=== PATIENT | female | born 1985 | race Caucasian/White ===

== ENCOUNTER 2017-12-30 10:45 | Outpatient (CLI) | payer MEDICARE, MEDICAID, SELFPAY ==
[2017-12-30 13:07] LABS: ALT 20 U/L (12-78); AST 15 U/L (15-37); Albumin 3.5 g/dL (3.4-5.0); Alkaline Phosphatase 35 U/L (46-116); Anion Gap 8.1 mmol/L (3-11); BUN 13 mg/dL (7-18); Bilirubin, Total 0.2 mg/dL (0.2-1.0); CO2 27.9 mmol/L (21.0-32.0); CREATININE 0.57 mg/dL (0.55-1.02); Calcium 8.8 mg/dL (8.5-10.1); Chloride 104 mmol/L (98-107); Cholesterol 192 mg/dL (50-200); Glucose 115 mg/dL (70-100); HDL Cholesterol 75 mg/dL (40-60); LDL CHOLESTEROL 107 mg/dL (<100); Potassium 4.3 mmol/L (3.5-5.1); Sodium 140 mmol/L (136-145); Total Protein 6.5 g/dL (6.4-8.2)
[2017-12-30 13:08] LABS: Triglyceride < 25 mg/dL (30-150)
== END 2017-12-30 11:05 ==
PROVIDERS: PCP Family Medicine; Visit Provider Family Medicine
DX: E11.9 Type 2 diabetes mellitus without complications (principal)
CPT/HCPCS: 36415; 80053; 80061; 83721; 83036

== ENCOUNTER 2018-02-02 02:11 | Outpatient (CLI) | payer MEDICARE, MEDICAID, SELFPAY ==
[2018-02-02 10:48] LABS: COMMENT (LAB VIEW ONLY) 88.66 mg/dL; Microalb ug/mg Crea 13.3 ug/mg Cr
== END 2018-02-02 02:31 ==
PROVIDERS: PCP Family Medicine; Visit Provider Family Medicine
DX: E11.9 Type 2 diabetes mellitus without complications (principal); Z79.4 Long term (current) use of insulin
CPT/HCPCS: 82043; 82570

== ENCOUNTER 2018-05-26 01:43 | Outpatient (CLI) | payer MEDICARE, MEDICAID, SELFPAY ==
[2018-05-26 09:41] LABS: Hemoglobin A1C 6.1 % (4.5-6.2)
[2018-05-26 10:09] LABS: Cholesterol 182 mg/dL (50-200); HDL Cholesterol 80 mg/dL (40-60); LDL CHOLESTEROL 93 mg/dL (<100)
[2018-05-26 10:29] LABS: Triglyceride < 25 mg/dL (30-150)
== END 2018-05-26 02:03 ==
PROVIDERS: PCP Family Medicine; Visit Provider Family Medicine
DX: E11.9 Type 2 diabetes mellitus without complications (principal); Z79.4 Long term (current) use of insulin
CPT/HCPCS: 36415; 80061; 83721; 83036

== ENCOUNTER 2018-09-07 01:44 | Outpatient (CLI) | payer MEDICARE, MEDICAID, SELFPAY ==
[2018-09-07 09:23] LABS: ALT 18 U/L (12-78); AST 12 U/L (15-37); Albumin 3.6 g/dL (3.4-5.0); Alkaline Phosphatase 44 U/L (46-116); Anion Gap 9.5 mmol/L (3-11); BUN 9 mg/dL (7-18); Bilirubin, Total 0.3 mg/dL (0.2-1.0); CO2 26.5 mmol/L (21.0-32.0); CREATININE 0.55 mg/dL (0.55-1.02); Calcium 8.5 mg/dL (8.5-10.1); Chloride 104 mmol/L (98-107); Glucose 130 mg/dL (70-100); Hemoglobin A1C 6.5 % (4.5-6.2); Sodium 140 mmol/L (136-145); Total Protein 6.7 g/dL (6.4-8.2)
== END 2018-09-07 02:04 ==
PROVIDERS: PCP Family Medicine; Visit Provider Family Medicine
DX: E11.9 Type 2 diabetes mellitus without complications (principal)
CPT/HCPCS: 36415; 80053; 83036

== ENCOUNTER 2018-10-20 15:00 | Emergency (ER) | payer MEDICARE, MEDICAID, SELFPAY ==
[2018-10-20 15:18] VITALS: BP 109/68; PULSE 97; RESP 16; TEMP 36.9; O2SAT 97
--- NOTE | 2018-10-20 15:31 | DI.CT_ITS ---
SYMPTOM/DIAGNOSIS: LEFT LOWER QUADRANT PAIN CT ABDOMEN AND PELVIS: There are no prior comparison exams. Images were performed from the lung bases through the ischial tuberosities after IV and without benefit of oral contrast. The bowel is not well evaluated without oral contrast especially due to the lack of intra-abdominal fat. There is food and fluid within the stomach which does not appear abnormally distended,. There is no bowel dilatation or wall thickening. The appendix appears normal. There is a small amount of fluid in the lower pelvis. There is a collapsing follicle of the left ovary. The right ovary is unremarkable. The urinary bladder is somewhat distended and there is a question of wall thickening. The uterus and right ovary are unremarkable. There is a tiny nonobstructing stone at the lower pole of the right kidney. The kidneys are otherwise normal in appearance. The lung bases are clear. The liver, spleen and adrenals are unremarkable. The gallbladder is contracted. The aorta is normal in diameter. IMPRESSION: Distended urinary bladder, question of wall thickening. Collapsing cysts or follicle of the left ovary with mild amount of pelvic fluid.
--- NOTE | 2018-10-20 15:32 | W.ED.GENAD ---
Discharge Plan Disposition Patient Disposition: HOME Condition: Stable Discharge Details Chief Complaint: Abd Prob Clinical Impression: Ovarian cyst, Abdominal pain Primary Care Provider: Evon Krause ED Provider: Yevgeniy Hernandez [place] Meds and New Rx's Prescriptions: Continued melatonin 3 MG tablet 3 mg PO HS RF: 0 ibuprofen 200 MG capsule 1 - 2 cap PO Q 8 HR PRN Qty: 100 RF: 4 MULTIVITAMIN GUMMY 1 tab PO DAILY RF: 0 ONETOUCH ULTRA TEST STRIPS 1 EACH strip 1 strip Miscellaneous BID Qty: 200 RF: 4 guanfacine 2 mg tablet 2 mg PO BID RF: 0 aripiprazole [Abilify] 15 mg tablet 15 mg PO HS Qty: 90 RF: 2 (DME) lancets 28 gauge misc 1 ea Miscellaneous BID Qty: 100 RF: 6 liraglutide 0.6 mg/0.1 mL (18 mg/3 mL) pen injector 1.2 mg SC DAILY Qty: 9 RF: 3 metformin 500 mg tablet 500 mg PO BID Qty: 180 RF: 3 (DME) pen needle, diabetic 31 gauge x 1/6 needle See Dose Instructions .ROUTE .MEDSUPPLY Qty: 100 RF: 4 pravastatin 40 mg tablet 40 mg PO DAILY Qty: 90 RF: 4 fluoxetine 10 mg capsule 10 mg PO DAILY Qty: 30 RF: 6 fluoxetine 20 mg capsule 20 mg PO DAILY Qty: 30 RF: 6 trazodone 100 MG tablet 100 mg PO HS RF: 0 vitamin B complex 1 EACH capsule 1 tab PO QAM RF: 0 ondansetron 4 MG tablet,disintegrating 4 mg PO Q6H PRN (Reason: Nausea) Qty: 12 RF: 0 Discharge Instructions Instructions: Ovarian Cyst (ED) Medical Decision Making 33 yo female with hx of obsessive compulsive, adhd, t2dm, who denies prior surgeries, comes in with llq pain since around 9 am. Denies pain yesterday and has no fevers, chills, sob, n/v or diarrhea. On exam has llq pain with palpation no other pain elsewhere. Suspect diverticulitis, will obtain lab work and imaging to further evaluate labs unremarkable and CT shows ovarian cyst. Her pain is significantly improved and has no tenderness now so doubt torsion. Will d/c home and advised f/u with pcp and return precautions given Differential Diagnosis diverticulitis, ovarian cyst, colitis Imaging Data Radiologic Study: Attestation: I personally reviewed and interpreted this imaging study as follows: Imaging: CT Scan Radiologist's impression: IMPRESSION: 1. Probable collapsing left ovarian cyst measuring 2 cm with a small amount of free fluid in left adnexa. Recommend correlation with clinical findings and followup pelvic ultrasound. 2. The gallbladder is contracted. Please correlate to patient's prandial state. Lab Data Lab results reviewed: Yes I reviewed the patient's lab results. HPI General Mode of arrival: ambulatory. Date/Time Provider Initiated Documentation: 10/20/18 15:25. Limitations to Documentation: no limitations. Information obtained by: patient. History of Present Illness 33 year old F presents to the emergency department with the chief complaint of abdominal pain, described as moderate, Quality is described as aching, and is localized to the abdomen. Patient reports no radiation. Patient started experiencing this hour(s) (6) and it has been constant. No relieving factors improve symptom(s), No exacerbating factors reported . Patient did receive the following treatments prior to arrival, none Related Data Home Medications Medication Instructions Recorded Confirmed melatonin 3 mg PO HS 06/21/14 10/20/18 trazodone 100 mg PO HS 09/30/14 10/20/18 vitamin B complex 1 tab PO QAM 09/30/14 10/20/18 ibuprofen 1 - 2 cap PO Q 8 HR PRN #100 02/26/15 10/20/18 tab-cap Multivitamin Gummy 1 tab PO DAILY 12/31/16 10/20/18 ondansetron 4 mg PO Q6H PRN #12 tabef 06/18/17 10/20/18 guanfacine 2 mg tablet 2 mg PO BID tab 08/02/18 10/20/18 aripiprazole 15 mg tablet 15 mg PO HS #90 tab 09/28/18 10/20/18 fluoxetine 10 mg capsule 10 mg PO DAILY #30 cap 09/28/18 10/20/18 fluoxetine 20 mg capsule 20 mg PO DAILY #30 cap 09/28/18 lancets 28 gauge #100 each 09/28/18 liraglutide 0.6 mg/0.1 mL (18 mg/3 1.2 mg SC DAILY #9 ml 09/28/18 10/20/18 mL) subcutaneous pen injector metformin 500 mg tablet 500 mg PO BID #180 tab-cap 09/28/18 10/20/18 pen needle, diabetic 31 gauge x #100 each 09/28/1802/27 pravastatin 40 mg tablet 40 mg PO DAILY #90 tab 09/28/18 10/20/18 Previous Rx's Medication Instructions Recorded ondansetron 4 mg PO Q6H PRN #12 tabef 06/18/17 aripiprazole 15 mg tablet 15 mg PO HS #90 tab 09/28/18 fluoxetine 10 mg capsule 10 mg PO DAILY #30 cap 09/28/18 fluoxetine 20 mg capsule 20 mg PO DAILY #30 cap 09/28/18 lancets 28 gauge #100 each 09/28/18 liraglutide 0.6 mg/0.1 mL (18 mg/3 1.2 mg SC DAILY #9 ml 09/28/18 mL) subcutaneous pen injector metformin 500 mg tablet 500 mg PO BID #180 tab-cap 09/28/18 pen needle, diabetic 31 gauge x #100 each 09/28/1802/27 pravastatin 40 mg tablet 40 mg PO DAILY #90 tab 09/28/18 Allergies Allergy/AdvReac Type Severity Reaction Status Date / Time sertraline AdvReac Intermediate agitation Verified 10/20/18 15:21 General Stated Complaint: Abd Prob VALDO: 3 Review of Systems Review of Systems All systems reviewed & are unremarkable except as noted in HPI and below Constitutional Denies chills, Denies fever(s) and Denies weakness ENT Denies change in voice Cardiovascular Denies chest pain and Denies dyspnea Respiratory Denies cough and Denies dyspnea Gastrointestinal Denies nausea and Denies vomiting Integumentary/Breasts Denies rash Neurologic Denies weakness Endocrine Denies cold intolerance and Denies heat intolerance [facility] Medical History (Updated 09/06/18 @ 08:46 by Evon Krause MD) Attention deficit hyperactivity disorder, combined type (Acute) Benign essential tremor (Acute 02/01/17) evaluated by Controlled type 2 diabetes mellitus without complication, with long-term current use of insulin (Acute 10/29/16) opthtalmo. negative neg.nephropathy alcohol syndrome (Acute 08/23/12) History of developmental delay (Acute 10/22/15) Obsessive-compulsive disorder (Acute) Surgical History (Updated 07/16/19 @ 08:44 by Evon Krause MD) Status post nail surgery (Inactive) Family History Mother No problems noted. Father Essential hypertension Sister No problems noted. Grandfather Stroke Grandfather No problems noted. Grandmother Heart disease Grandmother No problems noted. Social History Smoking/Tobacco Use Status: Never Alcohol Intake: never Drug use: Never Do you feel safe in your relationship?: Yes Exam Const General: no acute distress Orientation: alert HENMT Head: normal to inspection Ears: external ears normal General nose exam: external nose normal Mouth: moist mucous membranes Eyes General: appearance normal, both eyes and all related structures Neck Neck: normal visual inspection Resp Effort & Inspection: normal respiratory effort and able to speak in complete sentences Cardio Rate: regular rate GI Inspection: normal to inspection Palpation: soft Skin General skin exam: no rashes or lesions noted Neuro General: alert and oriented x3 Extrem General: normal to inspection Psych Mental Status: mental status grossly normal Course Vital Signs Temperature 36.9 C 10/20/18 15:18 Pulse 97 H 10/20/18 15:18 Respiratory Rate 16 10/20/18 15:18 Blood Pressure 109/68 10/20/18 15:18 Pulse Oximetry 97 10/20/18 15:18 Temperature 36.9 C 10/20/18 15:18 Temperature Source Skin 10/20/18 15:18 Pulse 97 H 10/20/18 15:18 Respiratory Rate 16 10/20/18 15:18 Respiratory Effort Non-Labored 10/20/18 15:18 Blood Pressure 109/68 10/20/18 15:18 Blood Pressure Position Sitting 10/20/18 15:18 Pulse Oximetry 97 10/20/18 15:18 Oxygen Delivery Method Room Air 10/20/18 15:18 Oxygen Flow Rate 0 10/20/18 15:18 Pain Level 10 10/20/18 15:18
[2018-10-20 15:46] LABS: Absolute Basophil Count 0.01 k/cumm (0.0-0.2); Absolute Eosinophil Count 0.06 k/cumm (0.0-0.7); Absolute Lymphocyte Count 1.25 k/cumm (1.2-3.4); Absolute Monocyte Count 0.53 k/cumm (0.11-0.7); Absolute Neutrophil Count 3.82 k/cumm (1.2-6.7); Basophils % 0.2; Eosinophils % 1.1; HCT 38.5 % (36.0-46.0); HGB 12.8 g/dL (12.0-15.5); Mean Corp. HGB Concentration 33.2 g/dL (32.0-36.0); Mean Corpuscular Hemoglobin 30.5 pg (27.0-33.0); Mean Corpuscular Volume 91.9 fL (80-95); Monocytes % 9.3; Neutrophils % 67.4; Platelet Count 229 x1000/uL (130-400); RBC 4.19 m/cumm (4.00-5.20); RBC Distribution Width 12.8 % (11.7-14.6); White Blood Cell Count 5.67 k/cumm (4.4-10.8)
[2018-10-20] MEDS: Ketorolac 15 MG/ML VIAL IVP (15:50)
[2018-10-20] MEDS: Normal Saline 1,000 ML 1000 ML IV (15:50)
[2018-10-20 15:51] LABS: Bilirubin Negative (Negative); Blood Negative (Negative); Clarity Clear (Clear); Glucose 100 mg/dL (Negative); Ketones Negative (Negative); Leukocyte Esterase Small (Negative); Nitrite Negative (Negative); Urobilinogen 0.2 EU/dL (Up TO 0.2); pH 5.5 (5-8)
[2018-10-20 15:59] LABS: ALT 19 U/L (14-59); AST 11 U/L (15-37); Albumin 3.5 g/dL (3.4-5.0); Alkaline Phosphatase 44 U/L (46-116); BUN 12 mg/dL (7-18); Bilirubin, Total 0.2 mg/dL (0.2-1.0); CREATININE 0.54 mg/dL (0.55-1.02); Calcium 8.8 mg/dL (8.5-10.1); Chloride 105 mmol/L (98-107); Glucose 170 mg/dL (70-100); Lipase 178 U/L (73-393); Potassium 3.6 mmol/L (3.5-5.1); Sodium 141 mmol/L (136-145); Total Protein 7.4 g/dL (6.4-8.2)
[2018-10-20 16:07] LABS: Bacteria Rare HPF (Negative); Epithelial Cells Many HPF (Negative); RBC Negative (0-2)
[2018-10-20 16:08] LABS: C & S Indicated? Yes; Casts Negative LPF (Negative); Crystals Negative HPF (Negative); Mucus Negative (Negative)
[2018-10-20] MEDS: Omnipaque 350 MG/ML 100 ML BTL IJ (16:57)
--- NOTE | 2018-10-20 17:20 | DI.VRAD_ITS ---
EXAM: CT Abdomen and Pelvis With Contrast EXAM DATE/TIME: 10/20/2018 3:32 PM CLINICAL HISTORY: 33 years old, female; Other: Lt lower quadrant pain TECHNIQUE: Imaging protocol: Computed tomography of the abdomen and pelvis with intravenous contrast. Radiation optimization: All CT scans at this facility use at least one of these dose optimization techniques: automated exposure control; mA and/or kV adjustment per patient size (includes targeted exams where dose is matched to clinical indication); or iterative reconstruction. COMPARISON: No relevant prior studies available. FINDINGS: Liver: The liver is unremarkable. Gallbladder and bile ducts: There is a contracted gallbladder. Pancreas: The pancreas is normal. Spleen: The spleen is normal. Adrenals: No adrenal mass is present. Kidneys and ureters: The kidneys excrete contrast normally without evidence of solid renal mass or hydronephrosis. Stomach and bowel: Normal. No obstruction. No mucosal thickening. Appendix: No current CT evidence of appendicitis. Intraperitoneal space: Normal. No free air. No significant fluid collection. Vasculature: Normal. No abdominal aortic aneurysm. Lymph nodes: Normal. No enlarged lymph nodes. Bladder: Unremarkable as visualized. Reproductive: There is a 2.0 cm cystic lesion in the left adnexa probably in the left ovary was slightly irregularly shaped wall with enhancement may resent a collapsing cyst with a small amount of fluid in the left adnexa. Bones/joints: No acute fracture. No dislocation. Soft tissues: Unremarkable. IMPRESSION: 1. Probable collapsing left ovarian cyst measuring 2 cm with a small amount of free fluid in left adnexa. Recommend correlation with clinical findings and followup pelvic ultrasound. 2. The gallbladder is contracted. Please correlate to patient's prandial state. Dictated and Authenticated by: Tai Martins MD. Ordering:LIVE Vuong MD
[2018-10-20 17:37] VITALS: BP 109/68; PULSE 97; RESP 16; TEMP 36.9; O2SAT 97
== END 2018-10-20 17:36 | disposition home or self-care (01) ==
PROVIDERS: Emergency Provider Emergency Medicine; PCP Family Medicine
DX: N83.202 Unspecified ovarian cyst, left side (principal); R10.32 Left lower quadrant pain; E11.9 Type 2 diabetes mellitus without complications; Z79.4 Long term (current) use of insulin
CPT/HCPCS: 36415; 80053; 81025; 83690; 96361; 96374; 99285; 74177; 81003; 81015; 85025; 87086; 99284; J1885; J3490

== ENCOUNTER 2018-12-12 02:09 | Outpatient (CLI) | payer MEDICARE, MEDICAID, SELFPAY ==
[2018-12-12 11:29] LABS: Hemoglobin A1C 6.6 % (4.5-6.2)
[2018-12-12 11:34] LABS: ALT 15 U/L (14-59); AST 12 U/L (15-37); Albumin 3.5 g/dL (3.4-5.0); Alkaline Phosphatase 44 U/L (46-116); Anion Gap 9.7 mmol/L (3-11); BUN 10 mg/dL (7-18); Bilirubin, Total 0.3 mg/dL (0.2-1.0); CO2 28.3 mmol/L (21.0-32.0); CREATININE 0.58 mg/dL (0.55-1.02); Calcium 8.9 mg/dL (8.5-10.1); Chloride 103 mmol/L (98-107); Glucose 164 mg/dL (70-100); Potassium 4.3 mmol/L (3.5-5.1); Sodium 141 mmol/L (136-145); TSH 1.28 uIU/mL (0.36-3.74); Total Protein 6.8 g/dL (6.4-8.2)
== END 2018-12-12 02:29 ==
PROVIDERS: PCP Family Medicine; Visit Provider Family Medicine
DX: E11.9 Type 2 diabetes mellitus without complications (principal); R53.83 Other fatigue
CPT/HCPCS: 36415; 80053; 83036; 84443

== ENCOUNTER 2019-08-27 15:06 | Emergency (ER) | payer MEDICARE, MEDICAID, SELFPAY ==
[2019-08-27 15:10] VITALS: BP 108/73; PULSE 80; TEMP 36.8; O2SAT 97
[2019-08-27 15:17] VITALS: RESP 17
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
[2019-08-27 15:50] LABS: Bilirubin Negative (Negative); Blood Negative (Negative); Clarity Clear (Clear); Glucose Negative (Negative); Ketones Negative (Negative); Leukocyte Esterase Negative (Negative); Nitrite Negative (Negative); Specific Gravity 1.025 (1.005-1.025); Urobilinogen 0.2 EU/dL (Up TO 0.2); pH 5.5 (5-8)
[2019-08-27 16:27] LABS: *AMPHETAMINES SCREEN URINE Negative (Negative); *BARBITURATES SCREEN URINE Negative (Negative); *BENZODIAZEPINES SCREEN URINE Negative (Negative); Cannabinoids THC Negative (Negative); Cocaine Screen,Urine Negative (Negative); METHADONE URINE SCREEN Negative (Negative); OPIATES URINE SCREEN Negative (Negative)
[2019-08-27 16:33] LABS: Tricyclic Antidepressants Negative (Negative)
--- NOTE | 2019-08-27 19:33 | NUR.NOTE ---
Nursing Note: Mental health contacted as pt requests to speak to rackman.
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
[2019-08-27 20:48] VITALS: BP 106/87; PULSE 99; RESP 16; TEMP 36.6; O2SAT 98
== END 2019-08-27 20:45 | disposition home or self-care (01) ==
PROVIDERS: Emergency Medicine; Emergency Provider Emergency Medicine; PCP Family Medicine
DX: T50.912A Poisoning by multiple unspecified drugs, medicaments and biological substances, intentional self-harm, initial encounter (principal); F42.9 Obsessive-compulsive disorder, unspecified; R45.4 Irritability and anger; F81.9 Developmental disorder of scholastic skills, unspecified; E11.9 Type 2 diabetes mellitus without complications; Z79.84 Long term (current) use of oral hypoglycemic drugs
CPT/HCPCS: 36416; 80307; 82962; 93005; 99283; 81003; 93010; 99284

== ENCOUNTER 2019-10-09 16:47 | Outpatient (REF) | payer MEDICARE, MEDICAID, SELFPAY ==
--- NOTE | 2019-10-09 14:30 | PAPFT_PTH ---
PATIENT: Lady Farr LOC: [facility] U#:[id number] AGE/SX: 34/F ROOM: RE10/09/[address]: Evon Krause MD : 1985 BED: DIS: 10/09/2019 SPEC #: [id number] RECD: 10/10/19 12:41 STATUS: JOAN REJenny #: [id number] SHERRY: 10/09/19 14:[address]: Evon Krause [facility]PT[facility] Cytology RECD BY: Elizabeth Berry Tissues: 1 - CX/ENDOCX FOR PAP SMEARS Procedures: PAP THIN PREP/UVM Screening HPV DNA PROBE Comments: [id number]
== END 2019-10-09 17:07 ==
LOC: LBN 16:47
PROVIDERS: PCP Family Medicine; Visit Provider Family Medicine
DX: Z11.51 Encounter for screening for human papillomavirus (HPV) (principal)
CPT/HCPCS: 88142; 87624

== ENCOUNTER 2020-03-29 01:12 | Outpatient (CLI) | payer MEDICARE, MEDICAID, SELFPAY ==
[2020-03-29 12:58] LABS: Hemoglobin A1C 6.2 % (<5.7)
[2020-03-29 14:02] LABS: ALT 18 U/L (14-59); AST 15 U/L (15-37); Albumin 4.1 g/dL (3.4-5.0); Alkaline Phosphatase 42 U/L (46-116); Anion Gap 9.2 mmol/L (3-11); BUN 12 mg/dL (7-18); Bilirubin, Total 0.3 mg/dL (0.2-1.0); CO2 28.8 mmol/L (21.0-32.0); CREATININE 0.6 mg/dL (0.55-1.02); Calcium 9.4 mg/dL (8.5-10.1); Calculated LDL 137 mg/dL (<100); Chloride 104 mmol/L (98-107); Cholesterol 234 mg/dL (<200); Glucose 111 mg/dL (74-106); HDL Cholesterol 92 mg/dL (40-60); Potassium 4.2 mmol/L (3.5-5.1); Sodium 142 mmol/L (136-145); Total Protein 7.3 g/dL (6.4-8.2); Triglyceride 25 mg/dL (<150)
== END 2020-03-29 01:13 | disposition home or self-care (01) ==
LOC: LOS 01:12
PROVIDERS: PCP Family Medicine; Visit Provider Family Medicine
DX: E11.9 Type 2 diabetes mellitus without complications (principal)
CPT/HCPCS: 36415; 80053; 80061; 83036

== ENCOUNTER 2020-05-09 11:47 | Inpatient (IN) | payer MEDICARE, MEDICAID, SELFPAY ==
[2020-05-09 12:06] VITALS: BP 121/74; PULSE 91; RESP 16; TEMP 36.7; O2SAT 99
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
[2020-05-09 13:14] LABS: Bilirubin Negative (Negative); Blood Negative (Negative); Clarity Clear (Clear); Glucose Negative (Negative); Ketones Negative (Negative); Leukocyte Esterase Negative (Negative); Nitrite Negative (Negative); Specific Gravity <= 1.005 (1.005-1.025); Urobilinogen 0.2 EU/dL (Up TO 0.2); pH 5.5 (5-8)
[2020-05-09 13:22] LABS: Abs Immature Grans 0.01 10^3/uL (0.0-0.06); Absolute Basophil Count 0.02 10^3/uL (0.0-0.2); Absolute Eosinophil Count 0.56 10^3/uL (0.0-0.7); Absolute Lymphocyte Count 1.36 10^3/uL (1.2-3.4); Absolute Monocyte Count 0.33 10^3/uL (0.1-0.8); Absolute Neutrophil Count 3.66 10^3/uL (1.2-6.7); Basophils % 0.3; Eosinophils % 9.4; HCT 42.9 % (36.0-46.0); HGB 14.3 g/dL (11.2-15.7); Immature Grans % 0.2; Lymphocytes % 22.9; MCH 31.2 pg (27.0-33.0); MCHC 33.3 % (32.0-36.0); MCV 93.5 fL (80-95); MPV 9.8 fL (8.0-11.0); Monocytes % 5.6; Neutrophils % 61.6; Nucleated RBC 0 %; Platelet Count 237 10^3/uL (130-400); RBC 4.59 10^6/uL (3.93-5.22); RDW 12.6 % (11.7-14.6); RDW-SD 43.3 fL; WBC 5.94 10^3/uL (4.4-10.8)
[2020-05-09 13:22] LABS: *AMPHETAMINES SCREEN URINE Negative (Negative); *BARBITURATES SCREEN URINE Negative (Negative); *BENZODIAZEPINES SCREEN URINE Negative (Negative); Cannabinoids THC Negative (Negative); Cocaine Screen,Urine Negative (Negative); METHADONE URINE SCREEN Negative (Negative); OPIATES URINE SCREEN Negative (Negative)
[2020-05-09 13:24] LABS: Tricyclic Antidepressants Negative (Negative)
[2020-05-09 13:35] LABS: ALT 18 U/L (14-59); AST 11 U/L (15-37); Albumin 4.1 g/dL (3.4-5.0); Alkaline Phosphatase 48 U/L (46-116); BUN 15 mg/dL (7-18); Bilirubin, Total 0.2 mg/dL (0.2-1.0); CREATININE 0.5 mg/dL (0.55-1.02); Chloride 103 mmol/L (98-107); Glucose 121 mg/dL (74-106); Potassium 3.6 mmol/L (3.5-5.1); Sodium 139 mmol/L (136-145); Total Protein 8.2 g/dL (6.4-8.2)
[2020-05-09 13:35] LABS: Source Nasal/Nares
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
[2020-05-09 14:13] LABS: Salicylate < 2.8 mg/dL (<2.8)
[2020-05-09 14:17] LABS: COVID-19 PCR Negative (Negative)
[2020-05-09 14:18] LABS: Acetaminophen < 2 ug/mL (10-30)
--- NOTE | 2020-05-09 14:33 | CMSP_ITS ---
- If Service Date Differs Date of service: 05/09/20 Time of Service: 14:33 Care Management Safety Plan Status: Voluntary Chief Complaint: Lady is a 34 year old female who comes to the ED due to increased agitation and dangerous behaviors. Lady, who receives services through the IDDS Program at [facility], has an extensive psychiatric history. She is impulsive and has the potential of becoming quite destructive and assaultive to staff. Lady is pleasant when meets with her, but she appears anxious and has difficulty sitting still. She asks repeatedly if she is going anywhere tonight. provides her with a Ismael deck of cards, as she reportedly enjoys the game and playing Ismael helps to keep her calm. also offers a coloring book and crayons, which Lady declines saying she does not like to color. Referrals were made to [facility], [facility], and [facility]. There are no available beds this evening but [facility] and [facility] are considering her for admission tomorrow. VOLUNTARY FOR INPATIENT PSYCHIATRIC STABILIZATION. Patient is appropriate in all interactions since arriving at [facility]; Pt has demonstrated appropriate coping and communication skills, has articulated his or her needs and concerns and is fully engaged during staff interactions. Safety plan has been established with patient, and care team, to adhere to patient goals, identify restrictions based on behavioral status, address nutrition, and determine allowed personal belongings, tools for hygiene and personal care. Determine level of activity including ambulation, level of supervision, visitors, and determine privileges based on behaviors and level of engagement by pt. SAFETY PLAN: 1. Will remain on suicide precautions. In Paper Clothes 2. Will remain in room under direct supervision of one-on-one staff at all times provided by CPSO, TELEVISION AGENT, NARCOTICS INVESTIGATOR walking dragline operator. 3. May have paper cups, plates, finger foods as well as a cardboard spoon with which to eat meals. 4. Follow [facility] Management of the Admitted Behavioral Health Patient policy. 5. Comfort bath system only while in the ED. If moved to Med/Surg, permitted to shower at RN discretion. 6. No personal belongings 7. Visitors: Limited to [facility] IDDS Program staff. 8. Activities: Television if available, cards, and other activities at nursing discretion. 9. Bathroom privileges: Must be accompanied by staff while in the ED. If moved to Med/Surg, may use bathroom in room without supervision. 10. Phone: Phone use at the discretion of nursing staff. 11. Due to VOLUNTARY status, if patient wishes to leave [facility], staff will contact [facility] Crisis Screener ([phone]) and On-Call Medical/Surgery Registered Nurse ([phone]) as soon as possible. In the event of elopement, notify [facility] Police ([phone]). Patient is currently voluntarily at [facility] and seeking inpatient admission when a bed becomes available. [facility] Frontline Therapist Asst will continue seeking placement. Please contact the Electrocardiograph Repairer Medical/Surgery Registered Nurse ([phone]) and [facility] Therapist Asst ([phone]) for any needed changes in the Safety Plan. Safety plan has been provided to interdepartmental care team.
--- NOTE | 2020-05-09 15:11 | PDOC.MHCN ---
Date of service: 05/09/20 Time of Service: 15:11 Mental Health Crisis Note Presenting Issue How did you arrive at the ED and why did you come: Pt came to the ER today at the request of this clinician due to increased dangerous behaviors that have not been able to be managed or redirected as her treatment team would usually do. Precipitating Factors Pt reported that she is suicidal and wants to stab herself in the arm with a fork. She denied HI however, endorses wanting ot hurt people when she gets in this state. Disposition BEHAVIOR: Pt is cooperative with the assessment other than being anxious about the outcome. EYE CONTACT: Pt makes good eye contact. MOOD: Pt reported she is depressed and misses her boyfriend and her father. AFFECT: Pt's affect is anxious and tearful. APPETITE: Pt's appetite is good. SLEEP(trouble falling/staying asleep: Pt reported she is unable to sleep. Plan Pt reported that she knows she is in crisis when she has an overwhelming feeling to hurt others, break things, spit at others, and threaten to hurt others. She currently will play games, eat, take deep breathes and eat to deal with crisis. She identified her grandmother, sister and sister's and daughter as her natural supports. She identified her professional supports are her employment case manager, psychiatrist, previous correctional casework specialist and Direct Support Professionals. When asked what is worth living for Pt stated I don't know. Pt agrees that she needs help now and possibly a medication adjustment. She is willing to go to [facility] to be medically cleared and is seeking a voluntary psychiatric admission. Although the behaviors witnessed over the last two weeks have not been abnormal for her to do with the exception of the defecating and urinating on the floor, it is not typical for those behaviors to be this intense or ongoing as long as they have been. Because of this the Pt's team believe that her current state is not typical nor for her to be this unmanageable for the extended amount of time where she is not able to be redirected. Referrals have been sent to [facility], [facility] and [facility] Signature Clinician's Name/Title: Shae Wright MS, [facility] Emergency Services Clinician, [facility]
[2020-05-09] MEDS: LORazepam 1 MG TAB 2 MG PO ×2 (15:45→19:08)
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
[2020-05-09] MEDS: Amoxicillin 875/Clav. 125 TAB PO (19:58)
[2020-05-09 20:06] LABS: *AMPHETAMINES SCREEN URINE Negative (Negative); *BARBITURATES SCREEN URINE Negative (Negative); *BENZODIAZEPINES SCREEN URINE Negative (Negative); Cannabinoids THC Negative (Negative); Cocaine Screen,Urine Negative (Negative); METHADONE URINE SCREEN Negative (Negative); OPIATES URINE SCREEN Negative (Negative)
[2020-05-09 20:13] LABS: Tricyclic Antidepressants Negative (Negative)
[2020-05-09 20:18] LABS: Bilirubin Negative (Negative); Blood Negative (Negative); Clarity Clear (Clear); Glucose Negative (Negative); Ketones Negative (Negative); Leukocyte Esterase Negative (Negative); Nitrite Negative (Negative); Specific Gravity 1.025 (1.005-1.025); Urobilinogen 0.2 EU/dL (Up TO 0.2)
[2020-05-09] MEDS: ARIPiprazole 15 MG TAB PO (21:36)
[2020-05-09] MEDS: traZODone 100 MG TAB PO (21:37)
[2020-05-09] MEDS: Pravastatin 40 MG TAB 80 MG PO (21:37)
[2020-05-09] MEDS: Melatonin 3 MG TAB PO (21:37)
[2020-05-09] MEDS: metFORMIN 500 MG TAB PO (21:37)
[2020-05-10] MEDS: Acetaminophen 325 MG TAB 650 MG PO ×2 (04:13→19:45)
[2020-05-10] MEDS: LORazepam 1 MG TAB PO (04:58)
--- NOTE | 2020-05-10 08:14 | NUR.NOTE ---
Nursing Note: Emmie Pinto, guardian, .
[2020-05-10] MEDS: guanFACINE 1 MG TAB 2 MG PO ×2 (08:21→21:32)
[2020-05-10] MEDS: FLUoxetine 10 MG TAB 30 MG PO (08:21)
[2020-05-10] MEDS: LORazepam 1 MG TAB 2 MG PO ×2 (08:22→15:14)
[2020-05-10] MEDS: Amoxicillin 875/Clav. 125 TAB PO ×2 (08:22→19:46)
[2020-05-10] MEDS: metFORMIN 500 MG TAB PO ×2 (08:22→18:45)
--- NOTE | 2020-05-10 08:53 | PDOC.CMSAFED ---
- If Service Date Differs Date of service: 05/10/20 Time of Service: 08:53 Care Management Safety Plan Status: Voluntary Chief Complaint: Lady is a 34 year old female who comes to the ED due to increased agitation and dangerous behaviors. Lady, who receives services through the IDDS Program at [facility], has an extensive psychiatric history. Per report, she has the potential to be impulsive, destructive and assaultive to staff. Lady has had periods of anxiety today, as noted by pacing, and crying per [facility]. SUKUMAR Fernandez reports JESSICA and showering support regulation per Mihir Arredondo [facility]-IDDS ([phone]). She also appears to do very well with her own product support engineer present from the IDDS program. Referrals were made to [facility], [facility], and [facility]. Edin [facility] at [facility] reports no bed availability at this time with placement options unlikely over the weekend. Huddle @1320 with Mendy; M/S Director, Shanelle MORALES, Rebecca PATINO, and Dilcia JONES. Consensus was for Lady to remain in the ED at this time for further observation prior to admitting to transition area. Rebecca reports benefits of admitting to transition area would be a larger, calmer and quieter space and television. VOLUNTARY FOR INPATIENT PSYCHIATRIC STABILIZATION. Patient is appropriate in all interactions since arriving at [facility]; Pt has demonstrated appropriate coping and communication skills, has articulated his or her needs and concerns and is fully engaged during staff interactions. Safety plan has been established with patient, and care team, to adhere to patient goals, identify restrictions based on behavioral status, address nutrition, and determine allowed personal belongings, tools for hygiene and personal care. Determine level of activity including ambulation, level of supervision, visitors, and determine privileges based on behaviors and level of engagement by pt. SAFETY PLAN: 1. Will remain on suicide precautions. In Paper Clothes 2. Will remain in room under direct supervision of one-on-one staff at all times provided by CPSO, CRACKING STILL OPERATOR, CIVIL DRAFTER overhead crane inspector. 3. May have paper cups, plates, finger foods as well as a cardboard spoon with which to eat meals. 4. Follow [facility] Management of the Admitted Behavioral Health Patient policy. 5. Comfort bath system only while in the ED. If moved to Med/Surg, permitted to shower at RN discretion. 6. No personal belongings 7. Visitors: Limited to [facility] IDDS Program staff. 8. Activities: Television if available, cards, and other activities at nursing discretion. 9. Bathroom privileges: Must be accompanied by staff while in the ED. If moved to Med/Surg, may use bathroom in room without supervision. 10. Phone: Phone use at the discretion of nursing staff. 11. Due to VOLUNTARY status, if patient wishes to leave [facility], staff will contact [facility] Crisis Screener ([phone]) and On-Call Adjunct Lecturer ([phone]) as soon as possible. In the event of elopement, notify [facility] Police ([phone]). Patient is currently voluntarily at [facility] and seeking inpatient admission when a bed becomes available. [facility] Frontline Channel Machine Operator will continue seeking placement. Please contact the Feed Mill Operator Adjunct Lecturer ([phone]) and [facility] Channel Machine Operator ([phone]) for any needed changes in the Safety Plan. Safety plan has been provided to interdepartmental care team.
--- NOTE | 2020-05-10 11:35 | NUR.NOTE ---
Nursing Note: Spoke with Emmie Pinto guardian of the patient and notified her that there were no beds available for the patient at this time. We would notifiy her of any changes. Tania Kiser
[2020-05-10 18:57] VITALS: BP 118/83; PULSE 109; RESP 18; TEMP 36.5; O2SAT 100
[2020-05-10 19:37] VITALS: BP 105/69; PULSE 92; RESP 17; TEMP 36.5; O2SAT 100
[2020-05-10 19:54] VITALS: BP 105/69; PULSE 92; RESP 17; TEMP 36.5; O2SAT 100
[2020-05-10] MEDS: traZODone 100 MG TAB PO (21:32)
[2020-05-10] MEDS: Melatonin 3 MG TAB PO (21:32)
[2020-05-10] MEDS: ARIPiprazole 15 MG TAB PO (21:33)
--- NOTE | 2020-05-11 | DI.RAD_ITS ---
EXAM: XR KNEE LT 3V AP,LAT,SHELLEY CLINICAL HISTORY: trauma. TECHNIQUE: 2D digital imaging was performed. COMPARISON: No exams were available for comparison FINDINGS: No evidence of fracture nor obvious joint effusion. No degenerative changes. Bone density normal. IMPRESSION: No fracture evident. DATA REPOSITORY: RADIATION DOSE DELIVERED:
[2020-05-11 03:00] VITALS: BP 104/66; PULSE 92; RESP 17; TEMP 36.5; O2SAT 97
[2020-05-11] MEDS: Lidocaine 5% Patch 1 PATCH TP (04:45)
[2020-05-11] MEDS: LORazepam 1 MG TAB PO ×3 (04:45→14:16)
[2020-05-11 07:24] VITALS: BP 99/66; PULSE 82; RESP 17; TEMP 36.1; O2SAT 99
[2020-05-11] MEDS: Acetaminophen 325 MG TAB 650 MG PO ×2 (09:26→15:41)
[2020-05-11] MEDS: metFORMIN 500 MG TAB PO ×2 (09:26→17:52)
[2020-05-11] MEDS: Amoxicillin 875/Clav. 125 TAB PO ×2 (09:27→19:41)
[2020-05-11] MEDS: FLUoxetine 10 MG TAB 30 MG PO (09:27)
[2020-05-11] MEDS: guanFACINE 1 MG TAB 2 MG PO ×2 (09:27→19:40)
--- NOTE | 2020-05-11 10:32 | CMSP_ITS ---
- If Service Date Differs Date of service: 05/11/20 Time of Service: 10:32 Care Management Safety Plan Status: Voluntary Huddle @1000 with: Leilani, Nursing pulp plant supervisor, NUVIA Snyder, Shanelle MOTA, Yvonne PATINO, Silvana Patrick, DRYWALL CONTRACTOR, and Kim, [facility] crisis screener . VOLUNTARY FOR INPATIENT PSYCHIATRIC STABILIZATION. Patient is appropriate in all interactions since arriving at [facility]; Pt has demonstrated appropriate coping and communication skills, has articulated his or her needs and concerns and is fully engaged during staff interactions. Safety plan has been established with patient, and care team, to adhere to patient goals, identify restrictions based on behavioral status, address nutrition, and determine allowed personal belongings, tools for hygiene and personal care. Determine level of activity including ambulation, level of supervision, visitors, and determine privileges based on behaviors and level of engagement by pt. SAFETY PLAN: 1. Will remain on suicide precautions. In Paper Clothes 2. Will remain in room under direct supervision of one-on-one staff at all times provided by CPSO, MEGAN, ZIPPER SETTER LOCKSTITCH lap winding machine operator. 3. May have paper cups, plates, finger foods as well as a cardboard spoon with which to eat meals. 4. Follow [facility] Management of the Admitted Behavioral Health Patient policy. 5. Shower permitted at RN discretion. 6. No personal belongings 7. Visitors: Limited to [facility] IDDS Program staff. 8. Activities: Television if available, cards, and other activities at nursing discretion. 9. Bathroom privileges: May use bathroom in room without supervision. 10. Phone: Hospital phone use at the discretion of nursing staff. 11. Due to VOLUNTARY status, if patient wishes to leave [facility], staff will contact [facility] Crisis Screener ([phone]) and On-Call Fish Rod Maker ([phone]) as soon as possible. In the event of elopement, notify [facility] Police ([phone]). Patient is currently voluntarily at [facility] and seeking inpatient admission when a bed becomes available. [facility] Frontline Scraper Hand will continue seeking placement. Please contact the Blood Tester Fowl Fish Rod Maker ([phone]) and [facility] Scraper Hand ([phone]) for any needed changes in the Safety Plan. Safety plan has been provided to interdepartmental care team. cc:
--- NOTE | 2020-05-11 10:32 | PDOC.CMSAFE ---
- If Service Date Differs Date of service: 05/11/20 Time of Service: 10:32 Care Management Safety Plan Status: Voluntary Huddle @1000 with: Leilani, Nursing car cleaning supervisor, NUVIA Snyder, Shanelle MOTA, Yvonne PATINO, Silvana Patrick, EXPLOSIVE ORDNANCE DISPOSAL MANAGER, and Kim, [facility] crisis screener . VOLUNTARY FOR INPATIENT PSYCHIATRIC STABILIZATION. Patient is appropriate in all interactions since arriving at [facility]; Pt has demonstrated appropriate coping and communication skills, has articulated his or her needs and concerns and is fully engaged during staff interactions. Safety plan has been established with patient, and care team, to adhere to patient goals, identify restrictions based on behavioral status, address nutrition, and determine allowed personal belongings, tools for hygiene and personal care. Determine level of activity including ambulation, level of supervision, visitors, and determine privileges based on behaviors and level of engagement by pt. SAFETY PLAN: 1. Will remain on suicide precautions. In Paper Clothes 2. Will remain in room under direct supervision of one-on-one staff at all times provided by CPSO, MEGAN, PRINT LINE OPERATOR peripheral edp equipment operator. 3. May have paper cups, plates, finger foods as well as a cardboard spoon with which to eat meals. 4. Follow [facility] Management of the Admitted Behavioral Health Patient policy. 5. Shower permitted at RN discretion. 6. No personal belongings 7. Visitors: Limited to [facility] IDDS Program staff. 8. Activities: Television if available, cards, and other activities at nursing discretion. 9. Bathroom privileges: May use bathroom in room without supervision. 10. Phone: Hospital phone use at the discretion of nursing staff. 11. Due to VOLUNTARY status, if patient wishes to leave [facility], staff will contact [facility] Crisis Screener ([phone]) and On-Call Big Data Hadoop Developer ([phone]) as soon as possible. In the event of elopement, notify [facility] Police ([phone]). Patient is currently voluntarily at [facility] and seeking inpatient admission when a bed becomes available. [facility] Frontline Apparel Merchandiser will continue seeking placement. Please contact the Search Lead Big Data Hadoop Developer ([phone]) and [facility] Apparel Merchandiser ([phone]) for any needed changes in the Safety Plan. Safety plan has been provided to interdepartmental care team. cc:
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
--- NOTE | 2020-05-11 11:42 | CMPROGNOTE_ITS ---
- If Service Date Differs Date of service: 05/11/20 Time of Service: 11:42 Care Management Progress Note S/O: A: Lady is a 34 year old woman admitted on 05/10/20 with SI Plan: Safety plan has been established with patient, and care team, to adhere to patient goals, identify restrictions based on behavioral status, address nutrition, and determine allowed personal belongings, tools for hygiene and personal care. Determine level of activity including ambulation, level of supervision, visitors, and determine privileges based on behaviors and level of engagement by pt. SAFETY PLAN: 1. Will remain on suicide precautions. In Paper Clothes 2. Will remain in room under direct supervision of one-on-one staff at all times provided by CPSO, SENIOR UI DESIGNER, INDUSTRIAL RADIOGRAPHER inspector final assembly mechanical. 3. May have paper cups, plates, finger foods as well as a cardboard spoon with which to eat meals. 4. Follow [facility] Management of the Admitted Behavioral Health Patient policy. 5. Shower permitted at RN discretion. 6. No personal belongings 7. Visitors: Limited to [facility] IDDS Program staff. 8. Activities: Television if available, cards, and other activities at nursing discretion. 9. Bathroom privileges: May use bathroom in room without supervision. 10. Phone: Hospital phone use at the discretion of nursing staff. 11. Due to VOLUNTARY status, if patient wishes to leave [facility], staff will contact [facility] Crisis Screener ([phone]) and On-Call Etcher Printed Circuit Boards ([phone]) as soon as possible. In the event of elopement, notify [facility] Police ([phone]). Patient is currently voluntarily at [facility] and seeking inpatient admission when a bed becomes available. [facility] Frontline Club Waiter/Waitress will continue seeking placement. Please contact the Diplomatic Officer Etcher Printed Circuit Boards ([phone]) and [facility] Club Waiter/Waitress ([phone]) for any needed changes in the Safety Plan. Safety plan has been provided to interdepartmental care team. cc:
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
[2020-05-11] MEDS: diphenhydrAMINE 25 MG CAP PO ×2 (12:54→19:41)
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
--- NOTE | 2020-05-11 14:55 | DI.VRAD_ITS ---
PROCEDURE INFORMATION: Exam: XR Left Knee Exam date and time: 05/11/2020 2:48 PM Age: 34 years old Clinical indication: Injury or trauma; Fall; Blunt trauma; Knee; Left TECHNIQUE: Imaging protocol: XR Left knee. Views: 3 views. COMPARISON: No relevant prior studies available. FINDINGS: Bones/joints: Normal. Soft tissues: Normal. IMPRESSION: No acute findings. Dictated and Authenticated by: Deborah Krueger MD. Ordering:JAMES Pina MD
[2020-05-11] MEDS: Diclofenac 1% Gel 100 GM TUBE TP ×2 (15:41→19:41)
[2020-05-11] MEDS: LORazepam 1 MG TAB 2 MG PO (17:52)
[2020-05-11] MEDS: Pravastatin 40 MG TAB 80 MG PO (19:41)
[2020-05-11 19:55] VITALS: BP 109/71; PULSE 89; RESP 17; TEMP 36.8; O2SAT 99
[2020-05-12] MEDS: ARIPiprazole 15 MG TAB PO ×2 (01:02→22:30)
[2020-05-12] MEDS: Acetaminophen 325 MG TAB 650 MG PO ×4 (01:02→22:31)
[2020-05-12] MEDS: traZODone 100 MG TAB PO ×2 (01:02→22:31)
[2020-05-12] MEDS: Melatonin 3 MG TAB PO ×2 (01:03→22:31)
[2020-05-12 05:45] VITALS: BP 103/68; PULSE 87; RESP 17; TEMP 36.4; O2SAT 97
[2020-05-12] MEDS: LORazepam 1 MG TAB 2 MG PO ×3 (06:26→22:31)
[2020-05-12 07:09] VITALS: BP 109/77; PULSE 95; RESP 17; TEMP 36.5; O2SAT 99
[2020-05-12] MEDS: Amoxicillin 875/Clav. 125 TAB PO ×2 (08:46→19:30)
[2020-05-12] MEDS: Diclofenac 1% Gel 100 GM TUBE TP ×4 (08:46→19:31)
[2020-05-12] MEDS: guanFACINE 1 MG TAB 2 MG PO ×2 (08:46→19:31)
[2020-05-12] MEDS: FLUoxetine 10 MG TAB PO (08:47)
[2020-05-12] MEDS: FLUoxetine 20 MG CAP PO (08:47)
[2020-05-12] MEDS: metFORMIN 500 MG TAB PO ×2 (08:47→17:58)
[2020-05-12] MEDS: diphenhydrAMINE 25 MG CAP PO ×2 (08:47→19:31)
[2020-05-12] MEDS: Water,Injection,Sterile 10 ML VIAL (11:10)
[2020-05-12] MEDS: OLANZapine 10 MG VIAL 7.5 MG IM ×2 (11:10→22:30)
--- NOTE | 2020-05-12 12:02 | CMSP_ITS ---
- If Service Date Differs Date of service: 05/12/20 Time of Service: 12:02 Care Management Safety Plan Status: Voluntary decentralized huddle @ 2:30 pm with: Nimisha, Nursing mail delivery supervisor; NUVAI Snyder; Shanelle MOTA; Kwadwo PATINO, VOLUNTARY FOR INPATIENT PSYCHIATRIC STABILIZATION. Patient is appropriate in all interactions since arriving at [facility]; Pt has demonstrated appropriate coping and communication skills, has articulated his or her needs and concerns and is fully engaged during staff interactions. Safety plan has been established with patient, and care team, to adhere to patient goals, identify restrictions based on behavioral status, address nutrition, and determine allowed personal belongings, tools for hygiene and personal care. Determine level of activity including ambulation, level of supervision, visitors, and determine privileges based on behaviors and level of engagement by pt. SAFETY PLAN: 1. Will remain on suicide precautions. In Paper Clothes 2. Will remain in room under direct supervision of one-on-one staff at all times provided by CPSO, HIGH DENSITY PRESS OPERATOR, ICE HOCKEY COACH visual merchandising coordinator. 3. May have paper cups, plates, finger foods as well as a cardboard spoon with which to eat meals. 4. Follow [facility] Management of the Admitted Behavioral Health Patient policy. 5. Shower permitted at RN discretion. 6. No personal belongings except itens provided by staff such as stuffed cat and coloring book and crayons, at nursing discretion 7. Visitors: Limited to [facility] IDDS Program staff. 8. Activities: Television if available, cards, and other activities at nursing discretion. 9. Bathroom privileges: May use bathroom in room without supervision. 10. Phone: Hospital phone use at the discretion of nursing staff. 11. Due to VOLUNTARY status, if patient wishes to leave [facility], staff will contact [facility] Crisis Screener ([phone]) and On-Call Scientific Diver ([phone]) as soon as possible. In the event of elopement, notify [place] [facility] Police ([phone]). Patient is currently voluntarily at [facility] and seeking inpatient admission when a bed becomes available. [facility] Frontline Apartment Leasing Consultant will continue seeking placement. Please contact the Cloth Desizing Range Operator Chief Scientific Diver ([phone]) and [facility] Apartment Leasing Consultant ([phone]) for any needed changes in the Safety Plan. Safety plan has been provided to interdepartmental care team.
--- NOTE | 2020-05-12 12:02 | PDOC.CMSAFE ---
- If Service Date Differs Date of service: 05/12/20 Time of Service: 12:02 Care Management Safety Plan Status: Voluntary decentralized huddle @ 2:30 pm with: Nimisha, Nursing electric motor repairing supervisor; NUVIA Snyder; Shanelle MOTA; Kwadwo PATINO, VOLUNTARY FOR INPATIENT PSYCHIATRIC STABILIZATION. Patient is appropriate in all interactions since arriving at [facility]; Pt has demonstrated appropriate coping and communication skills, has articulated his or her needs and concerns and is fully engaged during staff interactions. Safety plan has been established with patient, and care team, to adhere to patient goals, identify restrictions based on behavioral status, address nutrition, and determine allowed personal belongings, tools for hygiene and personal care. Determine level of activity including ambulation, level of supervision, visitors, and determine privileges based on behaviors and level of engagement by pt. SAFETY PLAN: 1. Will remain on suicide precautions. In Paper Clothes 2. Will remain in room under direct supervision of one-on-one staff at all times provided by CPSO, CHEESEMAKER, ROAD MIXER OPERATOR warehouse administrator. 3. May have paper cups, plates, finger foods as well as a cardboard spoon with which to eat meals. 4. Follow [facility] Management of the Admitted Behavioral Health Patient policy. 5. Shower permitted at RN discretion. 6. No personal belongings except itens provided by staff such as stuffed cat and coloring book and crayons, at nursing discretion 7. Visitors: Limited to [facility] IDDS Program staff. 8. Activities: Television if available, cards, and other activities at nursing discretion. 9. Bathroom privileges: May use bathroom in room without supervision. 10. Phone: Hospital phone use at the discretion of nursing staff. 11. Due to VOLUNTARY status, if patient wishes to leave [facility], staff will contact [facility] Crisis Screener ([phone]) and On-Call Foster Care Worker ([phone]) as soon as possible. In the event of elopement, notify [employer] Police ([phone]). Patient is currently voluntarily at [facility] and seeking inpatient admission when a bed becomes available. [facility] Frontline Pump Installation And Servicer will continue seeking placement. Please contact the Grounds Cleaner Foster Care Worker ([phone]) and [facility] Pump Installation And Servicer ([phone]) for any needed changes in the Safety Plan. Safety plan has been provided to interdepartmental care team.
--- NOTE | 2020-05-12 12:33 | PDOC.MHCN_ITS ---
Date of service: 05/12/20 Time of Service: 12:40 Mental Health Crisis Note Presenting Issue How did you arrive at the ED and why did you come: Client is seen today for a face to face check in assessment after arriving at [facility] ED on 05/09/2020 endorsing SI with a plan. Precipitating Factors Client states that she is currently having SI/HI with intent to harm herself and others. Since yesterday afternoon client has been biting her arm. punching the wall, and banging her head when she feels like hurting herself. She has not stated how she would harm other people just states that she wants to harm other people. Disposition BEHAVIOR: Client is laying down on the bed when this documentation writer arrives in person. She is visiting with another [facility] worker. She states that she is feeling bad this morning and that she did not sleep well due to her knee hurting her. She has a swollen knee, but had x-rays yesterday afternoon and they showed that her knee was bruised nothing was broken or sprained. She shows this documentation writer the bite vanessa that are on her hand that she had given herself yesterday afternoon and this morning. EYE CONTACT: Client makes minimal eye contact with this documentation writer, looking around the room, at the other [facility] worker and was worried about what her CPSO was doing in the hallway. MOOD: Client appears to be depressed and tearful, stating that she is sad and that she is scared of the unknown of not knowing where she is going and what to expect when she gets there. AFFECT: Client is showing flat affect. APPETITE: Client states that she has been eating good, sharing with this documentation writer what she ate for breakfast and what she was going to be eating for lunch. SLEEP(trouble falling/staying asleep: Client states that she slept ok, but did not sleep very well due to her knee bothering her. Plan This documentation writer called hospitals as referrals were sent to [place], [facility], and [facility]. No hospitals with bed availability today, although potential placement at [facility] for tomorrow. Safety plan in place with patient care technician. Will do check-in zoom with client later this afternoon. Signature Clinician's Name/Title: Kim Gifford [facility] Emergency Clinician
--- NOTE | 2020-05-12 13:55 | W.PM.PROGNOT ---
Date of Service Date of service: 05/12/20 Time of Service: 13:55 Assessment and Plan Assessment and plan (1) Psychosis: Start date: 05/12/20 Start time: 14:05 Status: Acute Assessment and plan: Behavioral today. Hitting head against the wall requiring dosing of zyprexa since then she has been cooperative and sleeping off and on (2) Aggressive behavior: Start date: 05/12/20 Start time: 14:09 Status: Acute Assessment and plan: No outbursts today, see above, continue to monitor with caution. (3) Diabetes mellitus type 2, controlled: Start date: 05/12/20 Start time: 14:11 Status: Acute Assessment and plan: continue metformin and diabetes controlled diet. (4) Knee pain: Start date: 05/12/20 Start time: 14:11 Status: Acute Assessment and plan: C/o knee pain unsure if trauma, will order xray, if so, until continue ibuprofen, add voltaren gel (5) Bite wound: Start date: 05/12/20 Start time: 14:29 Status: Acute Assessment and plan: superficial wound treated with augmentin for prevention dose /10 will add bacitracin to wound as well to right hand above discussed with Dr. Mccall who is in agreement. Subjective Subjective Patient reports: other Interval history since last seen: Behavioral issues this morning including hitting her head on the wall and biting her right wrist above the burn frankie no open bite vanessa, requiring a dose of IM zyprexa since then she has been cooperative and sleeping after lunch. Exam Narrative Exam Narrative: Const General: cooperative and no acute distress HENMT Mouth: moist mucous membranes Eyes Conjunctivae: normal conjunctivae Sclera: normal sclerae Neck Neck: supple Resp Auscultation: clear to auscultation bilaterally, no rales, no rhonchi and no wheezes Cardio Rate: regular rate and not tachycardic Rhythm: regular rhythm GI Palpation: soft, not firm, no guarding, no masses, not rigid and nontender Skin Trauma: other (Superficial bite frankie right hand healing with no erythema or induration ) Neuro General: patient alert, patient awake, patient oriented x3 and tone normal Extrem General: no edema Psych Appearance: grossly normal Mood: anxious mood Affect: animated Other: Patient notes she does not feel safe Objective Last Vital Signs Temp 36.5 C 05/12/20 07:09 Pulse 95 H 05/12/20 07:09 Resp 17 05/12/20 07:09 BP 109/77 05/12/20 07:09 Pulse Ox 99 05/12/20 07:09
[2020-05-12] MEDS: Bacitracin 1 PACKET TP ×2 (15:00→19:30)
[2020-05-12 15:14] VITALS: BP 98/71; PULSE 93; RESP 16; TEMP 36.1; O2SAT 99
[2020-05-12] MEDS: Pravastatin 40 MG TAB 80 MG PO (19:31)
[2020-05-12 22:43] VITALS: BP 106/70; PULSE 68; RESP 18; TEMP 36.4; O2SAT 98
[2020-05-13] MEDS: diphenhydrAMINE 25 MG CAP PO ×3 (03:10→17:48)
[2020-05-13] MEDS: LORazepam 1 MG TAB 2 MG PO ×4 (03:10→19:31)
[2020-05-13] MEDS: guanFACINE 1 MG TAB 2 MG PO ×2 (07:25→21:21)
[2020-05-13] MEDS: Bacitracin 1 PACKET TP ×3 (07:25→21:21)
[2020-05-13] MEDS: metFORMIN 500 MG TAB PO (07:25)
[2020-05-13] MEDS: FLUoxetine 10 MG TAB PO (07:25)
[2020-05-13] MEDS: Amoxicillin 875/Clav. 125 TAB PO ×2 (07:25→21:20)
[2020-05-13] MEDS: Acetaminophen 325 MG TAB 650 MG PO ×3 (07:25→19:31)
[2020-05-13] MEDS: FLUoxetine 20 MG CAP PO (07:25)
[2020-05-13 07:36] VITALS: BP 114/72; PULSE 94; RESP 19; TEMP 35.9; O2SAT 100
[2020-05-13] MEDS: OLANZapine 10 MG VIAL 7.5 MG IM (07:45)
[2020-05-13] MEDS: Diclofenac 1% Gel 100 GM TUBE TP ×3 (07:50→21:21)
[2020-05-13] MEDS: Water,Injection,Sterile 10 ML VIAL (07:51)
--- NOTE | 2020-05-13 08:49 | CMSP_ITS ---
- If Service Date Differs Date of service: 05/13/20 Time of Service: 14:33 Care Management Safety Plan Status: Voluntary VOLUNTARY FOR INPATIENT PSYCHIATRIC STABILIZATION. Lady is a 34 year old female who presented to the ED due to increased agitation and dangerous behaviors. Lady, who receives services through the IDDS Program at [facility], has an extensive psychiatric history. Per report, she has the potential to be impulsive, destructive and assaultive to staff. However, she has been at [facility] for four days and has been managing better than expected. She continues to bite herself and has begun punching the morgan, and banging her head against the wall. Per [facility] screenings, she continues to express SI and HI. ED RN Rebecca reports JESSICA and showering support regulation per Mihir Arredondo [facility]-IDDS ([phone]). She also appears to do very well with her own administrative support assoc present from the IDDS program. Referrals were made to [facility], [facility], and [facility]. [place], [facility], and [facility] Potential placement at [facility] noted by screener. Safety plan has been established with patient, and care team, to adhere to patient goals, identify restrictions based on behavioral status, address nu trition, and determine allowed personal belongings, tools for hygiene and personal care. Determine level of activity including ambulation, level of supervision, visitors, and determine privileges based on behaviors and level of engagement by pt. SAFETY PLAN: 1. Will remain on suicide precautions. In Paper Clothes 2. Will remain in room under direct supervision of one-on-one staff at all times provided by CPSO, CHAIRLIFT OPERATOR, COCONUT JELLY ROLLER secured entrance monitor. 3. May have paper cups, plates, finger foods as well as a metal spoon with which to eat meals. 4. Follow [facility] Management of the Admitted Behavioral Health Patient policy. 5. Shower permitted at RN discretion. 6. No personal belongings except items provided by staff such as stuffed cat at nursing discretion. 7. Visitors: Limited to [facility] IDDS Program staff. 8. Activities: Television and remote permitted, cards, coloring book, crayons, fan and other activities at nursing discretion. 9. Bathroom privileges: May use bathroom in room without supervision. 10. Phone: Hospital phone use at the discretion of nursing staff. 11. Due to VOLUNTARY status, if patient wishes to leave [facility], staff will contact [facility] Crisis Screener ([phone]) and On-Call Public Policy Manager ([phone]) as soon as possible. In the event of elopement, notify [facility] Police ([phone]). Patient is currently voluntarily at [facility] and seeking inpatient admission when a bed becomes available. [facility] Frontline Credit Collection Associate will continue seeking placement. Please contact the Broadcast Maintenance Technician Public Policy Manager ([phone]) and [facility] Credit Collection Associate ([phone]) for any needed changes in the Safety Plan. Safety plan has been provided to interdepartmental care team.
--- NOTE | 2020-05-13 08:49 | PDOC.CMSAFE ---
- If Service Date Differs Date of service: 05/13/20 Time of Service: 14:33 Care Management Safety Plan Status: Voluntary VOLUNTARY FOR INPATIENT PSYCHIATRIC STABILIZATION. Lady is a 34 year old female who presented to the ED due to increased agitation and dangerous behaviors. Lady, who receives services through the IDDS Program at [facility], has an extensive psychiatric history. Per report, she has the potential to be impulsive, destructive and assaultive to staff. However, she has been at [facility] days and has been managing better than expected. She continues to bite herself and has begun punching the morgan, and banging her head against the wall. Per [facility] screenings, she continues to express SI and HI. ED RN Rebecca reports JESSICA and showering support regulation per Mihir Arredondo [facility]-IDDS ([phone]). She also appears to do very well with her own product support representative present from the IDDS program. Referrals were made to [facility], [facility], and [facility]. [place], [facility], and [facility] Potential placement at [facility] noted by screener. Safety plan has been established with patient, and care team, to adhere to patient goals, identify restrictions based on behavioral status, address nutrition, and determine allowed personal belongings, tools for hygiene and personal care. Determine level of activity including ambulation, level of supervision, visitors, and determine privileges based on behaviors and level of engagement by pt. SAFETY PLAN: 1. Will remain on suicide precautions. In Paper Clothes 2. Will remain in room under direct supervision of one-on-one staff at all times provided by CPSO, SOFT TILE SETTER, POCKET AND PULLEY MACHINE OPERATOR legislative correspondent. 3. May have paper cups, plates, finger foods as well as a metal spoon with which to eat meals. 4. Follow [facility] Management of the Admitted Behavioral Health Patient policy. 5. Shower permitted at RN discretion. 6. No personal belongings except items provided by staff such as stuffed cat at nursing discretion. 7. Visitors: Limited to [facility] IDDS Program staff. 8. Activities: Television and remote permitted, cards, coloring book, crayons, fan and other activities at nursing discretion. 9. Bathroom privileges: May use bathroom in room without supervision. 10. Phone: Hospital phone use at the discretion of nursing staff. 11. Due to VOLUNTARY status, if patient wishes to leave [facility], staff will contact [facility] Crisis Screener ([phone]) and On-Call Pie Chef ([phone]) as soon as possible. In the event of elopement, notify [facility] Police ([phone]). Patient is currently voluntarily at [facility] and seeking inpatient admission when a bed becomes available. [facility] Frontline Visitor Services Specialist will continue seeking placement. Please contact the Microbiology Director Pie Chef ([phone]) and [facility] Visitor Services Specialist ([phone]) for any needed changes in the Safety Plan. Safety plan has been provided to interdepartmental care team.
[2020-05-13 10:29] LABS: Source Nasal/Nares
--- NOTE | 2020-05-13 10:32 | MHPN_ITS ---
Date of service: 05/10/20 Time of Service: 10:32 Mental Health Crisis Note Presenting Issue How did you arrive at the ED and why did you come: Pt arrived on 05.08.2020 after being evaluated by this clinician and her reporting she needs help. Pt has had difficulties with remaining safe over the past two weeks and her treatment team believed this was more around her MH needs and not her IDD needs. Precipitating Factors Pt is still endorsing suicidal thoughts. She denied HI and is not showing symptoms of delusions. Disposition BEHAVIOR: Pt is cooperative and engaged in treatment discussions. She reports she is struggling and her treatment team is tryingot get her moved upstairs where she can move around which will be helpful. EYE CONTACT: Pt struggles to make eye contact today. MOOD: Pt endorsed feeling depressed and suicidal. AFFECT: Pt's affect is flat and withdrawn. APPETITE: Pt enjoys eating and will eat as much as allowed. SLEEP(trouble falling/staying asleep: Pt reported that she is not sleeping well. Plan Pt is clearly still in distress and mentally unwell. She is still seeking a voluntary placement at this time and would like to be moved upstairs. There are no psychiatric beds available today. This clinician did speak with the floor care technician about Pt's needs and if possible and SARAH would like to see her moved upstairs where there is less stimuli for her to relax. This clinician updated her telephonic case manager and did a warm hand off with the oncoming ESC for the weekend so that the Pt is not confused about who will be seeing her this weekend. There was a huddle that happened without consult with her [facility] team and [facility] stated that unless she had the same people who were with her today that she could not have any supports over the weekend and would not be allowed upstairs. This clinician called another huddle once there to discuss this further. This clinician pointed out that this is a Pt who never sits still and keeping her isolated in a 6 by 6 room would not be in her best interest as at leas on the observation unit she would be able to appropriately pace. In addition this clinician also pointed out with the ER nurse that the people coming to see her are her supports not visitors in the traditional sense and assist her in using her coping skills and not acting out and she is initialed to them due to her disability. Signature Clinician's Name/Title: Shea Wright MS, [facility] Emergency Services Clinician, [facility]
--- NOTE | 2020-05-13 12:14 | MHPN_ITS ---
Date of service: 05/13/20 Time of Service: 12:15 Mental Health Crisis Note Presenting Issue How did you arrive at the ED and why did you come: Pt arrived on 05.08.2020 after being evaluated by this clinician and her reporting she needs help. Pt has had difficulties with remaining safe over the past two weeks and her treatment team believed this was more around her MH needs and not her IDD needs. Precipitating Factors Pt reported that she still wants to kill herself. She is not showing signs of delusions. Disposition BEHAVIOR: Pt appeared tired and unable to walk when she asked to go to the bathroom. This clinician observed her sliding off the bed and when she began to walk she stumbled back and forth banging into the wall and this clinician believes she would have fallen or hit her head had this clinician not grabbed for her arm. CPSO came in and assisted and reported that the Pt had had an injection earlier per the Pt's request as she was getting angry. This was not relayed to this clinician upon entering the room. Pt was assisted to the bathroom and then back ot her bed. Assessment in the afternoon showed Lady to be more alert and she reported not remembering this clinician being there this am. Pt was eating her dinner and it was learned that she had not been getting her at home meds by her nurse and he r eported that because her blood sugar levels were in the 200's she was restarted on those meds this morning. EYE CONTACT: Eye contact is poor as her eyes looked glossy. MOOD: Pt reported she is still having thoughts of wanting to kill herself. AFFECT: Affect is flat and glazed. APPETITE: Pt enjoys eating and will eat as much as she can. She was in less control of her food making it to her mouth this morning than typical for her and she forgot which half of the banana she had eaten already grabbing for the one she had just set down that was finished before grabbing the other half. In addition, she struggled to get the plastic wrap of the plate where her sandwich was requiring assistance. SLEEP(trouble falling/staying asleep: Pt reported that she did not sleep last night. Plan [facility] well as [facility]. None had availability today. Maureen did inquire about updated clinical so these were faxed. Pt still meets criteria for an inpatient treatment facility rather than a CARE Bed based on her increased behaviors even though some may have been brought on by her high glucose levels. Communication was had with Pt's treatment team members, NIKKY and Lauren Mendoza of [facility] for assistance in finding placement for Pt. Signature Clinician's Name/Title: Shae Wright MS, [facility] Emergency Services Clinician, [facility]
[2020-05-13 12:35] LABS: COVID-19 PCR Negative (Negative)
--- NOTE | 2020-05-13 13:44 | W.NUTRFU ---
Date of service: 05/13/20 Time of Service: 13:44 Nutritional Follow up NOTE: 34 year old female admitted with aggressive behavior. PMH: Developmental delay, DM. Home meds include metformin 500 mg BID. Following diabetic diet with adequate intake. Blood sugars well controlled. Not at nutritional risk. Time Spent in Nutritional Counseling and Treatment: 0
[2020-05-13 14:28] LABS: Abs Immature Grans 0.02 10^3/uL (0.0-0.06); Absolute Basophil Count 0.02 10^3/uL (0.0-0.2); Absolute Eosinophil Count 0.54 10^3/uL (0.0-0.7); Absolute Lymphocyte Count 1.69 10^3/uL (1.2-3.4); Absolute Monocyte Count 0.43 10^3/uL (0.1-0.8); Basophils % 0.3; Eosinophils % 9.3; HCT 41.2 % (36.0-46.0); HGB 13.6 g/dL (11.2-15.7); Immature Grans % 0.3; Lymphocytes % 29.1; MCH 30.9 pg (27.0-33.0); MCV 93.6 fL (80-95); MPV 9.8 fL (8.0-11.0); Monocytes % 7.4; Neutrophils % 53.6; Nucleated RBC 0 %; Platelet Count 248 10^3/uL (130-400); RDW 12.6 % (11.7-14.6); RDW-SD 43.8 fL
--- NOTE | 2020-05-13 15:35 | PDOC.CMPRO ---
Care Management Progress Note IDDS Staff Support SCHEDULE Wednesday05/13/20 Jeovany Mendoza 12:30-4:30 Rahul Rosenthal 4:30-9pm Nicolas Waggoner 9p-8:30am Wednesday05/14/20 Angela Sy 8:30-1 Tania Aguilera 1-4:30 Rahul Rosenthal 4:30-9pm Ed Quiñonez 9p-8:30a Wednesday05/15/20 Rudy Jackson 8:30-12:00 Gladys Tijerina 12:30-4:30 Deepak XXXXX ? 4:30-9P Ed Hydercia 9p-8:30a 05/16/20 Sanjanaankit Pro ? 8-12:30 Tania Aguilera 12:30-4:30 Deepak XXXXX ? 4:30-9P Ed Quiñonez 9p-8:30a Wednesday05/17/20 Rahul Rosenthal 4:30-9pm
--- NOTE | 2020-05-13 16:01 | W.PM.PROGNOT ---
Date of Service Date of service: 05/13/20 Time of Service: 16:02 Assessment and Plan Assessment and plan (1) Psychosis: Start date: 05/13/20 Start time: 16:07 Status: Acute Assessment and plan: Behavioral today. Hitting head against the wall requiring dosing of zyprexa IM and then started on PO daily, bit hand leaving open vanessa, cbc done, wbc normal. will monitor. Socks placed on hands to prevent further open vanessa. (2) Aggressive behavior: Start date: 05/13/20 Start time: 16:08 Status: Acute Assessment and plan: No outbursts today, see above, continue to monitor with caution. (3) Diabetes mellitus type 2, controlled: Start date: 05/13/20 Start time: 16:08 Status: Acute Assessment and plan: continue metformin and diabetes controlled diet. Increasing glucose level will restart victoza (4) Knee pain: Start date: 05/13/20 Start time: 16:09 Status: Acute Assessment and plan: Xray unremarkable. continue compression, ice as needed and voltaren gel (5) Bite wound: Start date: 05/13/20 Start time: 16:09 Status: Acute Assessment and plan: superficial wound treated with augmentin for prevention dose 5/10 will add bacitracin to wound as well to right hand as above above discussed with Dr. Mccall who is in agreement. Subjective Subjective Patient reports: other Interval history since last seen: Continues to have aggressive behavior. Bit herself this am leaving open areas to left hand, CBC done. no leukocytosis. Continue augmenting and monitor wounds. She was banging head against wall this am requiring an IM dose of zyprexa then complaining of dizziness. Requesting IV and CT scan. I explained she could likely have a concussion and having a concussion does not warrant an CT scan she could also be dizzy from zyprexa that she needed to rest. Will start po zyprexa. She wanted IM. I said no as she could not continue IM at psych facility. Also recommend socks be placed on her hands to prevent her from further biting herself and breaking her skin. She does have a 1:1 and guardian in her room however this is not helping aggressive behavior. Potential be at [facility]. Exam Narrative Exam Narrative: Const General: cooperative and no acute distress HENMT Mouth: moist mucous membranes Eyes Conjunctivae: normal conjunctivae Sclera: normal sclerae Neck Neck: supple Resp Auscultation: clear to auscultation bilaterally, no rales, no rhonchi and no wheezes Cardio Rate: regular rate and not tachycardic Rhythm: regular rhythm GI Palpation: soft, not firm, no guarding, no masses, not rigid and nontender Skin Trauma: burn frankie healing to right hand, with open fresh appearing bite vanessa to left hand Neuro General: patient alert, patient awake, patient oriented x3 and tone normal Extrem General: no edema Psych Appearance: grossly normal Mood: anxious mood Affect: animated Other: Patient notes she does not feel safe Objective Last Vital Signs Temp 35.9 C L 05/13/20 07:36 Pulse 94 H 05/13/20 07:36 Resp 19 05/13/20 07:36 BP 114/72 05/13/20 07:36 Pulse Ox 100 05/13/20 07:36 Laboratory Results - last 24 hr 05/13/20 05/13/20 10:04 14:15 WBC 5.80 RBC 4.40 Hgb 13.6 Hct 41.2 MCV 93.6 MCH 30.9 MCHC 33.0 RDW 12.6 Plt Count 248 MPV 9.8 Immature Gran % 0.3 Neutrophils % 53.6 Lymphocytes % 29.1 Monocytes % 7.4 Eosinophils % 9.3 Basophils % 0.3 Nucleated RBC % 0 Absolute Neutrophils 3.10 Absolute Lymphocytes 1.69 Absolute Monocytes 0.43 Absolute Eosinophils 0.54 Absolute Basophils 0.02 COVID-19 Source Nasal/nares SARS-CoV-2 (PCR) Negative
[2020-05-13 16:32] VITALS: BP 109/63; PULSE 75; TEMP 36.3; O2SAT 99
--- NOTE | 2020-05-13 17:03 | NUR.NOTE ---
william from [facility] told elly she needed to have one hot chocolate at breakfast one diet caffein soda and plenty of water and selser water once we get it from kitchen. thats for the day. Nursing Note: new rule she needs to stay behind black line on threshold between her room and hallway explained its a saftey factor as of today [facility] is staffing inside with patient in room
[2020-05-13] MEDS: metFORMIN 500 MG TAB 1000 MG PO (17:48)
--- NOTE | 2020-05-13 17:56 | NUR.NOTE ---
Nursing Note: i forgot to document patient is the one who put rails up on bed herself none of [facility] staff did it
[2020-05-13] MEDS: Pravastatin 40 MG TAB 80 MG PO (21:19)
[2020-05-13] MEDS: Melatonin 3 MG TAB PO (21:19)
[2020-05-13] MEDS: traZODone 100 MG TAB PO (21:19)
[2020-05-13] MEDS: ARIPiprazole 15 MG TAB PO (21:20)
--- NOTE | 2020-05-13 21:50 | NUR.NOTE ---
patient was informed she wouldnt get another fan after she purposly shot the one in there at floor and smashed itNursing Note:
[2020-05-14 00:30] VITALS: BP 107/71; PULSE 91; RESP 16; TEMP 36.1; O2SAT 97
[2020-05-14] MEDS: Acetaminophen 325 MG TAB 650 MG PO ×4 (00:33→20:36)
[2020-05-14] MEDS: diphenhydrAMINE 25 MG CAP PO ×4 (01:04→20:35)
[2020-05-14] MEDS: LORazepam 1 MG TAB 2 MG PO ×3 (04:47→20:35)
[2020-05-14 07:53] VITALS: BP 102/67; PULSE 96; RESP 17; TEMP 36.6; O2SAT 99
[2020-05-14] MEDS: guanFACINE 1 MG TAB 2 MG PO ×2 (08:04→20:34)
[2020-05-14] MEDS: FLUoxetine 20 MG CAP PO (08:04)
[2020-05-14] MEDS: metFORMIN 500 MG TAB 1000 MG PO ×2 (08:04→16:52)
[2020-05-14] MEDS: Amoxicillin 875/Clav. 125 TAB PO (08:04)
[2020-05-14] MEDS: FLUoxetine 10 MG TAB PO (08:05)
[2020-05-14] MEDS: Bacitracin 1 PACKET TP ×2 (08:05→20:36)
[2020-05-14] MEDS: Diclofenac 1% Gel 100 GM TUBE TP ×4 (08:05→20:36)
--- NOTE | 2020-05-14 10:22 | CMSP_ITS ---
- If Service Date Differs Date of service: 05/14/20 Time of Service: 10:23 Care Management Safety Plan Status: Voluntary VOLUNTARY FOR INPATIENT PSYCHIATRIC STABILIZATION. Lady is a 34 year old female who presented to the ED due to increased agitation and dangerous behaviors. Lady, who receives services through the IDDS Program at [facility], has an extensive psychiatric history. Per [facility] screenings, she continues to express SI and HI. ED RN Rebecca reports JESSICA and showering support regulation per Mihir Arredondo [facility]ID[facility] ([phone]). She also appears to do very well with her own administrative support specialist present from the IDDS program. Referrals were made to [facility], [facility], and [facility]. [facility] continues to coordinate placement; [place] and [facility] continue to follow; awaiting bed availability. Safety plan has been established with patient, and care team, to adhere to patient goals, identify restrictions based on behavioral status, address nutrition, and determine allowed personal belongings, tools for hygiene and personal care. Determine level of activity including ambulation, level of supervision, visitors, and determine privileges based on behaviors and level of engagement by pt. SAFETY PLAN: 1. Will remain on suicide precautions. In Paper Clothes 2. Will remain in room under direct supervision of one-on-one staff at all times provided by CPSO, BOX TOE STITCHER, JOB SUPERINTENDENT trucking contractor. 3. May have paper cups, plates, finger foods as well as a metal spoon with which to eat meals. 4. Follow [facility] Management of the Admitted Behavioral Health Patient policy. 5. Shower permitted at RN discretion. 6. No personal belongings except items provided by staff such as stuffed cat at nursing discretion. 7. Visitors: Limited to [facility] IDDS Program staff. Reclining chair permitted in r oom for IDDS staff. 8. Activities: Television and remote permitted, cards, coloring book, crayons, fan and other activities at nursing discretion. 9. Bathroom privileges: May use bathroom in room without supervision. 10. Phone: Hospital phone use at the discretion of nursing staff. 11. Due to VOLUNTARY status, if patient wishes to leave [facility], staff will contact [facility] Crisis Screener ([phone]) and On-Call Printing Shop Supervisor ([phone]) as soon as possible. In the event of elopement, notify [facility] Police ([phone]). Patient is currently voluntarily at [facility] and seeking inpatient admission when a bed becomes available. [facility] Frontline Gr[employer]ru 6 Visiting Teacher will continue seeking placement. Please contact the Freelance Writer Printing Shop Supervisor ([phone]) and [facility] [employer] Visiting Teacher ([phone]) for any needed changes in the Safety Plan. Safety plan has been provided to interdepartmental care team.
--- NOTE | 2020-05-14 10:22 | PDOC.CMSAFE ---
- If Service Date Differs Date of service: 05/14/20 Time of Service: 10:23 Care Management Safety Plan Status: Voluntary VOLUNTARY FOR INPATIENT PSYCHIATRIC STABILIZATION. Lady is a 34 year old female who presented to the ED due to increased agitation and dangerous behaviors. Lady, who receives services through the IDDS Program at [facility], has an extensive psychiatric history. Per [facility] screenings, she continues to express SI and HI. ED RN Rebecca reports JESSICA and showering support regulation per Mihir Arredondo [facility] ([phone]). She also appears to do very well with her own is support analyst present from the IDDS program. Referrals were made to [facility], [facility], and [facility]. [facility] continues to coordinate placement; [place] and [facility] continue to follow; awaiting bed availability. Safety plan has been established with patient, and care team, to adhere to patient goals, identify restrictions based on behavioral status, address nutrition, and determine allowed personal belongings, tools for hygiene and personal care. Determine level of activity including ambulation, level of supervision, visitors, and determine privileges based on behaviors and level of engagement by pt. SAFETY PLAN: 1. Will remain on suicide precautions. In Paper Clothes 2. Will remain in room under direct supervision of one-on-one staff at all times provided by CPSO, STAFF MINE WARFARE OFFICER, WET FINISHER WOOL mold making supervisor. 3. May have paper cups, plates, finger foods as well as a metal spoon with which to eat meals. 4. Follow [facility] Management of the Admitted Behavioral Health Patient policy. 5. Shower permitted at RN discretion. 6. No personal belongings except items provided by staff such as stuffed cat at nursing discretion. 7. Visitors: Limited to [facility] IDDS Program staff. Reclining chair permitted in room for IDDS staff. 8. Activities: Television and remote permitted, cards, coloring book, crayons, fan and other activities at nursing discretion. 9. Bathroom privileges: May use bathroom in room without supervision. 10. Phone: Hospital phone use at the discretion of nursing staff. 11. Due to VOLUNTARY status, if patient wishes to leave [facility], staff will contact [facility] Crisis Screener ([phone]) and On-Call Egg Candler ([phone]) as soon as possible. In the event of elopement, notify [facility] Police ([phone]). Patient is currently voluntarily at [facility] and seeking inpatient admission when a bed becomes available. [facility] Frontline Vending Machine Repairer will continue seeking placement. Please contact the [employer] Radio Operator Egg Candler ([phone]) and [facility] Vending Machine Repairer ([phone]) for any needed changes in the Safety Plan. Safety plan has been provided to interdepartmental care team.
--- NOTE | 2020-05-14 11:32 | TELEFU_ITS ---
Date of service: 05/14/20 Time of Service: 11:32 Nutritional Follow up NOTE: Loan Operations Manager spoke with Shae Wright, who has worked with Lady for many years. Shae reports that Lady gets upset stomach and/or diarrhea from excessive intakes of diet beverages, carrots and corn. Dietary informed. Will provide regular meal plan with up to 2 diet beverages daily. Lady appears to have a food sensitivity to corn and carrots- will omit from meal plan. Will continue to follow. Time Spent in Nutritional Counseling and Treatment: 10
--- NOTE | 2020-05-14 15:45 | W.PM.PROGNOT ---
Date of Service Date of service: 05/14/20 Time of Service: 15:45 Assessment and Plan Assessment and plan (1) Psychosis: Status: Acute Assessment and plan: Seems to be doing better since initiation of zyprexa. Await voluntary placement in a psychiatric facility. (2) Aggressive behavior: Status: Acute Assessment and plan: No outbursts today. Continue xyprexa. (3) Diabetes mellitus type 2, controlled: Status: Acute Assessment and plan: Continue metformin, victoza. (4) Knee pain: Status: Acute Assessment and plan: Likely contusion. Continue compression, ice, topical voltaren (5) Bite wound: Status: Acute Assessment and plan: Patient has been biting her hands. Encouraging to wear gloves/socks on hands to prevent this. Continue augmentin. Subjective Subjective Interval history since last seen: Patient is napping. I elected not to wake her up. Per my conversation with her CPSO, she did not have as many angry outbursts today. She took one nap prior to this, but has been easily arousable, ate all her meals, took a shower and has not been oversedated. Exam Narrative Exam Narrative: General: Sleeping female HEENT:eyes closed, face partially covered with blankets Heart: not auscultated Lungs: nonlabored breathing Abdomen: covered with blankets Extremities: covered with blankets Objective Last Vital Signs Temp 36.6 C 05/14/20 07:53 Pulse 96 H 05/14/20 07:53 Resp 17 05/14/20 07:53 BP 102/67 05/14/20 07:53 Pulse Ox 99 05/14/20 07:53
[2020-05-14 16:23] VITALS: BP 111/77; PULSE 74; RESP 18; TEMP 35.8; O2SAT 100
--- NOTE | 2020-05-14 17:17 | NUR.NOTE ---
Nursing Note: Shae from mental health would like pt to sleep without tv on to see if that helps her sleep better at night
--- NOTE | 2020-05-14 19:22 | NUR.NOTE ---
Pt got extremely agitated after phone call with her sister, she stated that she is angry because I couldn't facetime with my sister Pt started biting herself, throwing things and swearing. CPSO has shut the tv off until pt has calmed back down and is cooperative with staff.Nursing Note:
[2020-05-14] MEDS: Melatonin 3 MG TAB PO (20:34)
[2020-05-14] MEDS: traZODone 100 MG TAB PO (20:35)
[2020-05-14] MEDS: Pravastatin 40 MG TAB 80 MG PO (20:35)
[2020-05-14] MEDS: ARIPiprazole 15 MG TAB PO (20:35)
--- NOTE | 2020-05-14 21:02 | NUR.NOTE ---
Nursing Note: Pt gets very agitated and starts acting out, swearing, bitting self, throwing things on the floor whenever there is a shift change. Pt has called this cpso a bitch for not getting the sand operator when asked. Pt has also stated that she wants to kill herself.
[2020-05-14 21:54] VITALS: BP 105/73; PULSE 87; RESP 18; TEMP 36.5; O2SAT 100
[2020-05-15] MEDS: Acetaminophen 325 MG TAB 650 MG PO ×3 (03:13→15:19)
[2020-05-15 07:09] VITALS: BP 101/68; PULSE 112; RESP 19; TEMP 36.6; O2SAT 99
[2020-05-15] MEDS: Diclofenac 1% Gel 100 GM TUBE TP ×3 (08:32→20:20)
[2020-05-15] MEDS: FLUoxetine 10 MG TAB PO (08:33)
[2020-05-15] MEDS: Bacitracin 1 PACKET TP ×2 (08:33→20:21)
[2020-05-15] MEDS: guanFACINE 1 MG TAB 2 MG PO ×2 (08:33→20:21)
[2020-05-15] MEDS: FLUoxetine 20 MG CAP PO (08:34)
[2020-05-15] MEDS: metFORMIN 500 MG TAB 1000 MG PO ×2 (08:34→17:18)
--- NOTE | 2020-05-15 09:18 | NUR.NOTE ---
IDDS biomedical equipment support specialist worker encouraged patient to throw items on the floor to relieve anger. Nursing Note:
[2020-05-15] MEDS: LORazepam 1 MG TAB 2 MG PO ×2 (09:45→13:43)
[2020-05-15] MEDS: diphenhydrAMINE 25 MG CAP PO (10:41)
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
[2020-05-15] MEDS: Lidocaine 5% Patch 1 PATCH TP (15:18)
--- NOTE | 2020-05-15 15:37 | PHA.REVIEW ---
Pharmacy Admission Review - Admission Clinical Review (Last Reviewed 05/11/20 @ 10:58 by Silvana Patrick NP) Knee pain (Acute) Bite wound (Acute) Aggressive behavior (Acute) Diabetes mellitus type 2, controlled (Acute) Psychosis (Acute 10/04/14) sertraline Adverse Reaction (Intermediate, Verified 04/24/20 11:07) agitation Height 5 ft 4 in Weight 64.4 kg Aggressive behavior - Comments Comments/Follow Ups: Patient exhibiting some self harm, Hx of alcohol syndrome, psychosis. Seeks voluntary placement. Lidocaine patch and Diclofenac gel for L knee pain. Be sure to return Patient's own Victoza home with patient. Patient completed 5 day course of Augmentin for bites on hand. - Renal Dosing Renal Dosing: BUN 15 mg/dL (7-18) 05/09/20 13:15 Creatinine 0.5 mg/dL (0.55-1.02) L 05/09/20 13:15 Medications needing adjustments: Reviewed (CrCl~85ml/min) - Anticoagulation Anticoagulation: Hgb 13.6 g/dL (11.2-15.7) 05/13/20 14:15 Hct 41.2 % (36.0-46.0) 05/13/20 14:15 Plt Count 248 10^3/uL (130-400) 05/13/20 14:15 Creatinine 0.5 mg/dL (0.55-1.02) L 05/09/20 13:15 DVT Prohphylaxis: N/A - Relevant Labs Sodium 139 mmol/L (136-145) 05/09/20 13:15 Potassium 3.6 mmol/L (3.5-5.1) 05/09/20 13:15 Chloride 103 mmol/L (98-107) 05/09/20 13:15 Electrolytes, C-Reactive P, ESR: Reviewed (Toxicology screen negative) - DM Control DM Control: Glucose 121 mg/dL (74-106) H 05/09/20 13:15 Finger Stick Blood Glucose 173 Finger Stick Blood Glucose 173 Finger Stick Blood Glucose 173 Finger Stick Blood Glucose 218 Finger Stick Blood Glucose 218 Finger Stick Blood Glucose 218 Finger Stick Blood Glucose 218 Insulin Dosing: Reviewed (Metformin 1000mg po BID) - BP Control BP Control: Blood Pressure 101/68 If elevated: N/A - Home Meds Home Med List reviewed: Reviewed (Patient's own Liraglutide Sub-Q injection (Victoza)) Relevent Home Meds Not ordered & why?: Ibuprofen, Vit B complex
[2020-05-15 16:00] VITALS: BP 102/72; PULSE 101; RESP 18; TEMP 36.6; O2SAT 100
--- NOTE | 2020-05-15 17:01 | CMSP_ITS ---
- If Service Date Differs Date of service: 05/15/20 Time of Service: 17:09 Care Management Safety Plan Status: Voluntary VOLUNTARY FOR INPATIENT PSYCHIATRIC STABILIZATION. Lady is a 34 year old female who presented to the ED due to increased agitation and dangerous behaviors. Lady, who receives services through the IDDS Program at [facility], has an extensive psychiatric history. Per [facility] screenings, she continues to express SI and HI. JESSICA and showering support regulation per Mihir Arredondo [facility]-IDDS ([phone]). She also appears to do very well with her own production support engineer present from the IDDS program. Referrals were made to [facility], [facility], and [facility]. [facility] continues to coordinate placement; [place] and [facility] continue to follow; awaiting bed availability. Huddle with Lauren Thomas and Stefania Dubois RN, Shae [facility] and this marketing underwriter. Shae recommends not providing time limit expectations and utilizing hospital instead of more definitive disposition such as [place]. Christina reports patient tends to perseverate on expectations; Shae recommends broad statements be utilized. Lady appears to be motivated to go to psychiatric stabilization; Shae reports a bed is available but admission is currently being delayed due to Lady's presentation and current milieu at the facility. She recommends that when Lady begins to manipulate or self-harm that positive statements such as we want you to be able to go to the next hospital be utilized to motivate better behavior. Safety plan has been established with patient, and care team, to adhere to patient goals, identify restrictions based on behavioral status, address nutrition, and determine allowed personal belongings, tools for hygiene and personal care. Determine level of activity including ambulation, level of supervision, visitors, and determine privileges based on behaviors and level of engagement by pt. SAFETY PLAN: 1. Will remain on suicide precautions. In Paper Clothes. 2. Will remain in room under direct supervision of one-on-one staff at all times provided by CPSO, RECORD KEEPER, ELECTRICAL ASSEMBLER area forester. 3. May have paper cups, plates, finger foods as well as a metal spoon with which to eat meals. 4. Follow [facility] Management of the Admitted Behavioral Health Patient policy. 5. Shower permitted at RN discretion. 6. No personal belongings except items provided by staff such as stuffed cat at nursing discretion. 7. Visitors: Limited to [facility] IDDS Program staff. Reclining chair permitted in room for IDDS staff. 8. Activities: Television and remote permitted, cards, coloring book, crayons, fan and other activities at nursing discretion. Music tablet permitted for use of calming music when television is shut off at night; to promote better sleep- also at RN discretion. 9. Bathroom privileges: May use bathroom in room without supervision. 10. Phone: Hospital phone use at the discretion of nursing staff. 11. Due to VOLUNTARY status, if patient wishes to leave [facility], staff will contact [facility] Crisis Screener ([phone]) and On-Call Lens Maker ([phone]) as soon as possible. In the event of elopement, notify [facility] Police ). Patient is currently voluntarily at [facility] and seeking inpatient admission when a bed becomes available. [facility] Frontline Emerging Technologies Director will continue seeking placement. Please contact the Consumer Safety Officer Lens Maker ([phone]) and [facility] Emerging Technologies Director ([phone]) for any needed changes in the Safety Plan. Safety plan has been provided to interdepartmental care team.
--- NOTE | 2020-05-15 17:01 | PDOC.CMSAFE ---
- If Service Date Differs Date of service: 05/15/20 Time of Service: 17:09 Care Management Safety Plan Status: Voluntary VOLUNTARY FOR INPATIENT PSYCHIATRIC STABILIZATION. Lady is a 34 year old female who presented to the ED due to increased agitation and dangerous behaviors. Lady, who receives services through the IDDS Program at [facility], has an extensive psychiatric history. Per [facility] screenings, she continues to express SI and HI. JESSICA and showering support regulation per Mihir Arredondo [facility]-IDDS ([phone]). She also appears to do very well with her own applications support engineer present from the IDDS program. Referrals were made to [facility], [facility], and [facility]. [facility] continues to coordinate placement; [place] and [facility] continue to follow; awaiting bed availability. Huddle with Lauren Thomas and Stefania Dubois RN, Shae [facility] and this short story writer. Shae recommends not providing time limit expectations and utilizing hospital instead of more definitive disposition such as [place]. Christina reports patient tends to perseverate on expectations; Shae recommends broad statements be utilized. Lady appears to be motivated to go to psychiatric stabilization; Shae reports a bed is available but admission is currently being delayed due to Lady's presentation and current milieu at the facility. She recommends that when Lady begins to manipulate or self-harm that positive statements such as we want you to be able to go to the next hospital be utilized to motivate better behavior. Safety plan has been established with patient, and care team, to adhere to patient goals, identify restrictions based on behavioral status, address nutrition, and determine allowed personal belongings, tools for hygiene and personal care. Determine level of activity including ambulation, level of supervision, visitors, and determine privileges based on behaviors and level of engagement by pt. SAFETY PLAN: 1. Will remain on suicide precautions. In Paper Clothes. 2. Will remain in room under direct supervision of one-on-one staff at all times provided by CPSO, SYNTHETIC RESIN OPERATOR, CUE WORKER cut off saw operator metal. 3. May have paper cups, plates, finger foods as well as a metal spoon with which to eat meals. 4. Follow [facility] Management of the Admitted Behavioral Health Patient policy. 5. Shower permitted at RN discretion. 6. No personal belongings except items provided by staff such as stuffed cat at nursing discretion. 7. Visitors: Limited to [facility] IDDS Program staff. Reclining chair permitted in room for IDDS staff. 8. Activities: Television and remote permitted, cards, coloring book, crayons, fan and other activities at nursing discretion. Music tablet permitted for use of calming music when television is shut off at night; to promote better sleep-also at RN discretion. 9. Bathroom privileges: May use bathroom in room without supervision. 10. Phone: Hospital phone use at the discretion of nursing staff. 11. Due to VOLUNTARY status, if patient wishes to leave [facility], staff will contact [facility] Crisis Screener ([phone]) and On-Call Baby Stroller Rental Clerk ([phone]) as soon as possible. In the event of elopement, notify [facility] Police ([phone]). Patient is currently voluntarily at [facility] and seeking inpatient admission when a bed becomes available. [facility] Frontline Medical Referral Coordinator will continue seeking placement. Please contact the Reproduction Technician Baby Stroller Rental Clerk ([phone]) and [facility] Medical Referral Coordinator ([phone]) for any needed changes in the Safety Plan. Safety plan has been provided to interdepartmental care team.
[2020-05-15] MEDS: Melatonin 3 MG TAB PO (20:21)
[2020-05-15] MEDS: ARIPiprazole 15 MG TAB PO (20:21)
[2020-05-15] MEDS: traZODone 100 MG TAB PO (20:21)
[2020-05-15] MEDS: Pravastatin 40 MG TAB 80 MG PO (20:22)
[2020-05-16 07:24] VITALS: BP 108/77; PULSE 78; RESP 17; TEMP 36.3; O2SAT 98
[2020-05-16] MEDS: metFORMIN 500 MG TAB 1000 MG PO ×2 (08:03→16:55)
[2020-05-16] MEDS: Lidocaine 5% Patch 1 PATCH TP (08:03)
[2020-05-16] MEDS: FLUoxetine 10 MG TAB PO (08:03)
[2020-05-16] MEDS: FLUoxetine 20 MG CAP PO (08:03)
[2020-05-16] MEDS: LORazepam 1 MG TAB 2 MG PO ×3 (08:03→18:13)
[2020-05-16] MEDS: guanFACINE 1 MG TAB 2 MG PO ×2 (08:04→22:17)
[2020-05-16] MEDS: Bacitracin 1 PACKET TP ×3 (08:04→22:16)
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
[2020-05-16] MEDS: Acetaminophen 325 MG TAB 650 MG PO ×2 (11:08→18:13)
[2020-05-16] MEDS: diphenhydrAMINE 25 MG CAP PO (14:42)
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
--- NOTE | 2020-05-16 16:30 | CMSP_ITS ---
- If Service Date Differs Date of service: 05/16/20 Time of Service: 16:37 Care Management Safety Plan Status: Voluntary VOLUNTARY FOR INPATIENT PSYCHIATRIC STABILIZATION. Lady is a 34 year old female who presented to the ED due to increased agitation and dangerous behaviors. Lady, who receives services through the IDDS Program at [facility], has an extensive psychiatric history. Per [facility] screenings, she continues to express SI and HI. JESSICA and showering support regulation per Mihir Arredondo [facility]-IDDS ([phone]). She also appears to do very well with her own business support professional present from the IDDS program. Referrals were made to [facility], [facility], and [facility]. [facility] continues to coordinate placement; [facility] and [facility] continue to follow; awaiting bed availability. Huddle with Shae Limon [facility] QMHP. Shae reported increases in behavior noted this morning which resulted in losing the option of discharge to [facility] crisis bed. Mihir reported to this telegraphic typewriter mechanic that [facility] crisis bed coordination is taking place through the State; Shae reports she will attempt to coordinate AM huddle with Mihir present to discuss current limitations re: disposition and treatment planning. CM raised concerns re: statements that IDDS staff that know Lady best anticipate increases in behavioral presentation the longer she remains at [facility]; therefore it is logical that after eight days that her behavior is increasing yet it is being noted to be a barrier to securing a bed. Maureen reports the milieu can not currently support Lady's needs. CM to request [facility] or [facility] psych consult to review medication regime with possible recommendations and determine appropriate level of care. Safety plan has been established with patient, and care team, to adhere to patient goals, identify restrictions based on behavioral status, address nutrition, and determine allowed personal belongings, tools for hygiene and personal care. Determine level of activity including ambulation, level of supervision, visitors, and determine privileges based on behaviors and level of engagement by pt. SAFETY PLAN: 1. Will remain on suicide precautions. In Paper Clothes. 2. Will remain in room under direct supervision of one-on-one staff at all times provided by CPSO, SHIPPING WEIGHER, COMPONENT ASSEMBLER paraeducator. 3. May have paper cups, plates, finger foods as well as a metal spoon with which to eat meals. 4. Follow [facility] Management of the Admitted Behavioral Health Patient policy. 5. Shower permitted at RN discretion. 6. No personal belongings except items provided by staff such as stuffed cat at nursing discretion. 7. Visitors: Limited to [facility] IDDS Program staff. Reclining chair permitted in room for IDDS staff. 8. Activities: Television and remote permitted, cards, coloring book, crayons, fan and other activities at nursing discretion. Music tablet permitted for use of calming music when television is shut off at night; to promote better sleep- also at RN discretion. 9. Bathroom privileges: May use bathroom in room without supervision. 10. Phone: Hospital phone use at the discretion of nursing staff. 11. Due to VOLUNTARY status, if patient wishes to leave [facility], staff will contact [facility] Crisis Screener ([phone]) and On-Call Care Attendant ([phone]) as soon as possible. In the event of elopement, notify [facility] Police ([phone]). Patient is currently voluntarily at [facility] and seeking inpatient admission when a bed becomes available. [facility] Frontline Men'S Custom Hair Piece Consultant will continue seeking placement. Please contact the Fish Butcher Care Attendant ([phone]) and [facility] Men'S Custom Hair Piece Consultant ([phone]) for any needed changes in the Safety Plan. Safety plan has been provided to interdepartmental care team.
--- NOTE | 2020-05-16 16:30 | PDOC.CMSAFE ---
- If Service Date Differs Date of service: 05/16/20 Time of Service: 16:37 Care Management Safety Plan Status: Voluntary VOLUNTARY FOR INPATIENT PSYCHIATRIC STABILIZATION. Lady is a 34 year old female who presented to the ED due to increased agitation and dangerous behaviors. Lady, who receives services through the IDDS Program at [facility], has an extensive psychiatric history. Per [facility] screenings, she continues to express SI and HI. JESSICA and showering support regulation per Mihir Arredondo [facility]-IDDS ([phone]). She also appears to do very well with her own director decision support present from the IDDS program. Referrals were made to [facility], [facility], and [facility]. [facility] continues to coordinate placement; [facility] continue to follow; awaiting bed availability. Huddle with Shae Limon [facility] QMHP. Shae reported increases in behavior noted this morning which resulted in losing the option of discharge to [facility] crisis bed. Mihir reported to this automobile service writer that [facility] crisis bed coordination is taking place through the State; Shae reports she will attempt to coordinate AM huddle with Mihir present to discuss current limitations re: disposition and treatment planning. CM raised concerns re: statements that IDDS staff that know Lady best anticipate increases in behavioral presentation the longer she remains at [facility]; therefore it is logical that after eight days that her behavior is increasing yet it is being noted to be a barrier to securing a bed. Maureen reports the milieu can not currently support Lady's needs. CM to request [facility] or [facility] psych consult to review medication regime with possible recommendations and determine appropriate level of care. Safety plan has been established with patient, and care team, to adhere to patient goals, identify restrictions based on behavioral status, address nutrition, and determine allowed personal belongings, tools for hygiene and personal care. Determine level of activity including ambulation, level of supervision, visitors, and determine privileges based on behaviors and level of engagement by pt. SAFETY PLAN: 1. Will remain on suicide precautions. In Paper Clothes. 2. Will remain in room under direct supervision of one-on-one staff at all times provided by CPSO, RACING BOARD MARKER, TOBACCO FARMWORKER car shakeout operator. 3. May have paper cups, plates, finger foods as well as a metal spoon with which to eat meals. 4. Follow [facility] Management of the Admitted Behavioral Health Patient policy. 5. Shower permitted at RN discretion. 6. No personal belongings except items provided by staff such as stuffed cat at nursing discretion. 7. Visitors: Limited to [facility] IDDS Program staff. Reclining chair permitted in room for IDDS staff. 8. Activities: Television and remote permitted, cards, coloring book, crayons, fan and other activities at nursing discretion. Music tablet permitted for use of calming music when television is shut off at night; to promote better sleep-also at RN discretion. 9. Bathroom privileges: May use bathroom in room without supervision. 10. Phone: Hospital phone use at the discretion of nursing staff. 11. Due to VOLUNTARY status, if patient wishes to leave [facility], staff will contact [facility] Crisis Screener ([phone]) and On-Call Receiving Associate ([phone]) as soon as possible. In the event of elopement, notify [facility] Police ([phone]). Patient is currently voluntarily at [facility] and seeking inpatient admission when a bed becomes available. [facility] Frontline Gluing Machine Operator Automatic will continue seeking placement. Please contact the Rotary Drier Operator Receiving Associate ([phone]) and [facility] Gluing Machine Operator Automatic ([phone]) for any needed changes in the Safety Plan. Safety plan has been provided to interdepartmental care team.
[2020-05-16] MEDS: Diclofenac 1% Gel 100 GM TUBE TP ×2 (16:55→22:17)
[2020-05-16] MEDS: ARIPiprazole 15 MG TAB PO (22:16)
[2020-05-16] MEDS: traZODone 100 MG TAB PO (22:16)
[2020-05-16] MEDS: Melatonin 3 MG TAB PO (22:16)
[2020-05-16] MEDS: Pravastatin 40 MG TAB 80 MG PO (22:16)
[2020-05-16 22:33] VITALS: BP 102/70; PULSE 89; RESP 18; TEMP 36.5; O2SAT 98
[2020-05-17 06:09] VITALS: BP 90/56; PULSE 92; RESP 18; TEMP 36; O2SAT 100
[2020-05-17] MEDS: Acetaminophen 325 MG TAB 650 MG PO ×2 (06:16→12:36)
[2020-05-17 08:00] VITALS: BP 101/68; PULSE 74; RESP 17; TEMP 36.1; O2SAT 100
[2020-05-17] MEDS: Lidocaine 5% Patch 1 PATCH TP (08:54)
[2020-05-17] MEDS: Diclofenac 1% Gel 100 GM TUBE TP ×3 (08:54→15:23)
[2020-05-17] MEDS: guanFACINE 1 MG TAB 2 MG PO (08:55)
[2020-05-17] MEDS: FLUoxetine 10 MG TAB PO (08:56)
[2020-05-17] MEDS: FLUoxetine 20 MG CAP PO (08:56)
[2020-05-17] MEDS: metFORMIN 500 MG TAB 1000 MG PO ×2 (08:56→16:59)
[2020-05-17] MEDS: Bacitracin 1 PACKET TP ×2 (08:56→14:12)
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
--- NOTE | 2020-05-17 13:32 | MHPN_ITS ---
Date of service: 05/17/20 Time of Service: 13:32 Mental Health Crisis Note Presenting Issue How did you arrive at the ED and why did you come: Pt arrived on 05.08.2020 after an evaluation by this clinician and agreement to a voluntary admission in a psychiatric facility. Precipitating Factors Pt denied SI and HI today. She is not showing signs of delusions. Disposition BEHAVIOR: Pt has had no behaviors since yesterday afternoon. She has been appropriate enough to earn her TV privileges back. THis afternoon Pt refused voluntary admission. EYE CONTACT: Good eye contact MOOD: Happier more stable mood. AFFECT: Affect is normal APPETITE: Pt loves to eat and is eating well. SLEEP(trouble falling/staying asleep: Pt reported she had slept through the night. Plan This clinician and Mihir Arredondo Medical Supply Technician for Pt through [facility] had a huddle with [facility] staff this am at 10am. We were to continue 1 on 1 supports from [facility] as well as a CPSO through weekend and then look to just having CPSO. This clinician was asked to look for placement out of state due to not being able to find placement in state. This had to be cleared through Pt's guardian. Guardian had thought that she could not sign for voluntary placement however, Pt was discharged before guardian learned that she could actually do this. phlebotomy program coordinator pick client up and will find placement for Pt until other arrangements can be made. Signature Clinician's Name/Title: Shae Wright MS, [facility] Emergency Services Clinician, [facility]
[2020-05-17] MEDS: LORazepam 1 MG TAB 2 MG PO (15:22)
[2020-05-17] MEDS: diphenhydrAMINE 25 MG CAP PO (15:22)
--- NOTE | 2020-05-17 15:39 | PDOC.CMDIS ---
LACE Index Scoring Tool - Questions: Length of Stay (in days): 7 - 13 Acuity (Admit via E.D.?): Yes Comorbidities: Diabetes w/o Complication E.D. Visits: 2 - Answers: Total Score: 11 Risk of Readmission: High Risk Care Management Discharge Reason for Hospitalization: Aggressive Behavior Discharge Plan: Lady will be discharged back to the care of her [facility] team. Per Shae; [facility], Lady's guardian Emmie reports inability to admit Lady to psychiatric bed without her consent. Shae reports Lady does not currently meet involuntary status. She has been at [facility] for eight days, and no facilities have been willing to accept her for treatment. [facility] is working on [facility] crisis bed placement, though Lady is not aggreeable. Shae reports [facility] will no longer be seeking hospitalization; therefore Lady will be discharged back to the care of her IDDS team and resume prior supports. - MH Services (Omit if N/A) Current MH Services: Internal [facility] ([facility])
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
[2020-05-17] MEDS: diazePAM 5 MG TAB PO (16:59)
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
[2020-05-19 06:43] LABS: Abs Immature Grans 0.01 10^3/uL (0.0-0.06); Absolute Basophil Count 0.03 10^3/uL (0.0-0.2); Absolute Eosinophil Count 0.55 10^3/uL (0.0-0.7); Absolute Lymphocyte Count 1.24 10^3/uL (1.2-3.4); Absolute Monocyte Count 0.25 10^3/uL (0.1-0.8); Absolute Neutrophil Count 1.81 10^3/uL (1.2-6.7); Basophils % 0.8; Eosinophils % 14.1; HCT 37.4 % (36.0-46.0); HGB 11.9 g/dL (11.2-15.7); Immature Grans % 0.3; Lymphocytes % 31.9; MCH 30.9 pg (27.0-33.0); MCHC 31.8 % (32.0-36.0); MPV 9.5 fL (8.0-11.0); Monocytes % 6.4; Neutrophils % 46.5; Nucleated RBC 0 %; Platelet Count 217 10^3/uL (130-400); RBC 3.85 10^6/uL (3.93-5.22); RDW 12.4 % (11.7-14.6); RDW-SD 44.1 fL; WBC 3.89 10^3/uL (4.4-10.8)
[2020-05-19 06:45] LABS: MCV 97.1 fL (80-95)
[2020-05-19 06:58] LABS: ALT 14 U/L (14-59); AST 11 U/L (15-37); Albumin 2.9 g/dL (3.4-5.0); Alkaline Phosphatase 46 U/L (46-116); Anion Gap 6.5 mmol/L (3-11); BUN 11 mg/dL (7-18); Bilirubin, Total 0.2 mg/dL (0.2-1.0); CO2 25.5 mmol/L (21.0-32.0); CREATININE 0.5 mg/dL (0.55-1.02); Calcium 7.9 mg/dL (8.5-10.1); Chloride 110 mmol/L (98-107); Glucose 171 mg/dL (74-106); Potassium 4.1 mmol/L (3.5-5.1); Sodium 142 mmol/L (136-145); Total Protein 5.9 g/dL (6.4-8.2)
--- NOTE | 2020-05-29 15:04 | PDOC.MHCN ---
Date of service: 05/09/20 Time of Service: 15:04 Mental Health Crisis Note Presenting Issue How did you arrive at the ED and why did you come: PT arrived to the ER today following an assessment by this clinician. She is having SI thoughts and aggressive behaviors. Precipitating Factors Pt reported she is having Suicidal thoughts. Disposition BEHAVIOR: Pt is cooperative with this clinician in answering questions. She endorses feeling depressed and is not making safe choices. She can and has been impulsive to her supports, self and property. EYE CONTACT: Eye contact is good MOOD: Depressed AFFECT: tearful APPETITE: Good appettie SLEEP(trouble falling/staying asleep: Poor Plan Pt agrees that she needs help now and possibly a medication adjustment. She is willing to go to [facility] to be medically cleared and is seeking a voluntary psychiatric admission. Although the behaviors witnessed over the last two weeks have not been abnormal for her to do with the exception of the defecating and urinating on the floor, it is not typical for those behaviors to be this intense or ongoing as long as they have been. Because of this the Pt's team believe that her current state is not typical nor for her to be this unmanageable for the extended amount of time where she is not able to be redirected. Referrals have been sent to [facility], [facility] and [facility]. Spoke with care management this evening and requested some cards and if possible a shower as the Pt utilizes these things to feel better. circuit manager will get some cards and advocate for a shower. Call backs to the potential hospitals found none tonight but a possibility for tomorrow. Signature Clinician's Name/Title: Shae Wright MS, [facility] Emergency Services Clinician, [facility]
--- NOTE | 2020-05-29 16:14 | W.INMHPGNOTE ---
Date of service: 05/10/20 Time of Service: 16:14 Mental Health Crisis Note Presenting Issue How did you arrive at the ED and why did you come: PT arrived to the ER 3 following an assessment by this clinician. She is having SI thoughts and aggressive behaviors. Precipitating Factors Pt is having current SI and No HI. She is having thoughts to harm others on her team and her niece. Disposition BEHAVIOR: Pt presents as hyper today seeking the end result before the assessment can be completed. She is remorseful for her actions that brought her to the hospital. EYE CONTACT: Good MOOD: depressed and anxious AFFECT: flat and tearful APPETITE: Good SLEEP(trouble falling/staying asleep: Poor not able to sleep. Plan Pt agrees that she needs help now and possibly a medication adjustment. She is willing to go to [facility] to be medically cleared and is seeking a voluntary psychiatric admission. Although the behaviors witnessed over the last two weeks have not been abnormal for her to do with the exception of the defecating and urinating on the floor, it is not typical for those behaviors to be this intense or ongoing as long as they have been. Because of this the Pt's team believe that her current state is not typical nor for her to be this unmanageable for the extended amount of time where she is not able to be redirected. Referrals have been sent to [facility], [facility] and [facility]. Spoke with care management this evening and requested some cards and if possible a shower as the Pt utilizes these things to feel better. it disaster recovery manager will get some cards and advocate for a shower. Call backs to the potential hospitals found none tonight but a possibility for tomorrow. Signature Clinician's Name/Title: Shae Wright MS, [facility] ESC, [facility]
--- NOTE | 2020-06-03 14:04 | PDOC.MHCN ---
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 She is voluntary and seeking admission. Precipitating Factors Pt is having current SI and No HI. She is having thoughts to harm others on her team and her niece. Disposition BEHAVIOR: Pt presents as calmer today and could be because she got to take a shower which is a good coping tool for her. This morning she was unable ot sit still and was pacing and sitting, then standing then sitting again repeatitively. EYE CONTACT: good MOOD: Depressed AFFECT: tearful APPETITE: good SLEEP(trouble falling/staying asleep: poor Plan Pt is clearly still in distress and mentally unwell. She is still seeking a voluntary placement at this time and would like to be moved upstairs. There are no psychiatric beds available today. This clinician did speak with the customer care manager about Pt's needs and if possible and SARAH would like to see her moved upstairs where there is less stimuli for her to relax. This clinician updated her family independence case manager and did a warm hand off with the oncoming ESC for the weekend so that the Pt is not confused about who will be seeing her this weekend. Pt has a known history and even more recent of aggressive behaviors yet has been able to manage those well while in the hospital. It is however, this clinician's professional opinion that Pt's needs would be better served in a hospital setting vs a lesser restricted setting because of her history to not manage well when she is in immediate crisis and can act impulsively. Signature Clinician's Name/Title: Shae Wright MS, [facility] Emergency Services Clinician
--- NOTE | 2020-06-03 14:11 | PDOC.MHCN ---
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 She is voluntary and seeking admission. Precipitating Factors Pt is having current SI and No HI. Disposition BEHAVIOR: Pt was highly sedated when this clinician arrived this am. She was observed not acting herself and initially it was thought that it could be because she had just woken up however, when she said she had to go to the bathroom she was observed staggering and bumped into the wall. This clinician had to grab her by the arm to steady her and walk her to the bathroom. It was this time that the CPSO informed this clinician she had gotten medications (zyprexa, Benadryl and ativan) because she stated she was getting agitated. Later it was learned that she had gotten an oral Zyprexa as well as an IM. Later in the afternoon it was learned that PT's at home medications were just restarted today because her sugar was well over 200's. This clinician observed Pt eating and Pt's reports of eating carbs during most meals and her not getting her insulin was a concern that was brought to the treatment team's attention at [facility] as the Pt's sugars also affect her moods. EYE CONTACT: poor MOOD: Sleepy and unable to engage. AFFECT: sleepy APPETITE: eating SLEEP(trouble falling/staying asleep: unknown Plan This clinician called [facility] and [facility] as well as [facility]. None had availability today. Maureen did inquire about updated clinical so these were faxed. Pt still meets criteria for an inpatient treatment facility rather than a CARE Bed based on her increased behaviors even though some may have been brought on by her high glucose levels. Communication was had with Pt's treatment team members, [facility] and Lauren Mendoza of [facility] for assistance in finding placement for Pt. Signature Clinician's Name/Title: Shae Wright, MS, [facility] Emergency Services Clinician, [facility]
--- NOTE | 2020-06-03 14:25 | MHPN_ITS ---
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 She is voluntary and seeking admission. Precipitating Factors Pt reported she is still having SI she denied HI. Disposition BEHAVIOR: Pt reported a rough night calling her nurse bad names and almost hit her CPSO. But no behaviors outside of one incident of biting earlier. Improved day. EYE CONTACT: good MOOD: improved happier. AFFECT: normal APPETITE: Pt loves to eat. SLEEP(trouble falling/staying asleep: poor sleep. Plan Pt is doing much better today and if she continues to do better we may be able to look at a potential crises bed referral as well as hospital placement. This clinician would like to see her be able to be stable on her at home medications and see improved behaviors (i.e. violently hitting her head on the wall, punching the wall, biting herself so hard she breaks the skin) as a result. Pt will remain at [facility] until such time as we see improved symptoms. She will continue to have 24/7support staff provided by [facility] at [facility]'s request as well as a CPSO provided by [facility]. Signature Clinician's Name/Title: Shae Wright MS, [facility] Emergency Services Clinician, [facility]
--- NOTE | 2020-06-03 14:35 | MHPN_ITS ---
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 She is voluntary and seeking admission. Precipitating Factors Pt reported she is still having SI she denied HI. Disposition BEHAVIOR: Pt is focusing a lot on her knee that she injured slipping on the ice. She is redirected as she will perseverance on any medical devices she can get. Described ot have escalated behaviours when she knows there is going to be a shift change. EYE CONTACT: Good MOOD: depressed AFFECT: angry when talking about a lesser restrictive means to treatment. APPETITE: good SLEEP(trouble falling/staying asleep: Reported she woke from a bad dream last night. Plan Pt still meet the need for an intensive treatment to be reevaluated and have her medications reviewed and changed if appropriate. Pt will remain at [facility] pending admission. In the meantime [facility] will assess her twice daily by ES and she will continue with 14/09 [facility] supports as well as CPSO provided by [facility]. All hospitals were called today and no beds were available. This clinician will attempt to approach a crisis bed referral again tomorrow. This clinician would like for the CARE Bed clinical team lead to meet with the Pt to discuss what it looks like to have an admission there vs an IDDS one. This clinician communicated and strategized other potential plans with the residential case manager, Mihir Arredondo. Signature Clinician's Name/Title: Shae Wright MS, [facility] Emergency Services Clinician, [facility]
--- NOTE | 2020-06-03 14:42 | W.INMHPGNOTE ---
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 She is voluntary and seeking admission. Precipitating Factors Pt currently denying SI and HI. She did report she had some earlier this am but not anymore. Disposition BEHAVIOR: No behaviours noted this am and then it was reported that she was tearing off her clothes. Pt was displaying behaviors as intensly as sh has in the past but they are still present. EYE CONTACT: good MOOD: happy AFFECT: smiling APPETITE: Loves to eat SLEEP(trouble falling/staying asleep: slept well Plan It is this clinician?s professional opinion, despite effort put forth by her team at [facility] and [facility], that this Pt is not in a place where she is making safe and rational choices. Therefore, this clinician believes that this Pt would not benefit from a CARE Bed referral. Her watch case polisher for [facility] has stated that there may be a bed available at [facility] and is looking at that as an option. By the afternoon when we learned of continued biting, ripping clothes and verbal aggression the CARE Bed no longer was an option therefore only hospital placements will be sought. Staff and CPSO to be more direct and rigged with expectations and privileges will be removed if Pt cannot control her behaviors. [facility] will continue to seek placement. Signature Clinician's Name/Title: Shae Wright MS, [facility] Emergency Services Clinician, [facility]
--- NOTE | 2020-06-03 14:55 | MHPN_ITS ---
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 She is voluntary and seeking admission. Precipitating Factors Pt denied current ideation Disposition BEHAVIOR: Pt had a better day over all. She is still wanting placement but that changed late afternoon as there was some confusion around what the guardian could do or not do. EYE CONTACT: good MOOD: happier AFFECT: normal APPETITE: Pt loves sto eat. SLEEP(trouble falling/staying asleep: Better sleep last night. Plan Pt was not wanting to stay at [facility] therefore left with her workforce services representative to return to the crisis bed. Pt's team were informed that because the Pt's most recent behaviors have not been imminent enough this clinician could not write an Emergency Exam and her behaviors from a week and a half ago are too far past to write one. Explained that if she does not agree to go back to the ER for assessment she will need to go to the crisis bed and if she becomes unsafe again we will emergency services will re-evaluate her and look for placement. [facility] to put two on one staff for Pt through weekend and try to manage safety. [facility] will continue to seek placement at [facility] in 10 days. Signature Clinician's Name/Title: Shae Wright MS, [facility] Emergency Services Clinician, [facility]
--- NOTE | 2020-06-03 15:04 | MHPN_ITS ---
Date of service: 05/20/20 Time of Service: 15:04 Mental Health Crisis Note Presenting Issue How did you arrive at the ED and why did you come: Pt is being seen today for a follow up assessment as she waits for a psychiatric hospital placement. Pt has been at [facility] since 05.18.2020. Disposition BEHAVIOR: Reporting she had a good day. She is engaged and interacting in the assessment. She is angry with herself for the decision she made to get her back to [facility]. EYE CONTACT: good MOOD: Reported she is anxious AFFECT: tearful APPETITE: good SLEEP(trouble falling/staying asleep: reported she slept okay. Plan Pt is still needing a higher level of care in a more secured environment. She is voluntarily willing to accept treatment. Pt will be supported by her [facility] and [facility] supports and will be reminded to use her coping skills of breathing and using my voice when she is feeling overwhelmed by her thoughts or emotions to appropriately and safely work through them. [facility] will continue to assess daily until placement is found. No psychiatric beds available this am at [facility], [facility], [facility] or [facility]. New Referrals were sent to [facility]. This clinician started a plan of warning signs, coping skills and things to avoid with Pt while she is at [facility] to try to keep negative responses minimalized. Signature Clinician's Name/Title: Shae Wright MS, [facility] Emergency Services Clinician, [facility]
--- NOTE | 2020-06-03 15:08 | W.INMHPGNOTE ---
Date of service: 05/21/20 Time of Service: 15:08 Mental Health Crisis Note Presenting Issue How did you arrive at the ED and why did you come: Pt is being seen today for a follow up assessment as she waits for a psychiatric hospital placement. Pt has been at [facility] since 05.18.2020. Precipitating Factors Pt endorsed SI today and denied she denied HI. Disposition BEHAVIOR: Cooperative and engaged in assessment. Pt is using her coping skills today to get through what she is experiencing. She is using the face scale for pain on the wall to help identify where she is at emotionally. EYE CONTACT: good MOOD: reported she is feeling anxious. AFFECT: Normal APPETITE: good SLEEP(trouble falling/staying asleep: Not assessed Plan Based Pt's history and her self-reported current ideation and plan this clinician's professional opinion is that she still meets criteria for an inpatient stay to assess her medications and behaviors relating to her current disposition. Pt's inbound customer service representative will arrange for Pt's zoom visit with Dr. Merchant tomorrow at 11am. He will send this invite to Lillian Sheppard when ready. Pt will not have a [facility] support tonight as she is not comfortable with the C Pap machine. If all goes well we will continue with this treatment and if not [facility] staff will be put back in place for over nights. Signature Clinician's Name/Title: Shae Wright MS, [facility] Emergency Services Clinician, [facility]
--- NOTE | 2020-06-03 15:13 | MHPN_ITS ---
Date of service: 05/22/20 Time of Service: 15:13 Mental Health Crisis Note Presenting Issue How did you arrive at the ED and why did you come: Pt is being seen today for a follow up assessment as she waits for a psychiatric hospital placement. Pt has been at [facility] since 05.18.2020. Precipitating Factors Pt endorsed SI today I don't want to be here anymore. Disposition BEHAVIOR: Pt admits to some behaviours this morning when her CPSO went to get breakfast. During the afternoon huddle it was reported that she had ongoing struggles through the day of banging her hand, and forehead. She hit her hand so hard that she required an x-ray. Pt not awake during the afternoon huddle due to medications she got to chemically sedate her from continuing to harm herself. It was reported that Dr. Mueller requested that she be started back on her home medications today and that the hospital d/c the valium. EYE CONTACT: good MOOD: anxious. AFFECT: tearful APPETITE: Pt loves to eat SLEEP(trouble falling/staying asleep: Good. Plan This clinician will research and print of the faces and bring tomorrow just in case they still are not there. Pt's director of medical staff services was updated of the information and all hospitals called had no beds available. It is this clinician?s professional opinion that the only safe place for Pt at this time is in a secure environment where she can get a new comprehensive evaluation and her medications can be looked at and adjusted accordingly. Signature Clinician's Name/Title: Shae Wright MS, [facility] Emergency Services Clinician, [facility]
--- NOTE | 2020-06-03 15:20 | W.INMHPGNOTE ---
Date of service: 05/23/20 Time of Service: 15:21 Mental Health Crisis Note Presenting Issue How did you arrive at the ED and why did you come: Pt is being seen today for a follow up assessment as she waits for a psychiatric hospital placement. Pt has been at [facility] since 05.18.2020. Precipitating Factors Pt endorses SI today no HI. Disposition BEHAVIOR: Pt presents to be having possible hallucinations of dots on the wall and she worries that her aunt is going to come through to hurt hre again. She is non stop pacing. She throws a karine ball at the wall in an attempt to work out some of her anger as well. EYE CONTACT: Poor she is looking at the ceiling which is a sign she is having some psychosis. MOOD: Anxious and angry AFFECT: worried APPETITE: Pt enjoys eating SLEEP(trouble falling/staying asleep: good Plan Pt's director of food and beverage services was updated of the information and all hospitals called had no beds available. It is this clinician?s professional opinion that the only safe place for Pt at this time is in a secure environment where she can get a new comprehensive evaluation and her medications can be looked at and adjusted accordingly. This clinician was unable to assess for lesser restrictive alternatives because she presents as being in a psychotic state today and is very impulsive and physically aggressive to herself when she is being asked to consider other options. The hospital attire requirements were reviewed with the client. She was given a cloth one which will make it more difficult for her to rip off. Signature Clinician's Name/Title: Shae Wright MS, [facility] Emergency Services Clinician, [facility]
--- NOTE | 2020-06-03 15:29 | W.INMHPGNOTE ---
Date of service: 05/24/20 Time of Service: 15:29 Mental Health Crisis Note Presenting Issue How did you arrive at the ED and why did you come: Pt is being seen today for a follow up assessment as she waits for a psychiatric hospital placement. Pt has been at [facility] since 05.18.2020. Precipitating Factors Pt endorses SI no HI Disposition BEHAVIOR: In a good space today and willing to accept crisis bed referrals. Pt is using her coping skills and practicing them with this clinician. EYE CONTACT: good MOOD: happy AFFECT: normal APPETITE: eating well SLEEP(trouble falling/staying asleep: slept well. Plan Pt will remain at [facility] and although she is willing to engage in possible referrals for crisis beds this clinician would like to see more of a consistent ability to remain safe and use healthier coping skills before making referrals to crisis beds. This clinician and Chemical Project Engineer participated in a huddle at [facility] where it was discussed that her showers should not be used as rewards or consequences that she uses showers as a coping skill and does not take long ones any way. This is something that she has used for as long as [facility] has worked with her. Pt being able to wear safe street clothes was also discussed and approved for comfort. This clinician will pickling grader clothes at her previous CRYPTOLOGIC TECHNICIAN OPERATOR/ANALYST's home and bring in the am. Pt Signature Clinician's Name/Title: Shae Wright MS, [facility] Emergency Services Clinician, [facility]
== END 2020-05-17 18:40 | disposition other institution (70) | DRG 885 ==
LOC: ER 05-10 15:01 → MS 05-10 18:52
PROVIDERS: Internal Medicine; Nurse Practitioner Family; Student in an Organized Health Care Education/Training Program; Admitting Provider Family Medicine; Emergency Provider Physician Assistant; PCP Family Medicine; Visit Provider Family Medicine
DX: F29 Unspecified psychosis not due to a substance or known physiological condition (principal); F91.3 Oppositional defiant disorder; E11.9 Type 2 diabetes mellitus without complications; R41.89 Other symptoms and signs involving cognitive functions and awareness; F90.2 Attention-deficit hyperactivity disorder, combined type; G25.0 Essential tremor; Q86.0 Fetal alcohol syndrome (dysmorphic); F42.9 Obsessive-compulsive disorder, unspecified; M25.562 Pain in left knee; S60.871A Other superficial bite of right wrist, initial encounter; X83.8XXA Intentional self-harm by other specified means, initial encounter
CPT/HCPCS: 36415; 36416; 73562; 80053; 80307; 81025; 82962; 87635; 97110; 97162; 99220; 99226; 99231; 99232; 99233; 99239; 99285; 80329; 81003; 85025; 99284; G0378; J3490

== ENCOUNTER 2020-05-18 14:05 | Inpatient (IN) | payer MEDICARE, MEDICAID, SELFPAY ==
[2020-05-18] VITALS (41 sets, daily range): BP systolic 82–116; BP diastolic 49–89; PULSE 69–105; RESP 10–22; TEMP 35.4–36.7; O2SAT 97–100
--- NOTE | 2020-05-18 14:00 | RT.EKG_ITS ---
APPROVED REPORT Exam: Resting ECG Patient Location: E HR:86 bpm ECG Measurements Heart Rate 86 AXIS OH 153 P 64 QRSd 93 QRS 66 QT 437 T 44 QTc 522 Conclusion Sinus rhythm...normal P axis, V-rate 60- 99 Prolonged QT interval...QTc >495mS I have reviewed and interpreted ECG and agree with software generated interpretation.
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
[2020-05-18 14:52] LABS: Abs Immature Grans 0.01 10^3/uL (0.0-0.06); Absolute Basophil Count 0.01 10^3/uL (0.0-0.2); Absolute Eosinophil Count 0.45 10^3/uL (0.0-0.7); Absolute Lymphocyte Count 1.14 10^3/uL (1.2-3.4); Absolute Monocyte Count 0.34 10^3/uL (0.1-0.8); Absolute Neutrophil Count 2.83 10^3/uL (1.2-6.7); Basophils % 0.2; Eosinophils % 9.4; HCT 41.6 % (36.0-46.0); HGB 13.6 g/dL (11.2-15.7); Immature Grans % 0.2; Lymphocytes % 23.8; MCH 30.7 pg (27.0-33.0); MCHC 32.7 % (32.0-36.0); MCV 93.9 fL (80-95); MPV 9.7 fL (8.0-11.0); Monocytes % 7.1; Neutrophils % 59.3; Nucleated RBC 0 %; Platelet Count 262 10^3/uL (130-400); RBC 4.43 10^6/uL (3.93-5.22); RDW 12.1 % (11.7-14.6); RDW-SD 42.3 fL; WBC 4.78 10^3/uL (4.4-10.8)
[2020-05-18] MEDS: MAGNESIUM SULFATE 2 GM/50 ML BAG IVPB (15:06)
[2020-05-18 15:09] LABS: ALT 19 U/L (14-59); AST 15 U/L (15-37); Albumin 3.8 g/dL (3.4-5.0); Alkaline Phosphatase 53 U/L (46-116); BUN 20 mg/dL (7-18); Bilirubin, Total 0.2 mg/dL (0.2-1.0); CREATININE 0.8 mg/dL (0.55-1.02); Calcium 9.4 mg/dL (8.5-10.1); Chloride 101 mmol/L (98-107); Glucose 203 mg/dL (74-106); Potassium 3.5 mmol/L (3.5-5.1); Sodium 140 mmol/L (136-145); Total Protein 7.5 g/dL (6.4-8.2)
[2020-05-18] MEDS: Normal Saline 1,000 ML 125 ML IV (15:09)
[2020-05-18] MEDS: Normal Saline Flush 10 ML SYR IVP ×2 (15:09→19:56)
[2020-05-18 15:12] LABS: Troponin I < 0.05 ng/mL (<0.06)
[2020-05-18 15:26] LABS: ETHANOL BLOOD < 3.0 mg/dL (<3)
[2020-05-18 15:29] LABS: Salicylate < 2.8 mg/dL (<2.8)
[2020-05-18 15:35] LABS: Acetaminophen < 2 ug/mL (10-30)
[2020-05-18 16:15] LABS: Source Nasal/Nares
--- NOTE | 2020-05-18 16:47 | CMSP_ITS ---
- If Service Date Differs Date of service: 05/18/20 Time of Service: 16:47 Care Management Safety Plan Status: Voluntary Chief Complaint: Lady was discharged from [facility] into the care of her 14/09 IDDS staff last evening. While in the care of [facility] staff, Lady became violent and unmanageable, and was able to find her medications, which were not in a locked box, and swallow a weeks worth of pills, per report. CM was present when Perez, [facility] ES, contacted the staff via [employer], and interacted with the patient. Lady stated that she wanted to come back to the ED. When asked why, she responded that she just swallowed all of her pills. She did not appear to be in distress at that time. Lady was brought to the ED and was evaluated for medical clearance. She was found to have some changes in her EKG. The provider called poison control, who advised that she be monitored for 16 hours, at which point she will be medically cleared if she is not experiencing any symptoms. Lady will be screened by [facility] once medically cleared. If she meets criteria for inpatient psychiatric placement, she will be held at [facility] until placement is secured. If she does not meet criteria, she will return to her 14/09 support in the community. CM will respond to ED to assess patient after patient has been medically cleared and assessed by screener. If screener deems patient meets criteria for psychiatric stabilization CM will facilitate interdepartmental huddle with [facility] screener for safety planning considerations and meet with patient to review [facility] policy and safety plan, establish individual wishes for treatment and maintain patient rights. In the interim; please note safety plan below to guide patient care while awaiting further assessment in the ED. SAFETY PLAN: 1. Will remain on suicide precautions and in paper clothes. 2. Will remain in room under direct supervision of one-on-one staff at all times provided by [employer] document advisor. 3. May have paper cups, plates, finger foods as well as a cardboard spoon with which to eat meals. 4. Follow [facility] Management of the Admitted Behavioral Health Patient policy. 5. Comfort bath system only. 6. No personal belongings 7. No visitors, with the exception of staff. 8. Phone contact limited to [facility] supports. 9. Due to VOLUNTARY status, if patient wishes to leave [facility], staff will contact [facility] Crisis Screener ([phone]) and On-Call Loft Worker ([phone]) as soon as possible. In the event of elopement, notify [facility] Police ([phone]). If deemed appropriate for inpatient psychiatric care, safety plan will be established with patient, and care team, to adhere to patient goals, identify restrictions based on behavioral status, address nutrition, and determine allowed personal belongings, tools for hygiene and personal care. As well plan will determine level of activity including ambulation, level of supervision, visitors, and determine privileges based on level of acuity, behaviors and level of engagement by patient.
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
[2020-05-18 18:01] LABS: Bilirubin Negative (Negative); Blood Negative (Negative); Clarity Clear (Clear); Glucose Negative (Negative); Ketones Negative (Negative); Leukocyte Esterase Negative (Negative); Nitrite Negative (Negative); Specific Gravity 1.025 (1.005-1.025); Urobilinogen 0.2 EU/dL (Up TO 0.2)
[2020-05-18 18:12] LABS: *AMPHETAMINES SCREEN URINE Negative (Negative); *BARBITURATES SCREEN URINE Negative (Negative); *BENZODIAZEPINES SCREEN URINE Negative (Negative); Cannabinoids THC Negative (Negative); Cocaine Screen,Urine Negative (Negative); METHADONE URINE SCREEN Negative (Negative); OPIATES URINE SCREEN Negative (Negative)
[2020-05-18 18:17] LABS: Tricyclic Antidepressants Negative (Negative)
[2020-05-18 18:31] LABS: Anion Gap 9.8 mmol/L (3-11); BUN 19 mg/dL (7-18); CO2 26.2 mmol/L (21.0-32.0); CREATININE 0.7 mg/dL (0.55-1.02); Calcium 8.6 mg/dL (8.5-10.1); Chloride 104 mmol/L (98-107); Glucose 193 mg/dL (74-106); Lactate 3.4 mmol/L (0.6-1.4); Sodium 140 mmol/L (136-145)
[2020-05-18 18:45] LABS: Acetaminophen < 2 ug/mL (10-30)
[2020-05-18] MEDS: diazePAM 10 MG/2 ML SYR IVP ×2 (19:57→23:35)
[2020-05-18] MEDS: Normal Saline 1,000 ML 1000 ML IV ×2 (20:01→22:30)
[2020-05-18 22:32] LABS: BUN 15 mg/dL (7-18); CREATININE 0.5 mg/dL (0.55-1.02); Calcium 7.9 mg/dL (8.5-10.1); Chloride 109 mmol/L (98-107); Glucose 150 mg/dL (74-106); Magnesium 1.9 mg/dL (1.8-2.4); Potassium 4.3 mmol/L (3.5-5.1); Sodium 142 mmol/L (136-145)
[2020-05-18 22:35] LABS: Creatine Kinase 67 U/L (26-192)
[2020-05-19] VITALS (48 sets, daily range): BP systolic 83–121; BP diastolic 49–93; PULSE 69–107; RESP 9–19; TEMP 36.2–36.6; O2SAT 93–100
[2020-05-19] MEDS: Normal Saline 1,000 ML 125 ML IV (00:17)
[2020-05-19 06:41] LABS: Lactate 1.1 mmol/L (0.6-1.4)
[2020-05-19 06:53] LABS: Magnesium 1.7 mg/dL (1.8-2.4)
[2020-05-19] MEDS: diazePAM 10 MG/2 ML SYR IVP (08:13)
[2020-05-19] MEDS: Insulin Aspart 300 UNITS/3 ML PEN SC ×3 (08:39→21:34)
[2020-05-19] MEDS: Magnesium Oxide 400 MG TAB PO ×2 (08:46→21:32)
[2020-05-19] MEDS: MAGNESIUM SULFATE 2 GM/50 ML BAG IVPB (08:47)
--- NOTE | 2020-05-19 10:15 | RT.EKG_ITS ---
APPROVED REPORT Exam: Resting ECG Patient Location: I HR:80 bpm ECG Measurements Heart Rate 80 AXIS CA 158 P 48 QRSd 90 QRS 52 QT 425 T 43 QTc 490 Conclusion Sinus rhythm...normal P axis, V-rate 60- 99
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
[2020-05-19 10:27] LABS: COVID-19 PCR Negative (Negative)
[2020-05-19] MEDS: diazePAM 2 MG TAB PO ×2 (12:06→14:58)
[2020-05-19] MEDS: Diclofenac 1% Gel 100 GM TUBE TP ×3 (12:24→21:32)
--- NOTE | 2020-05-19 12:59 | PHA.REVIEW ---
Pharmacy Admission Review - Admission Clinical Review (Last Reviewed 05/18/20 @ 17:55 by Chace Lo) Left knee pain (Acute) Intentional drug overdose (Acute) Drug overdose, multiple drugs (Acute) Prolonged QT interval (Acute) Suicidal ideation (Acute) sertraline Adverse Reaction (Intermediate, Verified 05/18/20 14:16) agitation Height 4 ft 11 in Weight 66.4 kg - Renal Dosing Renal Dosing: BUN 15 mg/dL (7-18) 05/18/20 22:00 Creatinine 0.5 mg/dL (0.55-1.02) L 05/18/20 22:00 Medications needing adjustments: Reviewed (crcl ~71ml/min) - Anticoagulation Anticoagulation: Hgb 13.6 g/dL (11.2-15.7) 05/18/20 14:45 Hct 41.6 % (36.0-46.0) 05/18/20 14:45 Plt Count 262 10^3/uL (130-400) 05/18/20 14:45 Creatinine 0.5 mg/dL (0.55-1.02) L 05/18/20 22:00 DVT Prohphylaxis: N/A Therapeutic Anticoagulation: N/A - Relevant Labs Sodium 142 mmol/L (136-145) 05/18/20 22:00 Potassium 4.3 mmol/L (3.5-5.1) 05/18/20 22:00 Chloride 109 mmol/L (98-107) H 05/18/20 22:00 Magnesium 1.7 mg/dL (1.8-2.4) L 05/19/20 06:30 Electrolytes, C-Reactive P, ESR: Reviewed - DM Control DM Control: Glucose 150 mg/dL (74-106) H 05/18/20 22:00 Finger Stick Blood Glucose 143 Finger Stick Blood Glucose 143 Finger Stick Blood Glucose 143 Finger Stick Blood Glucose 150 Finger Stick Blood Glucose 150 Finger Stick Blood Glucose 178 Finger Stick Blood Glucose 178 Insulin Dosing: Reviewed (insulin aspart SS) - Heart Failure/SD Heart Failure/SD: Troponin I < 0.05 ng/mL (<0.06) 05/18/20 14:45 - BP Control BP Control: Blood Pressure 95/63 Blood Pressure 107/67 Blood Pressure 108/65 Blood Pressure 101/72 Blood Pressure 96/66 Blood Pressure 96/66 Blood Pressure 106/93 Blood Pressure 86/51 Blood Pressure 87/55 Blood Pressure 89/54 Blood Pressure 88/60 Blood Pressure 90/53 Blood Pressure 86/55 Blood Pressure 87/57 Blood Pressure 88/55 If elevated: N/A - Qtc Review If Elevated: Reviewed (522 on admission) - Comments Comments/Follow Ups: it is reported that pt took 6 days of all her meds
--- NOTE | 2020-05-19 15:07 | CMPROGNOTE_ITS ---
- If Service Date Differs Date of service: 05/19/20 Time of Service: 15:07 Care Management Progress Note S/O: Lady presented to the ED yesterday after taking an intentional overdose on medication. She was in the care of [facility] staff in a home provided by [facility] when she became out of control, and was able to locate her medication and take, per report, a week's worth of pills at once. Staff was on facetime with ELISE Todd when this happened, as her behaviors had elevated to a point that the caregiver requested an emergency screening. She was brought to the ED via ambulance. NUVIA contacted ELISE VELASQUEZ, this morning to coordinate a mental health screen, as Lady was medically cleared at that point. ELISE Corrales, discussed the plan with NUVIA, and asked her team if a [facility] should become involved in the event that Lady will be held involuntarily. Savanna arrived to screen Lady at 1pm. NUVIA was present for the conversation. There were two [facility] staff members in the room, as well as a conference call with ELISE Rendon, and Emmie, Office of Public Guardian. Lady was visibly uncomfortable, as she was fidgeting and flicking her fingers. She reported that she was feeling suicidal yesterday, and that she did want to kill herself when she took the overdose of pills. She reported wanted to go be with h er father, who is . She stated that she does not want to return to the crisis bed, where she was yesterday. She stated that she feels safe at [facility] and would like to remain in this hospital. When asked about going to an inpatient psychiatric hospital, she stated that she was agreeable to go at this time. Her caregiver who was present for the conversation reported that Lady flicking her fingers is a warning sign, and it is often the first step to a violent outburst. NUVIA coordinated a huddle with ELISE Corrales; Dilcia, RN Poison Information Specialist; Pamella, primary RN. Lady will be held voluntarily at this time, as she is not stable for discharge. Appropriate changes will be made to the safety plan in order to keep Lady and her team safe. NUVIA and ELISE Corrales, called and spoke to Justice, updating him on the plan. NUVIA reported that a referral will be sent to [facility], but that if they are not willing to consider her, and all other inpatient hospitals have been exhausted, she will either be walked off, or will need to be considered involuntary, and a referral at that point will be sent to [facility]. Dr. Mueller, [facility], will be contacted by IDDS staff tomorrow, and will call the provider to discuss mediation management. If she becomes stable, Lady will need to return to the community with her 14/09 supports. A: Lady is a 34 year old female admitted to [facility] on 05/18/20 with polypharmacy o/d, SI, Depression. P: Anticipate Lady will either go to an inpatient psychiatric facility vs return to the community with her 14/09 staff. Staff of [facility] will remain at [facility] to assist with redirection and managing behaviors. Once ready for transport, she will go via Furniture Repair Technician vs staff, depending on disposition. She will follow up with her psychiatrist, and her discharge plan of care. CM will continue to follow.
--- NOTE | 2020-05-19 16:39 | PDOC.MHCN_ITS ---
Date of service: 05/19/20 Time of Service: 13:02 Mental Health Crisis Note Presenting Issue How did you arrive at the ED and why did you come: Patient was michel to Ed last night 05/18 by ambulance . She had taken an overdose of her pills in attempt to kill herself. She has been medically cleared today is being seeng by [facility] emergency clinician for assessment. Precipitating Factors Patient is currently resting in her bed with two caretakers from [facility] available and and [facility] church supervisor, Justice ASTUDILLO and the patients guardian Emmie virgen on the phone. Client is assess for SI by being given he PHQ-9 and the [place] Suicide Severity Rating Scale. Client presents at a high risk of harm to herself and based on her behaviors prior to admission is a threat to the safety of others. She had run into the home and grabbed her medications and the aide was unable to keep her safe. She is presently admitting she will kill herself if she has to go back to the home. She is willing to seek treatment at a [facility] facility for help with these beaviors. Disposition BEHAVIOR: She is calm at interals and needs assistance by caregives to maintain calm. She answers quetions responsibly and is cooperative. EYE CONTACT: she occasionally looks at this clincian and is looking at her caregiver. AFFECT: She has a full range of affect due to anxiety and fear APPETITE: states she has no problem with appetitie, guardian states she overeats at times SLEEP(trouble falling/staying asleep: She reports inablity to sleep Plan A huddle with child daycare worker Haley and two ICU nurses, Dilcia and Pamella the determination is agreed [facility] . LAWRENCE [place] church supervisor was notified of this plan and apprised of the situation that she will be able to stay in [facility] while placement is sought. Justice Astudillo will also notify Dr. Vuong for consultation and contact the hospital so there can be a discussion about possible medication changes. [facility] clincians will continue to assess patient daily as long as she remains in the hospital.
--- NOTE | 2020-05-19 18:00 | CMSP_ITS ---
- If Service Date Differs Date of service: 05/19/20 Time of Service: 18:00 Care Management Safety Plan Status: Voluntary VOLUNTARY FOR INPATIENT PSYCHIATRIC STABILIZATION. Lady is a 34 year old female who receives services through the IDDS program at [facility]. She was brought to the ED after taking an intentional overdose of her own medications. Lady has a long psychiatric history. CM was present for the mental health evaluation today with Savanna [facility], who feels that she meets criteria for inpatient psychiatric stabilization. A referral was sent to [facility] for consideration. [facility] to coordinate placement, with support of CM. Justice TEJAS IDDS stated that there is bed availability at [facility] on 06/03/20. CM expressed concern regarding the expectation for Lady to remain at [facility] for this extended period of time. If Lady is stable, she will be returned to the care of her 14/09 staff, coordinated by IDDS/[facility]. Per report, [facility] staff feel that Lady's behaviors will increase the longer that she remains at [facility]. Staff expressed concern over Lady flicking her fingers, which is a warning sign for escalation in behavior. Lady will be accompanied by [facility] staff, one on one, for the duration of this hospital stay. [facility] staff is instructed by their track inspecting supervisor that they can sleep when Lady is sleeping, in the room with her. Lady has required redirection from the [facility] staff, who are mostly known to her. Safety plan has been established with patient, and care team, to adhere to patient goals, identify restrictions based on behavioral status, address nutrition, and determine allowed personal belongings, tools for hygiene and personal care. Determine level of activity including ambulation, level of supervision, visitors, and determine privileges based on behaviors and level of engagement by pt. SAFETY PLAN: 1. Will remain on suicide precautions. In Paper Clothes. Permitted to have own sports bra and underwear. 2. Will remain in room under direct supervision of one-on-one staff at all times provided by [employer]; MEGAN, SOFTWARE TECHNICIAN stenotype machine operator. 3. May have paper cups, plates, finger foods as well as a metal spoon with which to eat meals. 4. Follow [facility] Management of the Admitted Behavioral Health Patient policy. 5. Comfort bath system only at this time. 6. No personal belongings except items provided by staff such as stuffed cat at RN discretion. 7. Visitors: Limited to [facility] IDDS Program staff. Reclining chair permitted in room for IDDS staff. 8. Activities: Television and remote permitted, cards, coloring books, crayons, fan, and other activities at nursing discretion. Music tablet permitted for use of calming music when television is turned off at night, to promote better sleep- also at nursing discretion. 9. Bathroom privileges: may use bathroom in room without supervision. 10. Phone: Hospital phone use at discretion of nursing staff. 11. Due to VOLUNTARY status, if patient wishes to leave [facility], staff will contact [facility] Crisis Screener ([phone]) and On-Call Surface Miner ([phone]) as soon as possible. In the event of elopement, notify [facility] Police ([phone]). Patient is currently voluntarily at [facility] and seeking inpatient admission when a bed becomes available. [facility] Frontline Rubber Mixer will continue seeking placement. Please contact the Jig Worker Surface Miner ([phone]) and [facility] Rubber Mixer ([phone]) for any needed changes in the Safety Plan. Safety plan has been provided to interdepartmental care team.
--- NOTE | 2020-05-19 18:00 | PDOC.CMSAFE ---
- If Service Date Differs Date of service: 05/19/20 Time of Service: 18:00 Care Management Safety Plan Status: Voluntary VOLUNTARY FOR INPATIENT PSYCHIATRIC STABILIZATION. Lady is a 34 year old female who receives services through the IDDS program at [facility]. She was brought to the ED after taking an intentional overdose of her own medications. Lady has a long psychiatric history. CM was present for the mental health evaluation today with Savanna [facility], who feels that she meets criteria for inpatient psychiatric stabilization. A referral was sent to [facility] for consideration. [facility] to coordinate placement, with support of CM. Justice TEJAS IDDS stated that there is bed availability at [facility] on 06/03/20. CM expressed concern regarding the expectation for Lady to remain at [facility] for this extended period of time. If Lady is stable, she will be returned to the care of her 14/09 staff, coordinated by IDDS/[facility]. Per report, [facility] staff feel that Lady's behaviors will increase the longer that she remains at [facility]. Staff expressed concern over Lady flicking her fingers, which is a warning sign for escalation in behavior. Lady will be accompanied by [facility] staff, one on one, for the duration of this hospital stay. [facility] staff is instructed by their supervisor pipeline maintenance that they can sleep when Lady is sleeping, in the room with her. Lady has required redirection from the [facility] staff, who are mostly known to her. Safety plan has been established with patient, and care team, to adhere to patient goals, identify restrictions based on behavioral status, address nutrition, and determine allowed personal belongings, tools for hygiene and personal care. Determine level of activity including ambulation, level of supervision, visitors, and determine privileges based on behaviors and level of engagement by pt. SAFETY PLAN: 1. Will remain on suicide precautions. In Paper Clothes. Permitted to have own sports bra and underwear. 2. Will remain in room under direct supervision of one-on-one staff at all times provided by CPSO; MEGAN, CANE WEIGHER boxing machine operator. 3. May have paper cups, plates, finger foods as well as a metal spoon with which to eat meals. 4. Follow [facility] Management of the Admitted Behavioral Health Patient policy. 5. Comfort bath system only at this time. 6. No personal belongings except items provided by staff such as stuffed cat at RN discretion. 7. Visitors: Limited to [facility] IDDS Program staff. Reclining chair permitted in room for IDDS staff. 8. Activities: Television and remote permitted, cards, coloring books, crayons, fan, and other activities at nursing discretion. Music tablet permitted for use of calming music when television is turned off at night, to promote better sleep- also at nursing discretion. 9. Bathroom privileges: may use bathroom in room without supervision. 10. Phone: Hospital phone use at discretion of nursing staff. 11. Due to VOLUNTARY status, if patient wishes to leave [facility], staff will contact [facility] Crisis Screener ([phone]) and On-Call Inspector Open Die ([phone]) as soon as possible. In the event of elopement, notify [facility] Police ([phone]). Patient is currently voluntarily at [facility] and seeking inpatient admission when a bed becomes available. [facility] Frontline Business Ethics Professor will continue seeking placement. Please contact the Boat Loader Helper Inspector Open Die ([phone]) and [facility] Business Ethics Professor ([phone]) for any needed changes in the Safety Plan. Safety plan has been provided to interdepartmental care team.
[2020-05-20] VITALS (8 sets, daily range): BP systolic 106–119; BP diastolic 68–84; PULSE 74–98; RESP 16–22; TEMP 36–36.5; O2SAT 96–99
[2020-05-20] MEDS: Diclofenac 1% Gel 100 GM TUBE TP ×4 (08:38→20:08)
[2020-05-20] MEDS: Magnesium Oxide 400 MG TAB PO ×2 (08:38→20:08)
[2020-05-20] MEDS: Insulin Aspart 300 UNITS/3 ML PEN SC ×3 (08:38→21:35)
[2020-05-20] MEDS: diazePAM 2 MG TAB PO ×3 (09:43→20:07)
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
--- NOTE | 2020-05-20 16:20 | CMSP_ITS ---
- If Service Date Differs Date of service: 05/20/20 Time of Service: 16:20 Care Management Safety Plan Status: Voluntary VOLUNTARY FOR INPATIENT PSYCHIATRIC STABILIZATION. Lady is a 34 year old female who receives services through the IDDS program at [facility]. She was brought to the ED after taking an intentional overdose of her own medications. Lady has a long psychiatric history. [facility] has determined that she meets criteria for inpatient psychiatric stabilization. A referral was sent to [facility] and [facility] for consideration. [facility] to coordinate placement, with support of CM. ELISE Rendon stated that there is bed availability at [facility] on 06/03/20. CM expressed concern regarding the expectation for Lady to remain at [facility] for this extended period of time. Staff expressed concern over Lady flicking her fingers, which is a warning sign for escalation in behavior. Lady will be accompanied by [facility] staff, one on one, for the duration of this hospital stay. [facility] staff is instructed by their parking supervisor that they can sleep when Lady is sleeping, in the room with her. Lady has required redirection from the [facility] staff, who are mostly known to her. A safety huddle was held at 4 pm with Justice TEJAS BRAVO, Isabel MOTA, Lillian PEDERSEN, Yevgeniy Salas, project manager, and SCOTTY Mcadams has volunteered to create a list of techniques and tools to use with Lady that have been shown to help with de-escalation. Safety plan has been established with patient, and care team, to adhere to patient goals, identify restrictions based on behavioral status, address nutrition, and determine allowed personal belongings, tools for hygiene and personal care. Determine level of activity including ambulation, level of supervision, visitors, and determine privileges based on behaviors and level of engagement by pt. SAFETY PLAN: 1. Will remain on suicide precautions. In Paper Clothes. Permitted to have own sports bra and underwear. 2. Will remain in room under direct supervision of one-on-one staff at all times provided by CPSO; MEGAN, CARE ATTENDANT commutator presser. 3. May have paper cups, plates, finger foods as well as a metal spoon with which to eat meals. 4. Follow [facility] Management of the Admitted Behavioral Health Patient policy. 5. May shower up to 3 times a day at discretion of nursing staff, pending staff availability 6. No personal belongings except items provided by staff such as stuffed cat at RN discretion. 7. Visitors: Limited to [facility] IDDS Program staff. Reclining chair permitted in room for IDDS staff. 8. Activities: Television and remote permitted, cards, coloring books, crayons, fan, and other activities at nursing discretion. Music tablet permitted for use of calming music when television is turned off at night, to promote better sleep- also at nursing discretion. 9. Bathroom privileges: may use bathroom in room without supervision. 10. Phone: Hospital phone use at discretion of nursing staff. 11. Due to VOLUNTARY status, if patient wishes to leave [facility], staff will contact [facility] Crisis Screener ([phone]) and On-Call Car Body Mechanic ([phone]) as soon as possible. In the event of elopement, notify [facility] Police ([phone]). Patient is currently voluntarily at [facility] and seeking inpatient admission when a bed becomes available. [facility] Frontline Structural Technician will continue seeking placement. Please contact the Iron Handler Car Body Mechanic ([phone]) and [facility] Structural Technician ([phone]) for any needed changes in the Safety Plan. Safety plan has been provided to interdepartmental care team.
--- NOTE | 2020-05-20 17:33 | NUR.NOTE ---
Nursing Note: 05/20/20 17:33 Patient transferred from ICU to Transition Unit on Med/Surg, is now in room 234 with CPSO and caregiver present in room as ordered. Nursing handoff given by Lisseth to this nurse. Patient received insulin and Voltaren gel prior to transfer, is now eating dinner in 234.
[2020-05-20] MEDS: diazePAM 5 MG TAB PO (22:17)
--- NOTE | 2020-05-20 22:52 | MHPN_ITS ---
Date of service: 05/25/20 Time of Service: 22:53 Mental Health Crisis Note Presenting Issue How did you arrive at the ED and why did you come: Pt is being seen today for a follow up assessment as she waits for a psychiatric hospital placement. Pt has been at [facility] since 05.18.2020. Precipitating Factors No current ideation Disposition BEHAVIOR: Pt is in a great mood today all day. She is excited for Easter tomorrow. She wonders if the Sue Lopez comes to the hospital and will know if she is there. Pt is using her skills nicely today. EYE CONTACT: Good MOOD: Happy and excited. AFFECT: Smiling. APPETITE: Pt loves to eat so this is never an issue. Plan Pt is willing to accept a lesser restrictive placement and so this will be explored. She will until placement is found remain at [facility] for safety and will continue to be supported by her [facility] staff as well as the [facility] staff. Pt has not had an overnight support person from [facility] and this has proven to be helpful in regards to how much consistent sleep she has gotten. A daily huddle was done and it was reminded to staff that Pt's TID showers are not a reward or consequence but rather a coping skill. Nursing will give the Pt her basket in the morning. Signature Clinician's Name/Title: Shae Wright MS, [facility] Emergency Services Clinician, [facility]
--- NOTE | 2020-05-21 03:50 | NUR.NOTE ---
Nursing Note:Pt raised rails on her own [facility] staff did not raise rails
[2020-05-21 05:48] VITALS: BP 113/75; PULSE 102; RESP 18; TEMP 36.3; O2SAT 98
--- NOTE | 2020-05-21 06:52 | NUR.NOTE ---
Nursing Note: Patient reports itchy skin and has scratched her right forearm enough that it is bright red with nail vanessa. Patient has been requesting to watch TV. RN has informed patient, her caretgiver in the room, and CPSOs that if patient can refrain from scratching for one hour, she can watch TV. Each time she is found to be scratching, she will need to wait another hour. Patient has agreed to this plan.
[2020-05-21] MEDS: Diclofenac 1% Gel 100 GM TUBE TP ×4 (08:46→21:10)
[2020-05-21] MEDS: Insulin Aspart 300 UNITS/3 ML PEN SC ×4 (08:47→21:49)
[2020-05-21] MEDS: Magnesium Oxide 400 MG TAB PO ×2 (08:48→21:10)
[2020-05-21] MEDS: diazePAM 2 MG TAB PO ×3 (08:48→21:10)
--- NOTE | 2020-05-21 09:18 | PDOC.CMPRO ---
- If Service Date Differs Date of service: 05/21/20 Time of Service: 09:18 Care Management Progress Note S/O: Lady presented to the ED on Wednesday after taking an intentional overdose of medication. She was in the care of IDDS/[facility] staff in a home provided by [facility] when she became out of control, and was able to locate her medication and take, per report, a week's worth of pills at once. Staff was on facetime with [facility] when this happened, as Lady's behaviors had elevated to a point that the caregiver requested an emergency screening. She was brought to the ED via ambulance. Lady was cooperative and appropriate with staff today. She was more easily redirected than at times in the past and evidenced that she is trying to comply with requests, such as not asking continuously who the oncoming staff will be. Lady did request that the [facility] support person assigned to be with her overnight last night not return. She stated that his machine (CPAP) used during the night was too noisy and kept her awake. After discussion with senior management and staff, the decision was made to not have a support person with Lady during the night tonight, as a trial, since the only person available is the gentleman with CPAP. VOLUNTARY FOR INPATIENT PSYCHIATRIC STABILIZATION. A safety huddle was held at 4 pm with Yevgeniy [facility] FARHANADS, Alexa CC, Lillian PEDERSEN, Shae [facility], Yevgeniy, project estimator, Selam PATINO and Lauren, Nursing ordnance truck installation supervisor Shae shared a list of techniques and tools to use with Lady that have been shown to help with de-escalation. A copy was given to each production team advisor present and a copy is on her chart. Safety plan has been established with patient, and care team, to adhere to patient goals, identify restrictions based on behavioral status, address nutrition, and determine allowed personal belongings, tools for hygiene and personal care. Determine level of activity including ambulation, level of supervision, visitors, and determine privileges based on behaviors and level of engagement by pt. SAFETY PLAN: 1. Will remain on suicide precautions. In Paper Clothes. Permitted to have own sports bra and underwear. 2. Will remain in room under direct supervision of one-on-one staff at all times provided by CPSO; MEGAN, PHARMACY TECHNOLOGIST death clearance coordinator. 3. May have paper cups, plates, finger foods as well as a metal spoon with which to eat meals. 4. Follow [facility] Management of the Admitted Behavioral Health Patient policy. 5. May shower up to 3 times a day at discretion of nursing staff, pending staff availability 6. No personal belongings except items provided by staff such as stuffed cat at RN discretion. 7. Visitors: Limited to [facility] IDDS Program staff. Reclining chair permitted in room for IDDS staff. 8. Activities: Television and remote permitted, cards, coloring books, crayons, fan, and other activities at nursing discretion. Music tablet permitted for use of calming music when television is turned off at night, to promote better sleep- also at nursing discretion. 9. Bathroom privileges: may use bathroom in room without supervision. 10. Phone: Hospital phone use at discretion of nursing staff. 11. Due to VOLUNTARY status, if patient wishes to leave [facility], staff will contact [facility] Crisis Screener ([phone]) and On-Call Accounts Receivable Associate ([phone]) as soon as possible. In the event of elopement, notify [facility] Police ([phone]). Patient is currently voluntarily at [facility] and seeking inpatient admission when a bed becomes available. [facility] Frontline Cattle Rancher will continue seeking placement. Please contact the Maintainability Engineer Accounts Receivable Associate ([phone]) and [facility] Cattle Rancher ([phone]) for any needed changes in the Safety Plan. Safety plan has been provided to interdepartmental care team.
--- NOTE | 2020-05-21 09:26 | CMSP_ITS ---
- If Service Date Differs Date of service: 05/21/20 Time of Service: 09:26 Care Management Safety Plan Status: Voluntary VOLUNTARY FOR INPATIENT PSYCHIATRIC STABILIZATION. Lady is a 34 year old female who receives services through the IDDS program at [facility]. She was brought to the ED after taking an intentional overdose of her own medications. Lady has a long psychiatric history. [facility] has determined that she meets criteria for inpatient psychiatric stabilization. [facility]. [facility] to coordinate placement, with support of CM. Justice [facility] IDDS stated that there is bed availability at [facility] on 06/03/20. CM expressed concern regarding the expectation for Lady to remain at [facility] for this extended period of time. Staff expressed concern over Lady flicking her fingers, which is a warning sign for escalation in behavior. Lady will be accompanied by [facility] staff, one on one, for the duration of this hospital stay, as much as possible. [facility] staff is instructed by their color making supervisor that they can sleep when Lady is sleeping, in the room with her. Lady has required redirection from the [facility] staff, who are mostly known to her. A safety huddle was held at 4 pm with Yevgeniy [facility] IDDS, Alexa MOTA, Lillian PEDERSEN, Shae [facility], Yevgeniy, human projectile, Selam PATINO and Lauren, Nursing color making supervisor Shae shared a list of techniques and tools to use with Lady that have been shown to help with de-escalation. A copy was given to each front desk team member present and a copy is on her chart. Safety plan has been established with patient, and care team, to adhere to patient goals, identify restrictions based on behavioral status, address nutrition, and determine allowed personal belongings, tools for hygiene and personal care. Determine level of activity including ambulation, level of supervision, visitors, and determine privileges based on behaviors and level of engagement by pt. SAFETY PLAN: 1. Will remain on suicide precautions. In Paper Clothes. Permitted to have own sports bra and underwear. 2. Will remain in room under direct supervision of one-on-one staff at all times provided by CPSO; MEGAN, REAL ESTATE LEASING MANAGER newborn hearing screener. 3. May have paper cups, plates, finger foods as well as a metal spoon with which to eat meals. 4. Follow [facility] Management of the Admitted Behavioral Health Patient policy. 5. May shower up to 3 times a day at discretion of nursing staff, pending staff availability 6. No personal belongings except items provided by staff such as stuffed cat at RN discretion. 7. Visitors: Limited to [facility] IDDS Program staff. Reclining chair permitted in room for IDDS staff. 8. Activities: Television and remote permitted, cards, coloring books, crayons, fan, and other activities at nursing discretion. Music tablet permitted for use of calming music when television is turned off at night, to promote better sleep- also at nursing discretion. 9. Bathroom privileges: may use bathroom in room without supervision. 10. Phone: Hospital phone use at discretion of nursing staff. 11. Due to VOLUNTARY status, if patient wishes to leave [facility], staff will contact [facility] Crisis Screener ([phone]) and On-Call Anesthesiology Teacher ([phone]) as soon as possible. In the event of elopement, notify [facility] Police ([phone]). Patient is currently voluntarily at [facility] and seeking inpatient admission when a bed becomes available. [facility] Frontline Business School Dean will continue seeking placement. Please contact the Bpo Specialist Anesthesiology Teacher ([phone]) and [facility] Business School Dean ([phone]) for any needed changes in the Safety Plan. Safety plan has been provided to interdepartmental care team.
--- NOTE | 2020-05-21 09:26 | PDOC.CMSAFE ---
- If Service Date Differs Date of service: 05/21/20 Time of Service: 09:26 Care Management Safety Plan Status: Voluntary VOLUNTARY FOR INPATIENT PSYCHIATRIC STABILIZATION. Lady is a 34 year old female who receives services through the IDDS program at [facility]. She was brought to the ED after taking an intentional overdose of her own medications. Lady has a long psychiatric history. [facility] has determined that she meets criteria for inpatient psychiatric stabilization. [facility]. [facility] to coordinate placement, with support of CM. Justice [facility] IDDS stated that there is bed availability at [facility] on 06/03/20. CM expressed concern regarding the expectation for Lady to remain at [facility] for this extended period of time. Staff expressed concern over Lady flicking her fingers, which is a warning sign for escalation in behavior. Lady will be accompanied by [facility] staff, one on one, for the duration of this hospital stay, as much as possible. [facility] staff is instructed by their bottling supervisor that they can sleep when Lady is sleeping, in the room with her. Lady has required redirection from the [facility] staff, who are mostly known to her. A safety huddle was held at 4 pm with Yevgeniy [facility] IDDS, Alexa MOTA, Lillian PEDERSEN, Shae [facility], Yevgeniy, project intern, Selam PATINO and Lauren, Nursing bottling supervisor hSae shared a list of techniques and tools to use with Lady that have been shown to help with de-escalation. A copy was given to each steamboat pilot present and a copy is on her chart. Safety plan has been established with patient, and care team, to adhere to patient goals, identify restrictions based on behavioral status, address nutrition, and determine allowed personal belongings, tools for hygiene and personal care. Determine level of activity including ambulation, level of supervision, visitors, and determine privileges based on behaviors and level of engagement by pt. SAFETY PLAN: 1. Will remain on suicide precautions. In Paper Clothes. Permitted to have own sports bra and underwear. 2. Will remain in room under direct supervision of one-on-one staff at all times provided by CPSO; MEGAN, CAR PICK UP DRIVER manager of corporate. 3. May have paper cups, plates, finger foods as well as a metal spoon with which to eat meals. 4. Follow [facility] Management of the Admitted Behavioral Health Patient policy. 5. May shower up to 3 times a day at discretion of nursing staff, pending staff availability 6. No personal belongings except items provided by staff such as stuffed cat at RN discretion. 7. Visitors: Limited to [facility] IDDS Program staff. Reclining chair permitted in room for IDDS staff. 8. Activities: Television and remote permitted, cards, coloring books, crayons, fan, and other activities at nursing discretion. Music tablet permitted for use of calming music when television is turned off at night, to promote better sleep- also at nursing discretion. 9. Bathroom privileges: may use bathroom in room without supervision. 10. Phone: Hospital phone use at discretion of nursing staff. 11. Due to VOLUNTARY status, if patient wishes to leave [facility], staff will contact [facility] Crisis Screener ([phone]) and On-Call Strip Polisher ([phone]) as soon as possible. In the event of elopement, notify [facility] Police ([phone]). Patient is currently voluntarily at [facility] and seeking inpatient admission when a bed becomes available. [facility] Frontline Pool Installer will continue seeking placement. Please contact the Manager Energy Strip Polisher ([phone]) and [facility] Pool Installer ([phone]) for any needed changes in the Safety Plan. Safety plan has been provided to interdepartmental care team.
[2020-05-21] MEDS: diazePAM 5 MG TAB PO ×2 (10:25→18:11)
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
[2020-05-21 15:31] VITALS: BP 112/78; PULSE 77; RESP 12; TEMP 36.6; O2SAT 100
[2020-05-21 19:29] VITALS: BP 118/76; PULSE 78; RESP 18; TEMP 36.7
[2020-05-21 21:54] VITALS: BP 110/72; PULSE 76; RESP 18; TEMP 36.5; O2SAT 100
[2020-05-22 06:59] VITALS: BP 94/70; PULSE 116; RESP 18; TEMP 36.1; O2SAT 98
[2020-05-22] MEDS: Insulin Aspart 300 UNITS/3 ML PEN SC ×3 (08:12→22:22)
[2020-05-22] MEDS: diazePAM 2 MG TAB PO ×2 (08:13→22:39)
[2020-05-22] MEDS: Magnesium Oxide 400 MG TAB PO ×2 (08:13→22:23)
[2020-05-22] MEDS: Diclofenac 1% Gel 100 GM TUBE TP ×3 (08:13→22:21)
--- NOTE | 2020-05-22 09:01 | PDOC.CMPRO ---
- If Service Date Differs Date of service: 05/22/20 Time of Service: 09:01 Care Management Progress Note Lady is a 34 year old female who receives services through the IDDS program at [facility]. She was brought to the ED after taking an intentional overdose of her own medications. Lady has a long psychiatric history. [facility] has determined that she meets criteria for inpatient psychiatric stabilization. [facility] and [facility] for consideration. [facility] to coordinate placement, with support of NUVIA. Lady slept well last night per staff, despite the fact that she did not have a support person with her. Early in the day she appeared to be in a good mood. At 11 am there was a Zoom meeting facilitated by NUVIA with her psychiatrist , Yevgeniy her pillowcase cutter and other support manager from [facility]. The meeting went well and a decision was made to restart her medications. As the day progressed Lady became weepy and emotional. Around 2 pm she had an episode of aggression which involved hitting the wall with her hand repeatedly and banging her head. She was unable to regain control on her own, refusing to use any of the techniques that have been taught to her to help with relaxation. Lady received a PRN injection of Haldol, Valium and Benedryl at 14:26 with good effect and slept most of the rest of the afternoon. VOLUNTARY FOR INPATIENT PSYCHIATRIC STABILIZATION. A safety huddle was held at 3pm with Lillian Mcclure CM, Shae [facility], Lady RN and Nimisha Nursing steel post installer supervisor Safety plan has been established with patient, and care team, to adhere to patient goals, identify restrictions based on behavioral status, address nutrition, and determine allowed personal belongings, tools for hygiene and personal care. Determine level of activity including ambulation, level of supervision, visitors, and determine privileges based on behaviors and level of engagement by pt. SAFETY PLAN: 1. Will remain on suicide precautions. In Paper Clothes. Permitted to have own sports bra and underwear. 2. Will remain in room under direct supervision of one-on-one staff at all times provided by CPSO; MEGAN, NAHUM fire equipment repairer inspector. 3. May have paper cups, plates, finger foods as well as a metal spoon with which to eat meals. 4. Follow [facility] Management of the Admitted Behavioral Health Patient policy. 5. May shower up to 3 times a day at discretion of nursing staff, pending staff availability 6. No personal belongings. Watch and knee brace removed following aggressive outburst. 7. Visitors: Limited to [facility] IDDS Program staff. Reclining chair permitted in room for IDDS staff. 8. Activities: Television and remote permitted, cards, coloring books, crayons, fan, and other activities at nursing discretion. Music tablet permitted for use of calming music when television is turned off at night, to promote better sleep- also at nursing discretion. 9. Bathroom privileges: may use bathroom in room without supervision. 10. Phone: Hospital phone use at discretion of nursing staff. 11. Due to VOLUNTARY status, if patient wishes to leave [facility], staff will contact [facility] Crisis Screener ([phone]) and On-Call Supervisor Wall Mirror Department ([phone]) as soon as possible. In the event of elopement, notify [facility] Police ([phone]). Patient is currently voluntarily at [facility] and seeking inpatient admission when a bed becomes available. [facility] Frontline Pulmonary Nurse Practitioner will continue seeking placement. Please contact the Bread Wrapping Machine Feeder Supervisor Wall Mirror Department ([phone]) and [facility] Pulmonary Nurse Practitioner ([phone]) for any needed changes in the Safety Plan. Safety plan has been provided to interdepartmental care team.
--- NOTE | 2020-05-22 09:04 | CMSP_ITS ---
- If Service Date Differs Date of service: 05/22/20 Time of Service: 09:04 Care Management Safety Plan Status: Voluntary VOLUNTARY FOR INPATIENT PSYCHIATRIC STABILIZATION. Lady is a 34 year old female who receives services through the IDDS program at [facility]. She was brought to the ED after taking an intentional overdose of her own medications. Lady has a long psychiatric history. [facility] has determined that she meets criteria for inpatient psychiatric stabilization. [facility] [place] and [facility] for consideration. [facility] to coordinate placement, with support of CM. Justice [facility] IDDS stated that there is bed availability at [facility] on 06/03/20. CM expressed concern regarding the expectation for Lady to remain at [facility] for this extended period of time. Staff expressed concern over Lady flicking her fingers, which is a warning sign for escalation in behavior. Lady will be accompanied by [facility] staff, one on one, for the duration of this hospital stay, as much as possible. [facility] staff is instructed by their drapery supervisor that they can sleep when Lady is sleeping, in the room with her. Lady has required redirection from the [facility] staff, who are mostly known to her. A safety huddle was held at 3pm with Isabel MOTA, Lillian PEDERSEN, Shae [facility], Lady RN and Nimisha, Nursing drapery supervisor. Based on Lady's behavior today, changes have been made to the Safety Plan. Safety plan has been established with patient, and care team, to adhere to patient goals, identify restrictions based on behavioral status, address nutrition, and determine allowed personal belongings, tools for hygiene and personal care. Determine level of activity including ambulation, level of supervision, visitors, and determine privileges based on behaviors and level of engagement by pt. SAFETY PLAN: 1. Will remain on suicide precautions. In Paper Clothes. Permitted to have own sports bra and underwear. 2. Will remain in room under direct supervision of one-on-one staff at all times provided by CPSO; MEGAN, NAHUM paper coating machine operator. 3. May have paper cups, plates, finger foods as well as a metal spoon with which to eat meals. 4. Follow [facility] Management of the Admitted Behavioral Health Patient policy. 5. May shower up to 3 times a day at discretion of nursing staff, pending staff availability 6. No personal belongings. Watch and knee brace removed following aggressive outburst. Decisions regarding their return will be explored at tomorrow's huddle. 7. Visitors: Limited to [facility] IDDS Program staff. Reclining chair permitted in room for IDDS staff. 8. Activities: Television and remote permitted, cards, coloring books, crayons, fan, and other activities at nursing discretion. Music tablet permitted for use of calming music when television is turned off at night, to promote better sleep- also at nursing discretion. 9. Bathroom privileges: may use bathroom in room without supervision. 10. Phone: Hospital phone use at discretion of nursing staff. 11. Due to VOLUNTARY status, if patient wishes to leave [facility], staff will contact [facility] Crisis Screener ([phone]) and On-Call Product/Industry Consultant ([phone]) as soon as possible. In the event of elopement, notify [facility] Police ([phone]). Patient is currently voluntarily at [facility] and seeking inpatient admission when a bed becomes available. [facility] Frontline Condominium Property Manager will continue seeking placement. Please contact the Benzene Worker Product/Industry Consultant ([phone]) and [facility] Condominium Property Manager ([phone]) for any needed changes in the Safety Plan. Safety plan has been provided to interdepartmental care team.
--- NOTE | 2020-05-22 09:04 | PDOC.CMSAFE ---
- If Service Date Differs Date of service: 05/22/20 Time of Service: 09:04 Care Management Safety Plan Status: Voluntary VOLUNTARY FOR INPATIENT PSYCHIATRIC STABILIZATION. Lady is a 34 year old female who receives services through the IDDS program at [facility]. She was brought to the ED after taking an intentional overdose of her own medications. Lady has a long psychiatric history. [facility] has determined that she meets criteria for inpatient psychiatric stabilization. [facility] [place] and [facility] for consideration. [facility] to coordinate placement, with support of CM. Justice [facility] IDDS stated that there is bed availability at [facility] on 06/03/20. CM expressed concern regarding the expectation for Lady to remain at [facility] for this extended period of time. Staff expressed concern over Lady flicking her fingers, which is a warning sign for escalation in behavior. Lady will be accompanied by [facility] staff, one on one, for the duration of this hospital stay, as much as possible. [facility] staff is instructed by their dry starch supervisor that they can sleep when Lady is sleeping, in the room with her. Lady has required redirection from the [facility] staff, who are mostly known to her. A safety huddle was held at 3pm with Isabel MOTA, Lillian PEDERSEN, Shae [facility], Lady RN and Nimisha, Nursing dry starch supervisor. Based on Lady's behavior today, changes have been made to the Safety Plan. Safety plan has been established with patient, and care team, to adhere to patient goals, identify restrictions based on behavioral status, address nutrition, and determine allowed personal belongings, tools for hygiene and personal care. Determine level of activity including ambulation, level of supervision, visitors, and determine privileges based on behaviors and level of engagement by pt. SAFETY PLAN: 1. Will remain on suicide precautions. In Paper Clothes. Permitted to have own sports bra and underwear. 2. Will remain in room under direct supervision of one-on-one staff at all times provided by CPSO; MEGAN, NAHUM intelligence group supervisor. 3. May have paper cups, plates, finger foods as well as a metal spoon with which to eat meals. 4. Follow [facility] Management of the Admitted Behavioral Health Patient policy. 5. May shower up to 3 times a day at discretion of nursing staff, pending staff availability 6. No personal belongings. Watch and knee brace removed following aggressive outburst. Decisions regarding their return will be explored at tomorrow's huddle. 7. Visitors: Limited to [facility] IDDS Program staff. Reclining chair permitted in room for IDDS staff. 8. Activities: Television and remote permitted, cards, coloring books, crayons, fan, and other activities at nursing discretion. Music tablet permitted for use of calming music when television is turned off at night, to promote better sleep- also at nursing discretion. 9. Bathroom privileges: may use bathroom in room without supervision. 10. Phone: Hospital phone use at discretion of nursing staff. 11. Due to VOLUNTARY status, if patient wishes to leave [facility], staff will contact [facility] Crisis Screener ([phone]) and On-Call Environment Coordinator ([phone]) as soon as possible. In the event of elopement, notify [facility] Police ([phone]). Patient is currently voluntarily at [facility] and seeking inpatient admission when a bed becomes available. [facility] Frontline Tool Room Machinist will continue seeking placement. Please contact the Sub Plant Manager Environment Coordinator ([phone]) and [facility] Tool Room Machinist ([phone]) for any needed changes in the Safety Plan. Safety plan has been provided to interdepartmental care team.
[2020-05-22] MEDS: diazePAM 5 MG TAB PO (09:22)
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
[2020-05-22] MEDS: ARIPiprazole 15 MG TAB PO (12:36)
[2020-05-22] MEDS: FLUoxetine 10 MG TAB 30 MG PO (12:36)
--- NOTE | 2020-05-22 14:18 | W.PM.PROGNOT ---
Date of Service Date of service: 05/22/20 Time of Service: 14:15 Assessment and Plan Assessment and plan (1) Aggressive behavior: Status: Chronic Assessment and plan: discussed physical restraints for protection of patient and oral medication for agitation and she is only agreeable to take injectable medication for symptoms of severe agitation and aggressive behaviors leading to self harm. haldol 5mg benadryl 50 and ativan 2 mg IM given after she declines oral medication. no physical restraint applied as she agreed to stop self harm while awaiting injection. continue cpso and safety plan 1500- patient is reassessed post administration of haldol/benadryl/ativan and is now calm and cooperative. she denies ideas of self harm and continues to agree not to act out. she is c/o right hand pain and will be imaged when staff feel it is safe to do so. no obvious deformity. good pulse and sensation. able to make fist and squeeze. (2) Left knee pain: Status: Acute Assessment and plan: contused from self harm with xray was negative. anticipate increased pain and swelling as she punched it multiple times today. consider re-imaging but d/t mechanism of injury unlikely to have acute fracture and injury most likely contusion. continue ice, apap, volteran gel. (3) Right hand pain: Status: Acute Assessment and plan: punched wall and knee multiple times swelling with no obvious deformity xray when safe to do so. ice apap offered. discussed with Dr Lo Subjective Subjective Interval history since last seen: patient crying, upset about management of left knee pain and proceeded to rip her clothes off, her knee brace off which she threw across the room. punching her knee, punching the wall, all multiple times. offered oral valium which she declines. discussed physical restraints to prevent further self harm and patient is agreeable to receive ativan/haldol and benadryl IM for symptoms of severe agitation leading to her self harm also she continues to punch herself hand wall. after further discussion patient agreeable to stop self harm while awaiting injectable medication. She stopped hitting and punching and she was again offered PO which she declines and requests as injectable form. cpso and mental health remain at bedside. patient has now stopped punching and agrees to stop for now. Exam Const General: acute distress severe (emotional), anxious and disheveled Resp Effort & Inspection: normal respiratory effort (slightly tachypneic but no respiratory distress) Extrem Right upper extremity: hand (swelling over MCP joints 4-3-2, no obvious deformity, full ROM to wrist ) Details: normal ROM of fingers Objective Last Vital Signs Temp 36.1 C L 05/22/20 06:59 Pulse 116 H 05/22/20 06:59 Resp 18 05/22/20 06:59 BP 94/70 L 05/22/20 06:59 Pulse Ox 98 05/22/20 06:59
[2020-05-22] MEDS: LORazepam 2 MG/ML VIAL IM (14:26)
[2020-05-22] MEDS: Haloperidol 5 MG/ML VIAL IM (14:26)
[2020-05-22] MEDS: diphenhydrAMINE 50 MG/ML VIAL IM (14:26)
[2020-05-22 14:48] LABS: Bilirubin Negative (Negative); Blood Negative (Negative); Clarity Clear (Clear); Glucose Negative (Negative); Ketones Negative (Negative); Leukocyte Esterase Negative (Negative); Nitrite Negative (Negative); Specific Gravity 1.015 (1.005-1.025); Urobilinogen 0.2 EU/dL (Up TO 0.2)
--- NOTE | 2020-05-22 15:30 | DI.RAD_ITS ---
EXAM: XR HAND RT COMPLETE CLINICAL HISTORY: pain, trauma, punched wall multiple times. TECHNIQUE: 2D digital imaging was performed. COMPARISON: CR LEFT HAND COMPLETE from 12/24/2014 FINDINGS: There is no evidence of acute fracture nor dislocation. No abnormal soft tissue calcifications. No radiopaque foreign body. IMPRESSION: DATA REPOSITORY: RADIATION DOSE DELIVERED:
[2020-05-22 22:10] VITALS: BP 103/71; PULSE 93; RESP 18; TEMP 36; O2SAT 96
[2020-05-23 07:47] VITALS: BP 114/80; PULSE 99; RESP 18; TEMP 36.1; O2SAT 98
[2020-05-23] MEDS: ARIPiprazole 15 MG TAB PO (07:48)
[2020-05-23] MEDS: diazePAM 2 MG TAB PO ×3 (07:48→20:07)
[2020-05-23] MEDS: Diclofenac 1% Gel 100 GM TUBE TP ×4 (07:49→20:07)
[2020-05-23] MEDS: FLUoxetine 10 MG TAB 30 MG PO (07:49)
[2020-05-23] MEDS: Insulin Aspart 300 UNITS/3 ML PEN SC ×4 (07:50→22:25)
[2020-05-23] MEDS: Magnesium Oxide 400 MG TAB PO ×2 (07:50→20:08)
[2020-05-23] MEDS: diazePAM 5 MG TAB PO ×2 (09:01→17:39)
--- NOTE | 2020-05-23 12:54 | CMPROGNOTE_ITS ---
- If Service Date Differs Date of service: 05/23/20 Time of Service: 12:54 Care Management Progress Note Lady is a 34 year old female who receives services through the IDDS program at [facility]. She was brought to the ED after taking an intentional overdose of her own medications. Lady has a long psychiatric history. [facility] has determined that she meets criteria for inpatient psychiatric stabilization. A referral was sent to Maureen Humphries and ANDREW early in the week. Today CM also sent a referral to [facility] as they now have bed availabilty. [facility] to coordinate placement, with support of CM. Lady continues to struggle to maintain control of her emotions and behavior. She has had several episodes today where she has bitten her arm and punched the wall. She has received PRN medication to help with this. Lady's safety plan reflects these behaviors and she is still not allowed to have her watch or her brace or, at times, the television. When met with Lady she was tearful and had difficulty maintaining eye contact. She shared that she couldn't stop looking up and she was constantly lifting her arms up and flicking the fingers on both hands. She appeared quite distressed. Efforts to redirect her were unsuccessful until her lunch tray arrived. While eating, she was able to focus for brief periods. In addition to the 2 referrals previously sent for Lady, a new referral was sent to [facility] which has just opened up to admissions. Shae from [facility] is waiting for a follow up call regarding the referral. VOLUNTARY FOR INPATIENT PSYCHIATRIC STABILIZATION. A safety huddle was held at 2pm with Alexa MOTA, Lillian PEDERSEN, Shae [facility], Yevgeniy [facility], Joy RN and Lauren, Nursing home restoration service supervisor. Based on Lady's behavior today, changes have been made to the Safety Plan. The use of a weighted blanket for comfort was added to the Safety Plan when available. Safety plan has been established with patient, and care team, to adhere to patient goals, identify restrictions based on behavioral status, address nut rition, and determine allowed personal belongings, tools for hygiene and personal care. Determine level of activity including ambulation, level of supervision, visitors, and determine privileges based on behaviors and level of engagement by pt. SAFETY PLAN: 1. Will remain on suicide precautions. In Paper Clothes. Permitted to have own sports bra and underwear. 2. Will remain in room under direct supervision of one-on-one staff at all times provided by [employer]; MEGAN, SOCIAL SERVICE LIAISON wafer polishing lead worker. 3. May have paper cups, plates, finger foods as well as a metal spoon with which to eat meals. 4. Follow [facility] Management of the Admitted Behavioral Health Patient policy. 5. May shower up to 3 times a day at discretion of nursing staff, pending staff availability 6. No personal belongings. Watch and knee brace continue to be made unavailable to Lady based on today's behaviors. Decisions regarding their return will be explored at tomorrow's huddle. Lady may use a weighted blanket for comfort when available. 7. Visitors: Limited to [facility] IDDS Program staff. Reclining chair permitted in room for IDDS staff. 8. Activities: Television and remote permitted when behaviors warrant that privilege per nursing discretion. Cards, coloring books, crayons, fan, and other activities at nursing discretion. Music tablet permitted for use of calming music when television is turned off at night, to promote better sleep- also at nursing discretion. 9. Bathroom privileges: may use bathroom in room without supervision. 10. Phone: Hospital phone use at discretion of nursing staff. 11. Due to VOLUNTARY status, if patient wishes to leave [facility], staff will contact [facility] Crisis Screener ([phone]) and On-Call High School Science Teacher ([phone]) as soon as possible. In the event of elopement, notify [facility] Police ([phone]). Patient is currently voluntarily at [facility] and seeking inpatient admission when a bed becomes available. [facility] Frontline Recycling Program Manager will continue seeking placement. Please contact the Application Coordinator High School Science Teacher ([phone]) and [facility] Recycling Program Manager ([phone]) for any needed changes in the Safety Plan. Safety plan has been provided to interdepartmental care team.
--- NOTE | 2020-05-23 12:57 | CMSP_ITS ---
- If Service Date Differs Date of service: 05/23/20 Time of Service: 12:57 Care Management Safety Plan Status: Voluntary Lady is a 34 year old female who receives services through the IDDS program at [facility]. She was brought to the ED after taking an intentional overdose of her own medications. Lady has a long psychiatric history. [facility] has determined that she meets criteria for inpatient psychiatric stabilization. A referral was sent to Maureen Humphries , [facility] and today, to [facility]. [facility] to coordinate placement, with support of CM. Justice [facility] IDDS stated that there is bed availability at [facility] on 06/03/20. CM expressed concern regarding the expectation for Lady to remain at [facility] for this extended period of time. Staff expressed concern over Lady flicking her fingers, which is a warning sign for escalation in behavior. Lady will be accompanied by [facility] staff, one on one, for the duration of this hospital stay, as much as possible. [facility] staff is instructed by their smoke control supervisor that they can sleep when Lady is sleeping, in the room with her. Lady has required redirection from the [facility] staff, who are mostly known to her. A safety huddle was held at 2pm with Alexa MOTA, Lillian PEDERSEN, Shae [facility], Yevgeniy [facility], Joy RN and Lauren, Nursing smoke control supervisor. Based on Lady's behavior today, changes have been made to the Safety Plan. Safety plan has been established with patient, and care team, to adhere to patient goals, identify restrictions based on behavioral status, address nutrition, and determine allowed personal belongings, tools for hygiene and personal care. Determine level of activity including ambulation, level of supervision, visitors, and determine privileges based on behaviors and level of engagement by pt. SAFETY PLAN: 1. Will remain on suicide precautions. In Paper Clothes. Permitted to have own sports bra and underwear. 2. Will remain in room under direct supervision of one-on-one staff at all times provided by [employer]; MEGAN, NAHUM grain operator. 3. May have paper cups, plates, finger foods as well as a metal spoon with which to eat meals. 4. Follow [facility] Management of the Admitted Behavioral Health Patient policy. 5. May shower up to 3 times a day at discretion of nursing staff, pending staff availability 6. No personal belongings. Watch and knee brace continue to be made unavailable to Lady based on today's behaviors. Decisions regarding their return will be explored at tomorrow's huddle. Lady may use a weighted blanket for comfort when available. 7. Visitors: Limited to [facility] IDDS Program staff. Reclining chair permitted in room for IDDS staff. 8. Activities: Television and remote permitted when behaviors warrant that privilege per nursing discretion. Cards, coloring books, crayons, fan, and other activities at nursing discretion. Music tablet permitted for use of calming music when television is turned off at night, to promote better sleep- also at nursing discretion. 9. Bathroom privileges: may use bathroom in room without supervision. 10. Phone: Hospital phone use at discretion of nursing staff. 11. Due to VOLUNTARY status, if patient wishes to leave [facility], staff will contact [facility] Crisis Screener ([phone]) and On-Call Car Salter ([phone]) as soon as possible. In the event of elopement, notify [facility] Police ([phone]). Patient is currently voluntarily at [facility] and seeking inpatient admission when a bed becomes available. [facility] Frontline Comprehensive Ophthalmologist will continue seeking placement. Please contact the Golf Coach Car Salter ([phone]) and [facility] Comprehensive Ophthalmologist ([phone]) for any needed changes in the Safety Plan. Safety plan has been provided to interdepartmental care team. cc:
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
[2020-05-23 15:45] VITALS: BP 120/81; PULSE 91; RESP 17; TEMP 36.4; O2SAT 97
[2020-05-24 07:39] VITALS: BP 107/63; PULSE 88; RESP 18; TEMP 36; O2SAT 99
[2020-05-24] MEDS: FLUoxetine 10 MG TAB 30 MG PO (07:45)
[2020-05-24] MEDS: ARIPiprazole 15 MG TAB PO (07:46)
[2020-05-24] MEDS: diazePAM 2 MG TAB PO ×3 (07:46→19:58)
[2020-05-24] MEDS: Magnesium Oxide 400 MG TAB PO ×2 (07:46→19:58)
[2020-05-24] MEDS: Insulin Aspart 300 UNITS/3 ML PEN SC ×4 (08:22→21:13)
[2020-05-24] MEDS: Diclofenac 1% Gel 100 GM TUBE TP ×3 (09:52→19:58)
[2020-05-24] MEDS: diazePAM 5 MG TAB PO ×2 (10:45→18:34)
--- NOTE | 2020-05-24 13:12 | PDOC.CMSAFE ---
- If Service Date Differs Date of service: 05/24/20 Time of Service: 13:12 Care Management Safety Plan Status: Voluntary Lady is a 34 year old female who receives services through the IDDS program at [facility]. She was brought to the ED after taking an intentional overdose of her own medications. Lady has a long psychiatric history. [facility] has determined that she meets criteria for inpatient psychiatric stabilization. A referral was sent to Maureen Humphries , [facility] and today, to [facility]. [facility] to coordinate placement, with support of CM. Justice [facility] IDDS stated that there is bed availability at [facility] on 06/03/20. CM expressed concern regarding the expectation for Lady to remain at [facility] for this extended period of time. Staff expressed concern over Lady flicking her fingers, which is a warning sign for escalation in behavior. Lady will be accompanied by [facility] staff, one on one, for the duration of this hospital stay, as much as possible. [facility] staff is instructed by their tire room supervisor that they can sleep when Lady is sleeping, in the room with her. Lady has required redirection from the [facility] staff, who are mostly known to her. Voluntary for Inpatient Psychiatric Stabilization A safety huddle was held at 2pm with Shanelle MOTA, Lillian PEDERSEN, Shae [facility], Yevgeniy [facility], Rebecca PATINO and Lauren, Nursing tire room supervisor. Based on Lady's behavior today, changes have been made to the Safety Plan. The ability for Lady to wear her own clothing was approved and added to the Safety plan. Safety plan has been established with patient, and care team, to adhere to patient goals, identify restrictions based on behavioral status, address nutrition, and determine allowed personal belongings, tools for hygiene and personal care. Determine level of activity including ambulation, level of supervision, visitors, and determine privileges based on behaviors and level of engagement by pt. SAFETY PLAN: 1. Will remain on suicide precautions. She may wear her own clothing as long as there are no strings or designs that can result in self-harm. 2. Will remain in room under direct supervision of one-on-one staff at all times provided by [employer]; MEGAN, MULTIFOCAL LENS ASSEMBLER head scorer. 3. May have paper cups, plates, finger foods as well as a metal spoon with which to eat meals. 4. Follow [facility] Management of the Admitted Behavioral Health Patient policy. 5. May shower up to 3 times a day as a therapeutic intervention. Efforts should be made to space the showers out during the course of the day, such as one per shift. 6. No personal belongings. Watch and knee brace continue to be made unavailable to Lady based on current behaviors. Decisions regarding their return will be explored daily. Lady may use a weighted blanket for comfort when available. 7. Visitors: Limited to [facility] IDDS Program staff. Reclining chair permitted in room for IDDS staff. 8. Activities: Television and remote permitted when behaviors warrant that privilege per nursing discretion. Cards, coloring books, crayons, fan, and other activities at nursing discretion. Music tablet permitted for use of calming music when television is turned off at night, to promote better sleep- also at nursing discretion. 9. Bathroom privileges: may use bathroom in room without supervision. 10. Phone: Hospital phone use at discretion of nursing staff. 11. Due to VOLUNTARY status, if patient wishes to leave [facility], staff will contact [facility] Crisis Screener ([phone]) and On-Call Propulsion Machinery Service Engineer ([phone]) as soon as possible. In the event of elopement, notify [facility] Police ([phone]). Patient is currently voluntarily at [facility] and seeking inpatient admission when a bed becomes available. [facility] Frontline Talent Acquisition Sourcer will continue seeking placement. Please contact the Geotechnical Engineering Technician Propulsion Machinery Service Engineer ([phone]) and [facility] Talent Acquisition Sourcer ([phone]) for any needed changes in the Safety Plan. Safety plan has been provided to interdepartmental care team.
--- NOTE | 2020-05-24 13:13 | PDOC.CMPRO ---
- If Service Date Differs Date of service: 05/24/20 Time of Service: 13:13 Care Management Progress Note Lady is a 34 year old female who receives services through the IDDS program at [facility]. She was brought to the ED after taking an intentional overdose of her own medications. Lady has a long psychiatric history. [facility] has determined that she meets criteria for inpatient psychiatric stabilization. A referral was sent to Maureen Humphries and [facility] early in the week. Today also sent a referral to [facility] as they now have bed availabilty. [facility] to coordinate placement, with support of CM. Lady has again had difficulties with emotional control today. She has stated several time that she wants to kill herself and has also been focusing on her father and missing him. Lady has been restless and pacing. She has had a few episodes of biting but quickly was able to stop. Lady has been allowed to wear cloth t-shirts and will be allowed to have her own sweatpants and/or leggings. She was also provided with a weighted blanket in the hopes that it can soothe her when she is restless and upset. VOLUNTARY FOR INPATIENT PSYCHIATRIC STABILIZATION. A safety huddle was held at 2pm with Shanelle MOTA, Lillian PEDERSEN, Shae [facility], Yevgeniy [facility], Rebecca PATINO and Lauren, Nursing grounds maintenance supervisor. Based on Lady's behavior today, changes have been made to the Safety Plan. The ability for Lady to wear her own clothing was approved and added to the Safety plan. Safety plan has been established with patient, and care team, to adhere to patient goals, identify restrictions based on behavioral status, address nutrition, and determine allowed personal belongings, tools for hygiene and personal care. Determine level of activity including ambulation, level of supervision, visitors, and determine privileges based on behaviors and level of engagement by pt. SAFETY PLAN: 1. Will remain on suicide precautions. She may wear her own clothing as long as there are no strings or designs that can result in self-harm. 2. Will remain in room under direct supervision of one-on-one staff at all times provided by [employer]; MEGAN, STRAIGHTENING MACHINE FEEDER shellfish sorter. 3. May have paper cups, plates, finger foods as well as a metal spoon with which to eat meals. 4. Follow [facility] Management of the Admitted Behavioral Health Patient policy. 5. May shower up to 3 times a day as a therapeutic intervention. Efforts should be made to space the showers out during the course of the day, such as one per shift. 6. No personal belongings. Watch and knee brace continue to be made unavailable to Lady based on current behaviors. Decisions regarding their return will be explored daily. Lady may use a weighted blanket for comfort when available. 7. Visitors: Limited to [facility] IDDS Program staff. Reclining chair permitted in room for IDDS staff. 8. Activities: Television and remote permitted when behaviors warrant that privilege per nursing discretion. Cards, coloring books, crayons, fan, and other activities at nursing discretion. Music tablet permitted for use of calming music when television is turned off at night, to promote better sleep- also at nursing discretion. 9. Bathroom privileges: may use bathroom in room without supervision. 10. Phone: Hospital phone use at discretion of nursing staff. 11. Due to VOLUNTARY status, if patient wishes to leave [facility], staff will contact [facility] Crisis Screener ([phone]) and On-Call Shactor Helper ([phone]) as soon as possible. In the event of elopement, notify [facility] Police ([phone]). Patient is currently voluntarily at [facility] and seeking inpatient admission when a bed becomes available. [facility] Frontline Application Penetration Tester will continue seeking placement. Please contact the Driver'S Education Instructor Shactor Helper ([phone]) and [facility] Application Penetration Tester ([phone]) for any needed changes in the Safety Plan. Safety plan has been provided to interdepartmental care team.
--- NOTE | 2020-05-24 13:21 | NUR.NOTE ---
Patient is in a calm manor, she just ate. Says she feels herself getting anxious. PT also stating, repeatedly, that she wants to kill herself. Nursing Note:
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
[2020-05-24 19:50] VITALS: BP 136/77; PULSE 98; RESP 17; TEMP 36.8; O2SAT 100
[2020-05-24] MEDS: traZODone 100 MG TAB PO (21:12)
[2020-05-25 07:52] VITALS: BP 107/79; PULSE 99; RESP 17; TEMP 36.8; O2SAT 96
[2020-05-25] MEDS: Magnesium Oxide 400 MG TAB PO ×2 (08:04→20:45)
[2020-05-25] MEDS: ARIPiprazole 15 MG TAB PO (08:04)
[2020-05-25] MEDS: diazePAM 2 MG TAB PO ×3 (08:04→20:45)
[2020-05-25] MEDS: Insulin Aspart 300 UNITS/3 ML PEN SC ×3 (08:05→21:42)
[2020-05-25] MEDS: FLUoxetine 10 MG TAB 30 MG PO (08:05)
[2020-05-25] MEDS: Diclofenac 1% Gel 100 GM TUBE TP ×3 (08:06→20:45)
[2020-05-25] MEDS: diazePAM 5 MG TAB PO ×2 (10:03→16:07)
[2020-05-25 12:55] VITALS: BP 108/81; PULSE 110; RESP 18; TEMP 36.3; O2SAT 100
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
[2020-05-25] MEDS: Lidocaine 5% Patch 1 PATCH TP (16:00)
[2020-05-25] MEDS: Patch Removal 1 EACH TP (18:52)
--- NOTE | 2020-05-25 20:12 | CMSP_ITS ---
- If Service Date Differs Date of service: 05/25/20 Time of Service: 20:12 Care Management Safety Plan Status: Voluntary Status: Voluntary Lady is a 34 year old female who receives services through the IDDS program at [facility]. She was brought to the ED on 05/18/20 after taking an intentional overdose of her own medications. She remains at [facility] awaiting a psych placement. Justice [facility] IDDS stated that there is bed availability at [facility] on 06/03/20. CM expressed concern regarding the expectation for Lady to remain at [facility] for this extended period of time. Staff expressed concern over Lady flicking her fingers, which is a warning sign for escalation in behavior. Lady will be accompanied by [facility] staff, one on one, for the duration of this hospital stay, as much as possible. [facility] staff is instructed by their traffic personnel supervisor that they can sleep when Lady is sleeping, in the room with her. Lady has required redirection from the [facility] staff, who are mostly known to her. Voluntary for Inpatient Psychiatric Stabilization A safety huddle was held at 4 pm with Alexa Carballo RN, Shae [facility], Jen [facility], and NUVIA Crain. Lauren, Nursing Sports Trainer, was advised of the huddle but was unable to attend. Shae advises Lady believes in the Front Desk Representative and asks to bring her a soft felt Easter basket with diabetic candy and other Easter related items. These items are to be placed in the room by staff while Lady is asleep. Safety plan has been established with patient, and care team, to adhere to patient goals, identify restrictions based on behavioral status, address nutrition, and determine allowed personal belongings, tools for hygiene and personal care. Determine level of activity including ambulation, level of supervision, visitors, and determine privileges based on behaviors and level of engagement by pt. SAFETY PLAN: 1. Will remain on suicide precautions. She may wear her own clothing as long as there are no strings or designs that can result in self-harm. 2. Will remain in room under direct supervision of one-on-one staff at all times provided by [employer]; MEGAN, NAHUM powdered metal supervisor. 3. May have paper cups, plates, finger foods as well as a metal spoon with which to eat meals. 4. Follow [facility] Management of the Admitted Behavioral Health Patient policy. 5. May shower up to 3 times a day as a therapeutic intervention. Efforts should be made to space the showers out during the course of the day, such as one per shift. 6. No personal belongings. Watch and knee brace continue to be made unavailable to Lady based on current behaviors. Decisions regarding their return will be explored daily. Lady may use a weighted blanket for comfort when available. 7. Visitors: Limited to [facility] IDDS Program staff. Reclining chair permitted in room for IDDS staff. 8. Activities: Television and remote permitted when behaviors warrant that privilege per nursing discretion. Cards, coloring books, crayons, fan, and other activities at nursing discretion. Music tablet permitted for use of calming music when television is turned off at night, to promote better sleep- also at nursing discretion. 9. Bathroom privileges: may use bathroom in room without supervision. 10. Phone: Hospital phone use at discretion of nursing staff. 11. Due to VOLUNTARY status, if patient wishes to leave [facility], staff will contact [facility] Crisis Screener ([phone]) and On-Call Rough Rib Grader ([phone]) as soon as possible. In the event of elopement, notify [place] [employer] Police ([phone]). Patient is currently voluntarily at [facility] and seeking inpatient admission when a bed becomes available. [facility] Frontline Window Shade Estimator will continue seeking placement. Please contact the Meat Carver Rough Rib Grader ([phone]) and [facility] Window Shade Estimator ([phone]) for any needed changes in the Safety Plan. Safety plan has been provided to interdepartmental care team.
--- NOTE | 2020-05-25 20:12 | PDOC.CMSAFE ---
- If Service Date Differs Date of service: 05/25/20 Time of Service: 20:12 Care Management Safety Plan Status: Voluntary Status: Voluntary Lady is a 34 year old female who receives services through the IDDS program at [facility] She was brought to the ED on 05/18/20 after taking an intentional overdose of her own medications. She remains at [facility] awaiting a psych placement. Justice [facility] IDDS stated that there is bed availability at [facility] on 06/03/20. CM expressed concern regarding the expectation for Lady to remain at [facility] for this extended period of time. Staff expressed concern over Lady flicking her fingers, which is a warning sign for escalation in behavior. Lady will be accompanied by [facility] staff, one on one, for the duration of this hospital stay, as much as possible. [facility] staff is instructed by their pipe supervisor that they can sleep when Lady is sleeping, in the room with her. Lady has required redirection from the [facility] staff, who are mostly known to her. Voluntary for Inpatient Psychiatric Stabilization A safety huddle was held at 4 pm with Alexa Carballo RN, Shae [facility], Jen [facility], and NUVIA Crain. Lauren, Nursing Journeyman Patternmaker, was advised of the huddle but was unable to attend. Shae advises Lady believes in the Plastic Molder and asks to bring her a soft felt Easter basket with diabetic candy and other Easter related items. These items are to be placed in the room by staff while Lady is asleep. Safety plan has been established with patient, and care team, to adhere to patient goals, identify restrictions based on behavioral status, address nutrition, and determine allowed personal belongings, tools for hygiene and personal care. Determine level of activity including ambulation, level of supervision, visitors, and determine privileges based on behaviors and level of engagement by pt. SAFETY PLAN: 1. Will remain on suicide precautions. She may wear her own clothing as long as there are no strings or designs that can result in self-harm. 2. Will remain in room under direct supervision of one-on-one staff at all times provided by C[employer]; MEGAN, NAHUM straight slicing machine operator. 3. May have paper cups, plates, finger foods as well as a metal spoon with which to eat meals. 4. Follow [facility] Management of the Admitted Behavioral Health Patient policy. 5. May shower up to 3 times a day as a therapeutic intervention. Efforts should be made to space the showers out during the course of the day, such as one per shift. 6. No personal belongings. Watch and knee brace continue to be made unavailable to Lady based on current behaviors. Decisions regarding their return will be explored daily. Lady may use a weighted blanket for comfort when available. 7. Visitors: Limited to [facility] IDDS Program staff. Reclining chair permitted in room for IDDS staff. 8. Activities: Television and remote permitted when behaviors warrant that privilege per nursing discretion. Cards, coloring books, crayons, fan, and other activities at nursing discretion. Music tablet permitted for use of calming music when television is turned off at night, to promote better sleep- also at nursing discretion. 9. Bathroom privileges: may use bathroom in room without supervision. 10. Phone: Hospital phone use at discretion of nursing staff. 11. Due to VOLUNTARY status, if patient wishes to leave [facility], staff will contact [facility] Crisis Screener ([phone]) and On-Call Jeep Mechanic ([phone]) as soon as possible. In the event of elopement, notify [employer] Police ([phone]). Patient is currently voluntarily at [facility] and seeking inpatient admission when a bed becomes available. [facility] Frontline Auto Body Repairer will continue seeking placement. Please contact the Ship Worker Jeep Mechanic ([phone]) and [facility] Auto Body Repairer ([phone]) for any needed changes in the Safety Plan. Safety plan has been provided to interdepartmental care team.
[2020-05-25] MEDS: traZODone 100 MG TAB PO (21:43)
[2020-05-26] MEDS: Insulin Aspart 300 UNITS/3 ML PEN SC ×3 (07:47→18:40)
[2020-05-26] MEDS: diazePAM 5 MG TAB PO ×3 (07:48→18:40)
[2020-05-26 08:07] VITALS: BP 129/84; PULSE 89; RESP 18; TEMP 36.5; O2SAT 99
[2020-05-26] MEDS: Lidocaine 5% Patch 1 PATCH TP (09:49)
[2020-05-26] MEDS: Magnesium Oxide 400 MG TAB PO ×2 (09:51→19:42)
[2020-05-26] MEDS: ARIPiprazole 15 MG TAB PO (09:51)
[2020-05-26] MEDS: FLUoxetine 10 MG TAB 30 MG PO (09:52)
[2020-05-26] MEDS: diazePAM 2 MG TAB PO ×3 (09:52→19:41)
[2020-05-26] MEDS: Diclofenac 1% Gel 100 GM TUBE TP ×3 (12:06→19:41)
--- NOTE | 2020-05-26 13:33 | W.PM.PROGNOT ---
Date of Service Date of service: 05/26/20 Time of Service: 13:33 Assessment and Plan Assessment and plan (1) Aggressive behavior: Start date: 05/26/20 Start time: 13:34 Status: Chronic Assessment and plan: Slept most of the night doing well, behavior is well continue safety plan CPSO in place IDDS worker in place (2) Intentional drug overdose: Start date: 05/26/20 Start time: 13:35 Status: Resolved Assessment and plan: polypharmacy OD including Abilify, Guanfacine, Prozac, Pravastatin, Metformin, Trazodone, MVS, melatonin. She has been medically cleared and remains medically stable Psychiatrist spoke with hospitalist placed back on recommended medication in addition to trazadone. (3) Left knee pain: Start date: 05/26/20 Start time: 13:35 Status: Acute Assessment and plan: She has earned her knee brace back. She is getting lidoderm patches and voltaren gel for pain which is helpful (4) Right hand pain: Start date: 05/26/20 Start time: 13:36 Status: Acute Assessment and plan: After punching wall, swelling subsided. no fx or deformity, continue ice prn (5) Diabetes mellitus type 2, controlled: Start date: 05/26/20 Start time: 13:36 Status: Chronic Assessment and plan: Blood sugars elevated in 200's increase SSI to resistant, as elevated sugars can also have a role in patients behavior, Will continue to monitor. discussed with Dr Mccall Subjective Subjective Interval history since last seen: Slept most of the night, in a good mood today. Behavior is doing well. continue current managment. CPSO and IDDS worker. Exam Const General: cooperative, comfortable, no acute distress, acute distress severe (emotional), anxious and disheveled Nutritional Appearance: average body habitus Orientation: alert, awake and oriented x3 HENMT Head: normal to inspection, normocephalic and atraumatic Mouth: oral mucosae normal Resp Effort & Inspection: normal respiratory effort (slightly tachypneic but no respiratory distress) Cardio Rate: regular rate Rhythm: regular rhythm Skin General skin exam: no ecchymosis and erythema (and mild abrasions from friction, right forearm) Lesions: no lesions Rashes: no rashes Extrem General: normal to inspection and full ROM Right upper extremity: hand (swelling over MCP joints 4-3-2, no obvious deformity, full ROM to wrist ) Details: normal ROM of fingers Left lower extremity: knee (wearing knee brace) Details: tenderness and swelling Psych Appearance: disheveled Mental Status: mental status grossly normal Speech and Movement: restless Affect: indifferent Attitude: cooperative Thought Process: tangential Insight: limited Judgment: limited Objective Last Vital Signs Temp 36.5 C 05/26/20 08:07 Pulse 89 05/26/20 08:07 Resp 18 05/26/20 08:07 BP 129/84 05/26/20 08:07 Pulse Ox 99 05/26/20 08:07
[2020-05-26] MEDS: Acetaminophen 500 MG TAB 1000 MG PO (18:40)
--- NOTE | 2020-05-26 18:46 | CMSP_ITS ---
- If Service Date Differs Date of service: 05/26/20 Time of Service: 18:46 Care Management Safety Plan Status: Voluntary Lady is a 34 year old female who receives services through the IDDS program at [facility]. She was brought to the ED on 05/18/20 after taking an intentional overdose of her own medications. She remains at [facility] awaiting a psych placement. Justice [facility] IDDS stated that there is bed availability at [facility] on 06/03/20. CM expressed concern regarding the expectation for Lady to remain at [facility] for this extended period of time. Staff expressed concern over Lady flicking her fingers, which is a warning sign for escalation in behavior. Lady will be accompanied by [facility] staff, one on one, for the duration of this hospital stay, as much as possible. [facility] staff is instructed by their supervisor home restoration service that they can sleep when Lady is sleeping, in the room with her. Lady has required redirection from the [facility] staff, who are mostly known to her. Voluntary for Inpatient Psychiatric Stabilization A safety huddle was held at 1:15 pm pm with Danna Martinez RN, Shae [facility]Lauren, nursing supervisor home restoration service, and NUVIA Snyder. Safety plan has been established with patient, and care team, to adhere to patient goals, identify restrictions based on behavioral status, address nutrition, and determine allowed personal belongings, tools for hygiene and personal care. Determine level of activity including ambulation, level of supervision, visitors, and determine privileges based on behaviors and level of engagement by pt. SAFETY PLAN: 1. Will remain on suicide precautions. She may wear her own clothing as long as there are no strings or designs that can result in self-harm. 2. Will remain in room under direct supervision of one-on-one staff at all times provided by CPSO; MEGAN, NAHUM telephone surveyor. 3. May have paper cups, plates, finger foods as well as a metal spoon with which to eat meals. 4. Follow [facility] Management of the Admitted Behavioral Health Patient policy. 5. May shower up to 3 times a day as a therapeutic intervention. Efforts should be made to space the showers out during the course of the day, such as one per shift. 6. No personal belongings. Knee brace has been returned to Lady based on current behaviors. Lady may use a weighted blanket for comfort when available. 7. Visitors: Limited to [facility] IDDS Program staff. Reclining chair permitted in room for IDDS staff. 8. Activities: Television and remote permitted when behaviors warrant that privilege per nursing discretion. Cards, coloring books, crayons, fan, and other activities at nursing discretion. Music tablet permitted for use of calming music when television is turned off at night, to promote better sleep- also at nursing discretion. 9. Bathroom privileges: may use bathroom in room without supervision. 10. Phone: Hospital phone use at discretion of nursing staff. 11. Due to VOLUNTARY status, if patient wishes to leave [facility], staff will contact [facility] Crisis Screener ([phone]) and On-Call Rn Hemodialysis Charge ([phone]) as soon as possible. In the event of elopement, notify [facility] Police ([phone]). Patient is currently voluntarily at [facility] and seeking inpatient admission when a bed becomes available. [facility] Frontline Medical Transcriber will continue seeking placement. Please contact the Full Time Staff Interpreter Rn Hemodialysis Charge ([phone]) and [facility] Medical Transcriber ([phone]) for any needed changes in the Safety Plan. Safety plan has been provided to interdepartmental care team.
--- NOTE | 2020-05-26 18:49 | PDOC.CMPRO ---
- If Service Date Differs Date of service: 05/26/20 Time of Service: 18:49 Care Management Progress Note S/O: Lady had a very good day today. She was excited because it was Easter and the head char filter tank tender left her a basket (compliments of Shae from [facility]). In addition, the provider Pema and other staff members gave her gifts and treats. Her behavior last night and today earned her the privilege of wearing her knee brace and her weighted blanket has been returned to her. This afternoon Lady became a little weepy and asked to speak to . After talking for a while, Lady requested that she be allowed to take a shower to help her relax. This was readily agreed to. Lady is working hard to stay in control and is responding well to positive reinforcement from staff. P: No psychiatric bed placement is available for Lady at this time.
[2020-05-26] MEDS: Patch Removal 1 EACH TP (19:43)
[2020-05-26 19:50] VITALS: BP 112/73; PULSE 99; RESP 18; TEMP 36; O2SAT 99
--- NOTE | 2020-05-26 20:17 | NUR.NOTE ---
Nursing Note: pt called her sister and told her she had carrots for a snack. the sister asked to talk to someone and pt handed the phone to me and the sister states that the pt has called her many time today and she was concerned, she states the pts blood sugar was at 110 and then hours later it was 352, she said that carrots are bad for diabetes and we shouldn't be giving her that, also the pt complained that her supper wasn't good so they made her a PB and j which she shouldn't be having. nurse was busy with other patient, didn't have time to talk to the sister but i told her i would let the nurse know her concerns.
--- NOTE | 2020-05-26 20:27 | NUR.NOTE ---
Nursing Note: 1700H Patient has refused her dinner tray stating it's crap Patient requested for a peanut butter and jelly sandwich instead. Prior to dinner tray being served, patient's fingerstick taken was 110. Patient was allowed peanut butter and jelly sandwich. 1028H Patient later on was complaining feeling off and requested for fingerstick which was 353. Patient has now perseverated with her high blood sugar. 1840H Scheduled insulin given at this point to address this.
[2020-05-26] MEDS: traZODone 100 MG TAB PO (21:41)
[2020-05-27 09:35] VITALS: BP 108/71; PULSE 115; RESP 18; TEMP 36.2; O2SAT 100
[2020-05-27] MEDS: FLUoxetine 10 MG TAB 30 MG PO (09:55)
[2020-05-27] MEDS: diazePAM 2 MG TAB PO ×3 (09:56→19:12)
[2020-05-27] MEDS: ARIPiprazole 15 MG TAB PO (09:56)
[2020-05-27] MEDS: Magnesium Oxide 400 MG TAB PO ×2 (09:56→19:12)
[2020-05-27] MEDS: Lidocaine 5% Patch 1 PATCH TP (09:56)
[2020-05-27] MEDS: Diclofenac 1% Gel 100 GM TUBE TP ×4 (09:56→19:14)
[2020-05-27] MEDS: Insulin Aspart 300 UNITS/3 ML PEN SC ×3 (09:57→19:23)
[2020-05-27] MEDS: diazePAM 5 MG TAB PO (12:38)
--- NOTE | 2020-05-27 13:06 | NUR.NOTE ---
Patient stating, I want to punch the wall. And also stated multiple times I want to kill myself COLD TYPE ARTIST SWNursing Note:
--- NOTE | 2020-05-27 13:11 | NUR.NOTE ---
PT repeatedly saying she wants to kill herself Also said she intends on doing it with a knife. Nursing Note:
--- NOTE | 2020-05-27 17:06 | W.PM.PROGNOT ---
Date of Service Date of service: 05/27/20 Time of Service: 17:07 Assessment and Plan Assessment and plan (1) Aggressive behavior: Start date: 05/27/20 Start time: 17:18 Status: Chronic Assessment and plan: Slept most of the night doing well, behavior overall has been well this weekend continue safety plan CPSO in place IDDS worker in place Continue to look for placement (2) Left knee pain: Start date: 05/27/20 Start time: 17:19 Status: Acute Assessment and plan: She has earned her knee brace back. She is getting lidoderm patches and voltaren gel for pain which is helpful (3) Right hand pain: Start date: 05/27/20 Start time: 17:19 Status: Acute Assessment and plan: Doing well no deformity or edema at this time (4) Diabetes mellitus type 2, controlled: Start date: 05/27/20 Start time: 17:20 Status: Chronic Assessment and plan: Blood sugars elevated in 200's increase SSI to resistant, as elevated sugars can also have a role in patients behavior, Will continue to monitor. discussed with Dr Mccall Subjective Subjective Patient reports: no new complaints Interval history since last seen: Doing well no aggressive behavior Exam Const General: cooperative, comfortable, no acute distress, acute distress severe (emotional), anxious and disheveled Nutritional Appearance: average body habitus Orientation: alert, awake and oriented x3 HENMT Head: normal to inspection, normocephalic and atraumatic Mouth: oral mucosae normal Resp Effort & Inspection: normal respiratory effort (slightly tachypneic but no respiratory distress) Cardio Rate: regular rate Rhythm: regular rhythm Skin General skin exam: no ecchymosis and erythema (and mild abrasions from friction, right forearm) Lesions: no lesions Rashes: no rashes Extrem General: normal to inspection and full ROM Left lower extremity: knee (wearing knee brace) Details: tenderness and swelling Psych Appearance: disheveled Mental Status: mental status grossly normal Speech and Movement: restless Affect: indifferent Attitude: cooperative Thought Process: tangential Insight: limited Judgment: limited Objective Last Vital Signs Temp 36.2 C L 05/27/20 09:35 Pulse 115 H 05/27/20 09:35 Resp 18 05/27/20 09:35 BP 108/71 05/27/20 09:35 Pulse Ox 100 05/27/20 09:35
[2020-05-27 18:32] LABS: Source Nasal/Nares
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
--- NOTE | 2020-05-27 18:56 | CMDISCH_ITS ---
- If Service Date Differs Date of service: 05/27/20 Time of Service: 18:56 LACE Index Scoring Tool - Questions: Length of Stay (in days): 7 - 13 Acuity (Admit via E.D.?): Yes Comorbidities: Diabetes w/o Complication E.D. Visits: 3 - Answers: Total Score: 12 Risk of Readmission: High Risk Care Management Discharge Reason for Hospitalization: polypharmacy overdose, SI, depression Discharge Plan: Lady will transfer to [facility] via [facility], coordinated by NUVIA. She is happy to be going to a hospital who can offer her the support that she requires at this time. She will follow up with her IDDS supports upon discharge from their facility. CM notified her guardian of the discharge plan. Patient/Family Education Needs: Review discharge instructions with Lady's guardian, review expectations for inpatient psychiatric hospitalization, discussion of self care needs. Services Needed at Discharge: Psychiatric Facility ([facility]) - MH Services (Omit if N/A) Current MH Services: Other (IDDS client, 14/09 support)
[2020-05-27] MEDS: traZODone 100 MG TAB PO (19:11)
[2020-05-27 19:17] LABS: COVID-19 PCR Negative (Negative)
--- NOTE | 2020-06-04 15:24 | MHPN_ITS ---
Date of service: 05/26/20 Time of Service: 15:24 Mental Health Crisis Note Presenting Issue How did you arrive at the ED and why did you come: Pt is being seen today for a follow up assessment as she waits for a psychiatric hospital placement. Pt has been at [facility] since 05.18.2020. Precipitating Factors Pt denied SI and HI today. Disposition BEHAVIOR: Cooperative, engaged and using her skills well. Pt was excited to share what the Sue Lopez brought her. EYE CONTACT: Good MOOD: Excited that the Sue Lopez found her at the hospital. AFFECT: happy and smiling APPETITE: Pt is eating well. SLEEP(trouble falling/staying asleep: Pt reported sleeping well. Plan Pt is willing to engaged in lesser restrictive options and she is still endorsing a need for additional treatment. Pt will remain at [facility] with her supports form both [facility] and [facility] until placement is found or she can step down back to the community. There are no available beds today for her but [facility] on Pt to assess for Wednesday. Daily huddle was had and no issues or concerns were reported. Pt is aware that she can request [facility] crisis if she needs. Signature Clinician's Name/Title: Shae Wright MS, [facility] Emergency Services Clinician, [facility]
--- NOTE | 2020-06-04 15:28 | MHPN_ITS ---
Date of service: 05/27/20 Time of Service: 15:28 Mental Health Crisis Note Presenting Issue How did you arrive at the ED and why did you come: Pt is being seen today for a follow up assessment as she waits for a psychiatric hospital placement. Pt has been at [facility] since 05.18.2020. Precipitating Factors Pt denied SI and HI. There are no signs of delusions. Disposition BEHAVIOR: Pt is still in a good space today. She becomes excited to hear that she was accepted at [facility] this evening. She engaged well and appropriate through the day. EYE CONTACT: Pt makes good eye contact. MOOD: Pt is in a good mood today. AFFECT: Smiling and happy. APPETITE: Good appetite. SLEEP(trouble falling/staying asleep: No issues with sleep. Plan Pt is aware why she?s is at [facility]. She reports that she is using her coping skills and this is verified by her supports. She is aware that she can call [facility] crisis 14/09 if she is struggling or her support team through [facility] on weekdays. Pt will need a new screening tools soon as it has been a while since she has had these done. Until we can find placement and/or she can safety plan home. She is not wanting to go back to the crisis bed she came from and this is not available at this time due to construction. Her [facility] team however will ensure placement when she is discharged. Pt was accepted to [facility] this evening and left [facility] around 7pm. Signature Clinician's Name/Title: Shae Wright MS, [facility] Emergency Services Clinician, [facility]
== END 2020-05-27 19:34 | disposition short-term general hospital (02) | DRG 918 ==
LOC: ER 16:26 → ICU 16:28 → MS 05-20 17:25
PROVIDERS: General Practice; Internal Medicine; Nurse Practitioner Acute Care; Admitting Provider Internal Medicine; Emergency Provider Physician Assistant; PCP Family Medicine; Visit Provider Internal Medicine
DX: T43.592A Poisoning by other antipsychotics and neuroleptics, intentional self-harm, initial encounter (principal); R45.851 Suicidal ideations; T46.5X2A Poisoning by other antihypertensive drugs, intentional self-harm, initial encounter; T43.222A Poisoning by selective serotonin reuptake inhibitors, intentional self-harm, initial encounter; T46.6X2A Poisoning by antihyperlipidemic and antiarteriosclerotic drugs, intentional self-harm, initial encounter; T38.3X2A Poisoning by insulin and oral hypoglycemic [antidiabetic] drugs, intentional self-harm, initial encounter; T43.212A Poisoning by selective serotonin and norepinephrine reuptake inhibitors, intentional self-harm, initial encounter; Q86.0 Fetal alcohol syndrome (dysmorphic); R33.0 Drug induced retention of urine; R94.31 Abnormal electrocardiogram [ECG] [EKG]; E11.9 Type 2 diabetes mellitus without complications; M25.562 Pain in left knee; F91.1 Conduct disorder, childhood-onset type; M79.641 Pain in right hand; W22.01XA Walked into wall, initial encounter; F32.9 Major depressive disorder, single episode, unspecified; F90.9 Attention-deficit hyperactivity disorder, unspecified type; R25.1 Tremor, unspecified; F42.9 Obsessive-compulsive disorder, unspecified
CPT/HCPCS: 36415; 80048; 80053; 80307; 82550; 87635; 93005; 96361; 96365; 96366; 99223; 99233; 99239; 99291; 73130; 80320; 80329; 81003; 83605; 83735; 84484; 85025; 87081; 93010; J0610; J1200; J1630; J2060; J3360; J3490

== ENCOUNTER 2020-07-06 20:22 | Emergency (ER) | payer MEDICARE, MEDICAID, SELFPAY ==
--- NOTE | 2020-07-06 20:15 | RT.EKG_ITS ---
APPROVED REPORT Exam: Resting ECG Reason for Exam: INGESTION Patient Location: E HR:102 bpm ECG Measurements Heart Rate 102 AXIS WI 150 P 67 QRSd 89 QRS 80 QT 385 T 58 QTc 502 Conclusion Sinus tachycardia...rate> 99 Prolonged QT interval...QTc >495mS Normal [place] Otherwise normal ECG
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
[2020-07-06 20:25] VITALS: BP 108/77; PULSE 108; RESP 16; TEMP 37; O2SAT 97
[2020-07-06 21:18] LABS: Abs Immature Grans 0.02 10^3/uL (0.0-0.06); Absolute Basophil Count 0.02 10^3/uL (0.0-0.2); Absolute Eosinophil Count 2.03 10^3/uL (0.0-0.7); Absolute Lymphocyte Count 1.71 10^3/uL (1.2-3.4); Absolute Monocyte Count 0.47 10^3/uL (0.1-0.8); Absolute Neutrophil Count 4.94 10^3/uL (1.2-6.7); Basophils % 0.2; Eosinophils % 22.1; HCT 41.7 % (36.0-46.0); HGB 13.6 g/dL (11.2-15.7); Immature Grans % 0.2; Lymphocytes % 18.6; MCH 30.2 pg (27.0-33.0); MCHC 32.6 % (32.0-36.0); MCV 92.7 fL (80-95); MPV 9.9 fL (8.0-11.0); Monocytes % 5.1; Neutrophils % 53.8; Nucleated RBC 0 %; Platelet Count 217 10^3/uL (130-400); RDW 12.1 % (11.7-14.6); RDW-SD 41.2 fL; WBC 9.19 10^3/uL (4.4-10.8)
[2020-07-06 21:33] LABS: *AMPHETAMINES SCREEN URINE Negative (Negative); *BARBITURATES SCREEN URINE Negative (Negative); *BENZODIAZEPINES SCREEN URINE Negative (Negative); Cannabinoids THC Negative (Negative); Cocaine Screen,Urine Negative (Negative); METHADONE URINE SCREEN Negative (Negative); OPIATES URINE SCREEN Negative (Negative); Tricyclic Antidepressants Negative (Negative)
[2020-07-06 21:36] LABS: ALT 22 U/L (14-59); AST 17 U/L (15-37); Albumin 3.6 g/dL (3.4-5.0); Alkaline Phosphatase 51 U/L (46-116); Anion Gap 8.4 mmol/L (3-11); BUN 14 mg/dL (7-18); Bilirubin, Total 0.1 mg/dL (0.2-1.0); CO2 28.6 mmol/L (21.0-32.0); CREATININE 0.8 mg/dL (0.55-1.02); Calcium 8.7 mg/dL (8.5-10.1); Chloride 103 mmol/L (98-107); ETHANOL BLOOD < 3.0 mg/dL (<3); Glucose 153 mg/dL (74-106); Magnesium 1.9 mg/dL (1.8-2.4); Sodium 140 mmol/L (136-145); Total Protein 7.2 g/dL (6.4-8.2)
[2020-07-06 21:37] LABS: Acetaminophen < 2 ug/mL (10-30); Salicylate < 2.8 mg/dL (<2.8)
[2020-07-06 21:39] LABS: Diff Comment Diff Reviewed; RBC Morphology Normal
== END 2020-07-06 22:00 | disposition home or self-care (01) ==
PROVIDERS: Emergency Provider Emergency Medicine; PCP Family Medicine
DX: T55.0X2A Toxic effect of soaps, intentional self-harm, initial encounter (principal); T65.892A Toxic effect of other specified substances, intentional self-harm, initial encounter; T49.0X2A Poisoning by local antifungal, anti-infective and anti-inflammatory drugs, intentional self-harm, initial encounter; R45.6 Violent behavior; R11.0 Nausea
CPT/HCPCS: 80053; 80307; 93005; 99283; 80320; 80329; 83735; 85025; 93010

== ENCOUNTER 2020-10-25 01:47 | Outpatient (CLI) | payer MEDICARE, MEDICAID, SELFPAY ==
[2020-10-25 12:58] LABS: COMMENT (LAB VIEW ONLY) 48.76 mg/dL; Microalb ug/mg Crea 5.5 ug/mg Cr
[2020-10-25 13:07] LABS: Anion Gap 9.8 mmol/L (3-11); BUN 9 mg/dL (7-18); CO2 25.2 mmol/L (21.0-32.0); CREATININE 0.6 mg/dL (0.55-1.02); Calcium 8.4 mg/dL (8.5-10.1); Calculated LDL 93 mg/dL (<100); Chloride 101 mmol/L (98-107); Cholesterol 176 mg/dL (<200); Glucose 154 mg/dL (74-106); HDL Cholesterol 76 mg/dL (40-60); Sodium 136 mmol/L (136-145); Triglyceride 38 mg/dL (<150)
== END 2020-10-25 01:48 | disposition home or self-care (01) ==
LOC: LOS 01:47
PROVIDERS: PCP Family Medicine; Visit Provider Psychiatry & Neurology Psychiatry
DX: E11.9 Type 2 diabetes mellitus without complications (principal)
CPT/HCPCS: 36415; 80048; 80061; 82043; 82570

== ENCOUNTER 2021-04-21 03:06 | Outpatient (CLI) | payer MEDICARE, MEDICAID, SELFPAY ==
[2021-04-21 08:49] LABS: Hemoglobin A1C 6.7 % (<5.7)
[2021-04-21 09:15] LABS: BUN 13 mg/dL (7-18); CREATININE 0.6 mg/dL (0.55-1.02); Calcium 8.7 mg/dL (8.5-10.1); Chloride 103 mmol/L (98-107); Glucose 162 mg/dL (74-106); Sodium 138 mmol/L (136-145)
[2021-04-22 10:43] LABS: Measles IgG Antibody Negative (See Note); Mumps Antibody IgG Positive (See Note)
[2021-04-22 10:46] LABS: Rubella IgG Ab (UVM) Positive (See Note)
== END 2021-04-21 03:07 | disposition home or self-care (01) ==
LOC: LBO 03:06
PROVIDERS: PCP Family Medicine; Visit Provider Family Medicine
DX: E11.9 Type 2 diabetes mellitus without complications (principal); Z28.3 Underimmunization status; Z01.84 Encounter for antibody response examination
CPT/HCPCS: 36415; 80048; 83036; 86735; 86762; 86765

== ENCOUNTER 2021-08-26 03:12 | Outpatient (CLI) | payer MEDICARE, MEDICAID, SELFPAY ==
[2021-08-26 12:35] LABS: Anion Gap 8.1 mmol/L (3-11); BUN 16 mg/dL (7-18); CO2 27.9 mmol/L (21.0-32.0); CREATININE 0.6 mg/dL (0.55-1.02); Calcium 8.6 mg/dL (8.5-10.1); Chloride 102 mmol/L (98-107); Cholesterol 158 mg/dL (<200); Glucose 147 mg/dL (74-106); HDL Cholesterol 75 mg/dL (40-60); Potassium 3.6 mmol/L (3.5-5.1); Sodium 138 mmol/L (136-145)
[2021-08-26 12:43] LABS: COMMENT (LAB VIEW ONLY) 93.52 mg/dL
[2021-08-26 12:56] LABS: Triglyceride < 25 mg/dL (<150)
== END 2021-08-26 03:13 | disposition home or self-care (01) ==
PROVIDERS: PCP Family Medicine; Visit Provider Family Medicine
DX: E11.9 Type 2 diabetes mellitus without complications (principal)
CPT/HCPCS: 36415; 80048; 80061; 82043; 82570

== ENCOUNTER 2023-01-08 01:56 | Outpatient (CLI) | payer MEDICARE, MEDICAID, SELFPAY ==
[2023-01-08 12:22] LABS: Anion Gap 7.3 mmol/L (3-11); BUN 10 mg/dL (7-18); CO2 28.7 mmol/L (21.0-32.0); CREATININE 0.6 mg/dL (0.55-1.02); Calcium 9.2 mg/dL (8.5-10.1); Chloride 96 mmol/L (98-107); Estimated GFR 118.49 (mL/min/1.73m2); Glucose 132 mg/dL (74-106); Potassium 3.8 mmol/L (3.5-5.1); Sodium 132 mmol/L (136-145)
[2023-01-08 12:47] LABS: COMMENT (LAB VIEW ONLY) 35.02 mg/dL; Microalb ug/mg Crea 3.7 ug/mg Cr
== END 2023-01-08 01:57 | disposition home or self-care (01) ==
LOC: LOS 01:58
PROVIDERS: PCP Family Medicine; Visit Provider Family Medicine
DX: E11.9 Type 2 diabetes mellitus without complications (principal)
CPT/HCPCS: 36415; 80048; 82043; 82570

== ENCOUNTER 2023-05-14 11:11 | Outpatient (CLI) | payer MEDICARE, MEDICAID, SELFPAY ==
[2023-05-14 12:52] LABS: Hemoglobin A1C 6.6 % (<5.7)
[2023-05-14 13:02] LABS: ALT 25 U/L (14-59); AST 19 U/L (15-37); Albumin 3.8 g/dL (3.4-5.0); Alkaline Phosphatase 47 U/L (46-116); Anion Gap 7.4 mmol/L (3-11); BUN 18 mg/dL (7-18); Bilirubin, Total 0.3 mg/dL (0.2-1.0); CO2 29.6 mmol/L (21.0-32.0); CREATININE 0.7 mg/dL (0.55-1.02); Calcium 9.3 mg/dL (8.5-10.1); Chloride 104 mmol/L (98-107); Estimated GFR 114.16 (mL/min/1.73m2); Glucose 140 mg/dL (74-106); Potassium 4.3 mmol/L (3.5-5.1); Sodium 141 mmol/L (136-145); Total Protein 7.5 g/dL (6.4-8.2)
[2023-05-14 13:09] LABS: Sodium, Urine 30 mmol/L
[2023-05-14 21:55] LABS: Osmolality, Urine 265 mOsm/kg (150-1150)
== END 2023-05-14 11:12 | disposition home or self-care (01) ==
LOC: LOS 11:11
PROVIDERS: PCP Family Medicine; Referring Provider Family Medicine; Visit Provider Family Medicine
DX: E11.9 Type 2 diabetes mellitus without complications (principal)
CPT/HCPCS: 36415; 80053; 83935; 83036; 84300

== ENCOUNTER 2023-11-05 09:39 | Outpatient (CLI) | payer MEDICARE, MEDICAID, SELFPAY ==
--- NOTE | 2023-11-05 09:45 | RT.EKG_ITS ---
APPROVED REPORT Exam: Resting ECG Reason for Exam: Annual Patient Location: O HR:83 bpm ECG Measurements Heart Rate 83 AXIS AR 148 P 58 QRSd 94 QRS 84 QT 420 T 67 QTc 494 Conclusion Sinus rhythm...normal P axis, V-rate 50- 99 Nonspecific T abnormalities, anterior leads...T <-0.10mV, V2-V4 Borderline prolonged QT interval...QTc >485mS
== END 2023-11-05 09:40 | disposition home or self-care (01) ==
PROVIDERS: PCP Family Medicine; Visit Provider Family Medicine
DX: Z71.89 Other specified counseling (principal); Z79.899 Other long term (current) drug therapy
CPT/HCPCS: 93010

== ENCOUNTER 2024-04-28 09:13 | Outpatient (CLI) | payer MEDICARE, MEDICAID, SELFPAY ==
[2024-04-28 09:52] LABS: Hemoglobin A1C 5.8 % (<5.7)
[2024-04-28 10:12] LABS: ALT 17 U/L (14-59); AST 16 U/L (15-37); Alkaline Phosphatase 55 U/L (46-116); Anion Gap 7.9 mmol/L (3-11); BUN 16 mg/dL (7-18); Bilirubin, Total 0.3 mg/dL (0.2-1.0); CO2 27.1 mmol/L (21.0-32.0); CREATININE 0.7 mg/dL (0.55-1.02); Calcium 9.5 mg/dL (8.5-10.1); Calculated LDL 132 mg/dL (<100); Chloride 106 mmol/L (98-107); Cholesterol 239 mg/dL (<200); Estimated GFR 113.46 (mL/min/1.73m2); Glucose 112 mg/dL (74-106); HDL Cholesterol 99 mg/dL (>or=50); Potassium 3.9 mmol/L (3.5-5.1); Sodium 141 mmol/L (136-145); Triglyceride 41 mg/dL (<150)
== END 2024-04-28 09:14 | disposition home or self-care (01) ==
LOC: LBO 09:13
PROVIDERS: PCP Family Medicine; Visit Provider Family Medicine
DX: E11.9 Type 2 diabetes mellitus without complications (principal)
CPT/HCPCS: 36415; 80053; 80061; 82043; 82570; 83036

== ENCOUNTER 2024-05-03 13:32 | Outpatient (REF) | payer MEDICARE, MEDICAID, SELFPAY ==
[2024-05-03 22:12] LABS: Microalb ug/mg Crea 19.7 ug/mg Cr
== END 2024-05-03 13:33 | disposition home or self-care (01) ==
LOC: LBN 13:32
PROVIDERS: PCP Family Medicine; Visit Provider Family Medicine
DX: E11.9 Type 2 diabetes mellitus without complications (principal)
CPT/HCPCS: 82043; 82570

== ENCOUNTER 2024-09-08 14:46 | Outpatient (CLI) | payer MEDICARE, MEDICAID, SELFPAY ==
[2024-09-08 14:35] LABS: Abs Immature Grans 0.00 10^3/uL (0.0-0.06); HCT 40.0 % (36.0-46.0); HGB 13.1 g/dL (11.2-15.7); Immature Grans % 0.0 %; MCH 29.9 pg (27.0-33.0); MCHC 32.8 % (32.0-36.0); MCV 91 fL (80-95); MPV 9.6 fL (8.0-11.0); Platelet Count 203 10^3/uL (130-400); RBC 4.38 10^6/uL (3.93-5.22); RDW 12.8 % (11.7-14.6); RDW-SD 43.1 fL; WBC 4.85 10^3/uL (4.4-10.8)
[2024-09-08 15:20] LABS: ALT 29 U/L (14-59); AST 18 U/L (15-37); Albumin 3.7 g/dL (3.4-5.0); Alkaline Phosphatase 45 U/L (46-116); Anion Gap 11.0 mmol/L (3-11); BUN 19 mg/dL (7-18); Bilirubin, Total 0.2 mg/dL (0.2-1.0); CO2 24.0 mmol/L (21.0-32.0); Calcium 8.9 mg/dL (8.5-10.1); Chloride 104 mmol/L (98-107); Estimated GFR 117.02 (mL/min/1.73m2); Ferritin 98 ng/mL (8-252); Glucose 137 mg/dL (74-106); Potassium 3.6 mmol/L (3.5-5.1); Sodium 139 mmol/L (136-145); TSH (W/Ref FT4) 0.95 uIU/mL (0.36-3.74); Total Protein 7.1 g/dL (6.4-8.2)
[2024-09-08 22:52] LABS: FSH 2.8 mIU/mL (See Note)
== END 2024-09-08 14:47 | disposition home or self-care (01) ==
LOC: LBO 14:49
PROVIDERS: PCP Family Medicine; Visit Provider Family Medicine
DX: F50.83 Pica in adults (principal); E03.9 Hypothyroidism, unspecified; N94.3 Premenstrual tension syndrome
CPT/HCPCS: 36415; 80053; 82728; 83001; 84443; 85025

== ENCOUNTER 2024-09-09 17:31 | Emergency (ER) | payer MEDICARE, MEDICAID, SELFPAY ==
[2024-09-09 17:13] VITALS: BP 114/67; PULSE 102; RESP 18; TEMP 36.8; O2SAT 97
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
[2024-09-09] MEDS: hydrOXYzine PAMOATE 25 MG CAP 50 MG PO (19:25)
[2024-09-09] MEDS: guanFACINE 1 MG TAB 2 MG PO (23:05)
[2024-09-09] MEDS: traZODone 100 MG TAB PO (23:06)
[2024-09-09] MEDS: ARIPiprazole 15 MG TAB 20 MG PO (23:06)
[2024-09-09] MEDS: risperiDONE 0.5 MG TAB PO (23:15)
--- NOTE | 2024-09-10 01:09 | NUR.NOTE ---
Nursing Note: Sergio who is the publication directorcall worker at [facility] for the DS program called and spoke with this justowriter operator. Sergio stated that there was no staff available to brain picker this patient until after 8am. She stated that the caregiver has a baby at home and the guardian is a state appointed guardian, Emmie. Emmie called and spoke with another staff member and stated that she will not be coming to get the patient. See other note regarding this.
--- NOTE | 2024-09-10 01:11 | NUR.NOTE ---
Called Tonie Murray @ [phone], to notify her that the pt was being discharged and Ms. Murray stated that she needed to be evaluated before someone could come get her. i explained to Ms. Murray she had been evaluated by the ED provider and the [facility] Emergency services and has been cleared to return home. Ms. Murray asked who the worker was and I explained that she was seeing another patient and I didn't know her name, however the worker they had sent here to sit with the patient had spoke with the [facility] worker and she could tell her more. Ms. Murray stated she would look for a ride for the pt. Re called Ms. Murray at midnight and she stated she was still looking for a ride, that she couldn't come because she had a child that had stitches in her forehead and she was sleeping, and she would call me back to update when the ride would be here. Didn't hear from her, so called state appointed guardikamryn Olea, to inquire about a ride and she stated that she had talked to the home provider and they didn't feel like it was safe for her to go back. I explained she was evaluated by the ED Provider and [facility] emergency services and they feel she is safe to return back to her home. We needed someone to come get her because she had been discharged. Emmie stated that she didn't think anyone would come get her and that she certainly was not going to come get her. I stated to her that this could become an abandonment issue since she lives in a home with a care provider and Emmie replied this is a safety issue not an abandonment issue. I reiterated that she has been evaluated by 2 providers and was cleared to return to her home. And that I would pass that information to the supervisor looping and charge nurse. This typewriters functional tester reported this to clay house worker and charge nurse. Nursing Note:
--- NOTE | 2024-09-10 02:54 | NUR.NOTE ---
APS Report filed per direction of . File Number for intake report is [id number] Note:
--- NOTE | 2024-09-10 08:26 | NUR.NOTE ---
Access chart to get the height and weight from this visit for her next visit, immediately after disvcharge. Nursing Note:
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
--- NOTE | 2024-09-19 22:36 | PDOC.MHPN2 ---
Date of service: 09/10/24 Time of Service: 10:00 Mental Health Emergency Note Release [facility] release signed:: Yes Reason for Visit Care Team Meeting In the last 2 weeks has the pt presented for ES prior to today?: Yes, presented at Plan/Disposition Recommended Disposition: Other. Reports/communication Outcome discussed with: ED/Personnel and Other
== END 2024-09-10 08:07 | disposition home or self-care (01) ==
PROVIDERS: Emergency Provider Physician Assistant; PCP Family Medicine
DX: M25.532 Pain in left wrist (principal); R45.6 Violent behavior; R46.89 Other symptoms and signs involving appearance and behavior
CPT/HCPCS: 99284 ×2; 36416; 82962; 00123; 96127

== ENCOUNTER 2024-09-10 08:06 | Emergency (ER) | payer MEDICARE, MEDICAID, SELFPAY ==
[2024-09-10 08:16] VITALS: BP 115/79; PULSE 114; RESP 14; TEMP 35.4; O2SAT 99
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
[2024-09-10 08:37] VITALS: BP 115/79; PULSE 114; RESP 14; TEMP 35.4; O2SAT 99
--- NOTE | 2024-09-10 09:00 | NUR.NOTE ---
hydro generation supervisor with patient. Patient repeating that she does not want to go home. Has been having repetitive questions about leaving, where her workers are, is she going home? Nursing Note:
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
[2024-09-10] MEDS: Gabapentin 300 MG CAP PO (09:19)
--- NOTE | 2024-09-10 09:45 | NUR.NOTE ---
Pacing in room, repetitive questioning. Nursing Note:
[2024-09-10] MEDS: Haloperidol 1 MG TAB 2 MG PO (10:42)
[2024-09-10 11:17] VITALS: PULSE 108; O2SAT 98
[2024-09-10] MEDS: Haloperidol 1 MG TAB 4 MG PO (11:23)
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
== END 2024-09-10 11:42 | disposition home or self-care (01) ==
PROVIDERS: Emergency Provider Emergency Medicine; PCP Family Medicine
DX: R45.1 Restlessness and agitation (principal); E11.9 Type 2 diabetes mellitus without complications; Z79.84 Long term (current) use of oral hypoglycemic drugs
CPT/HCPCS: 80053; 80307; 81025; 82962; 93005; 99284; 99285; 80320; 80329; 81003; 81015; 83735; 84443; 85025; 93010

== ENCOUNTER 2024-09-10 15:45 | Emergency (ER) | payer MEDICARE, MEDICAID, SELFPAY ==
[2024-09-10 15:39] VITALS: BP 94/67; PULSE 106; RESP 14; TEMP 36.6; O2SAT 97
--- NOTE | 2024-09-10 15:45 | RT.EKG_ITS ---
APPROVED REPORT Exam: Resting ECG Reason for Exam: OD Patient Location: E HR:92 bpm ECG Measurements Heart Rate 92 AXIS WA 146 P 57 QRSd 91 QRS 71 QT 417 T 47 QTc 516 Conclusion Sinus rhythm 92 normal axis
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
[2024-09-10 16:08] LABS: Glucose >=1000 mg/dL (Negative)
[2024-09-10 16:16] LABS: C & S Indicated? No; RBC 0-2 HPF (0-2); WBC 0-2 HPF (0-5)
[2024-09-10 16:27] LABS: Cannabinoids THC Negative (Negative); METHADONE URINE SCREEN Negative (Negative)
[2024-09-10 16:42] LABS: Abs Immature Grans 0.02 10^3/uL (0.0-0.06); HCT 40.4 % (36.0-46.0); HGB 13.5 g/dL (11.2-15.7); Immature Grans % 0.3 %; MCH 30.0 pg (27.0-33.0); MCHC 33.4 % (32.0-36.0); MCV 90 fL (80-95); MPV 10.1 fL (8.0-11.0); Platelet Count 237 10^3/uL (130-400); RBC 4.50 10^6/uL (3.93-5.22); RDW 12.9 % (11.7-14.6); RDW-SD 42.5 fL; WBC 6.31 10^3/uL (4.4-10.8)
[2024-09-10 17:03] LABS: ALT 27 U/L (14-59); AST 18 U/L (15-37); Albumin 3.7 g/dL (3.4-5.0); Alkaline Phosphatase 52 U/L (46-116); Anion Gap 14.2 mmol/L (3-11); BUN 20 mg/dL (7-18); Bilirubin, Total 0.2 mg/dL (0.2-1.0); CO2 20.8 mmol/L (21.0-32.0); Calcium 8.7 mg/dL (8.5-10.1); Chloride 107 mmol/L (98-107); Estimated GFR 129.03 (mL/min/1.73m2); Glucose 146 mg/dL (74-106); Magnesium 1.9 mg/dL (1.8-2.4); Potassium 3.6 mmol/L (3.5-5.1); Sodium 142 mmol/L (136-145); Total Protein 7.1 g/dL (6.4-8.2)
[2024-09-10 17:09] LABS: Salicylate < 2.8 mg/dL (<2.8)
[2024-09-10 17:18] LABS: Acetaminophen < 2 ug/mL (10-30)
[2024-09-10 17:25] LABS: TSH (W/Ref FT4) 2.98 uIU/mL (0.36-3.74)
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
[2024-09-10] MEDS: hydrOXYzine HCL 25 MG TAB 50 MG PO (17:52)
[2024-09-10 18:17] VITALS: PULSE 96; O2SAT 98
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
[2024-09-10] MEDS: Haloperidol 1 MG TAB 2 MG PO (19:06)
--- NOTE | 2024-09-10 19:17 | NUR.NOTE ---
Nursing Note: pt refusing cardiac monitoring and BP monitoring. provider aware and advised this nurse that o2 prob is sufficient.
[2024-09-10 20:44] VITALS: PULSE 95; RESP 16; O2SAT 98
--- NOTE | 2024-09-11 03:45 | RT.EKG_ITS ---
APPROVED REPORT Exam: Resting ECG Reason for Exam: eval QT Patient Location: E HR:79 bpm ECG Measurements Heart Rate 79 AXIS ND 150 P 77 QRSd 95 QRS 80 QT 454 T 58 QTc 522 Conclusion Sinus rhythm...normal P axis, V-rate 60- 99 Prolonged QT interval...QTc >510mS I have reviewed and interpreted ECG and agree with software generated interpretation.
--- NOTE | 2024-09-11 07:21 | ED.PSYCHBOAR ---
Date of service: 09/11/24 Time of Service: 07:21 Psychiatric Border Handoff Update Brief Story: Patient stable throughout the night, no interventions needed. Pending reevaluation in the morning. Observation orders, meal, and meds are in. Patient does have history of slightly elongated QT, and she is on multiple medications that could prolong this. [facility] pharmacy did contact us and requested EKG to confirm QT status and to decide whether or not to continue psychiatric meds with potential QT prolongation. Status: voluntary Able to leave: would need physician/YING and crisis evaluation prior to leaving Behavioral Concerns: None Mediation Reconciliation performed: Yes Code Status ordered: Yes Diet ordered: Yes Future to do Items: I was in touch with Miri Biggs from psychiatry who evaluated the patient. Given QTc prolongation patient's home medication regime was markedly altered. Psychiatry advised hospitalization with as needed lorazepam 0.5 mg every 6 as needed. She avoided discontinuing all QTc prolonging agents including antipsychotics hydroxyzine and trazodone. 4:25 PM I signed patient out to Dr. Hernandez. Discharge Plan Discharge Details Chief Complaint: Suicide-Atempt Clinical Impression: Overdose, Suicide attempt Primary Care Provider: Shani Morrison ED Provider: Samuel Vergara Home Meds and New Rx's Prescriptions: No Action docusate sodium 100 mg tablet 100 mg PO DAILY PRN Jardiance 25 mg tablet 25 mg PO DAILY Qty: 90 3RF aripiprazole 20 mg tablet 20 mg PO QHS risperidone 0.5 mg tablet 0.5 mg PO BID guanfacine 2 mg tablet 2 mg PO BID hydroxyzine pamoate 50 mg capsule 50 mg PO TID PRN acetaminophen 650 mg tablet extended release 650 mg PO Q12H PRN Pepto-Bismol Ultra 525 mg tablet 525 mg PO Q30M PRN Rx Instructions: do not exceed 8 doses in a 24 hour period ammonium lactate 12 % cream 1 applic topical DAILY Qty: 280 3RF (DME) lancets 28 gauge misc 1 ea Miscellaneous BID Qty: 200 4RF Rx Instructions: FOR One Touch Ultra METER. DIAGNOSIS CODE E11.9 gabapentin 300 mg capsule 300 mg PO DAILY PRN (Reason: agitation) gabapentin 100 mg capsule 100 mg PO QID fluoxetine 10 mg capsule 10 mg PO DAILY ibuprofen 200 MG capsule 1 - 2 cap PO Q 8 HR PRN Qty: 100 Rx Instructions: 200 MG-400 MG Q8HR PRN loperamide [Imodium A-D] 2 mg capsule 2 mg PO Q4H PRN (Reason: loose stool) Qty: 60 0RF Rx Instructions: administer after each loose stool until symptoms controlled; do not exceed 8 mg per 24 hrs (DME) blood-glucose meter [OneTouch Ultra2 Meter] Misc See Rx Instructions .ROUTE .MEDSUPPLY Qty: 1 0RF Rx Instructions: Check blood sugar BID ketoconazole 2 % cream 1 applic topical DAILY PRN (Reason: tinea corporis) Qty: 60 0RF multivitamin Tablet 1 tab PO DAILY Qty: 90 3RF pravastatin 80 mg tablet 80 mg PO DAILY Qty: 90 4RF Rx Instructions: increased dose/take one tablet daily metformin 500 mg tablet 500 mg PO BID Qty: 180 3RF (DME) OneTouch Ultra Test Strip See Rx Instructions .ROUTE .COMPLEX Qty: 100 4RF Dose Instruction: TEST TWO TIMES A DAY Rx Instructions: Test once daily trazodone 100 MG tablet 100 mg PO HS semaglutide 7 mg tablet 14 mg PO DAILY haloperidol 2 mg tablet 2 mg PO TID PRNQty: 14 0RF
[2024-09-11 08:00] VITALS: BP 105/75; PULSE 75; RESP 16; TEMP 36.2; O2SAT 95
[2024-09-11] MEDS: guanFACINE 1 MG TAB 2 MG PO ×2 (09:11→20:12)
[2024-09-11] MEDS: diazePAM 2 MG TAB PO (09:11)
[2024-09-11] MEDS: Empaglifozin 25 MG TAB PO (09:11)
[2024-09-11] MEDS: Gabapentin 100 MG CAP PO ×4 (09:12→20:12)
[2024-09-11] MEDS: metFORMIN 500 MG TAB PO ×2 (09:12→20:12)
[2024-09-11] MEDS: Multivitamin TAB 1 TAB PO (09:13)
[2024-09-11] MEDS: Loperamide 2 MG CAP PO (09:14)
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
--- NOTE | 2024-09-11 14:13 | NUR.NOTE ---
This rn called and S/W Dr Vergara regarding 5mg Valium order. This rn had previoulsy given PRN 2mg Valium less than 2 hour before 5mg Valium order was placed. Per Dr Vergara: okay to give 5mg Valium now. This rn called and s/w pharmacy to have order rescheduled for 14:30 Nursing Note:
[2024-09-11] MEDS: diazePAM 5 MG TAB PO (14:23)
--- NOTE | 2024-09-11 15:18 | CMSP_ITS ---
Date of service: 09/11/24 Time of Service: 15:18 Care Management Safety Plan Status Status: Voluntary Reason for Wait Reason for Wait: Inpatient Admission Safety Plan Safety Plan: VOLUNTARY FOR INPATIENT PSYCHIATRIC STABILIZATION.? Patient is appropriate in all interactions since arriving at [facility]; Pt has demonstrated appropriate coping and communication skills, has articulated his or her needs and concerns and is fully engaged during staff interactions. Safety plan has been established with patient, and care team, to adhere to patient goals, identify restrictions based on behavioral status, address nutrition, and determine allowed personal belongings, tools for hygiene and personal care. Determine level of activity including ambulation, level of superv ision, visitors, and determine privileges based on behaviors and level of engagement by pt. VOLUNTARY SAFETY PLAN: 1. Will remain on suicide precautions, in paper clothes 2. Will remain in Zone B under direct supervision of one-on-one staff at all times provided by [employer]; MEGAN, FEATHER SEPARATOR lead worker of housekeeping and laundry. 3. May have paper cups, plates, finger foods as well as a cardboard spoon with which to eat meals. Diet to follow Lady's home regiment; details provided by staff. 4. Follow [facility] Management of the Admitted Behavioral Health Patient policy. 5. Shower available in Zone B without restriction. 6. Personal belongings-soft items permitted at RN discretion. 7. Visitors- members of Lady's care team may visit, as well as her guardian. 8. Activities: soft cart items, hospital tablets (Netflix/Sherrill+/music) approved per RN discretion. 9.? Bathroom available in Zone B without restriction. 10. Phone: limited to [facility] cordless phone at RN discretion. Due to VOLUNTARY status, if patient wishes to leave [facility], staff will contact [facility] Crisis Screener ([phone]) and Geophysical Prospecting Permit Agent ([phone]) as soon as possible. In the event of elopement, notify [place] [employer] Police ([phone]). Patient is currently voluntarily at [facility] and seeking inpatient admission when a bed becomes available. [facility] Frontline Nitro Worker will continue seeking placement. Please contact the Geophysical Prospecting Permit Agent ([phone]) and [facility] Nitro Worker ([phone]) for any needed changes in the Safety Plan. Safety plan has been provided to interdepartmental care team.
--- NOTE | 2024-09-11 15:18 | PDOC.CMSAFE ---
Date of service: 09/11/24 Time of Service: 15:18 Care Management Safety Plan Status Status: Voluntary Reason for Wait Reason for Wait: Inpatient Admission Safety Plan Safety Plan: VOLUNTARY FOR INPATIENT PSYCHIATRIC STABILIZATION.? Patient is appropriate in all interactions since arriving at [facility]; Pt has demonstrated appropriate coping and communication skills, has articulated his or her needs and concerns and is fully engaged during staff interactions. Safety plan has been established with patient, and care team, to adhere to patient goals, identify restrictions based on behavioral status, address nutrition, and determine allowed personal belongings, tools for hygiene and personal care. Determine level of activity including ambulation, level of supervision, visitors, and determine privileges based on behaviors and level of engagement by pt. VOLUNTARY SAFETY PLAN: 1. Will remain on suicide precautions, in paper clothes 2. Will remain in Zone B under direct supervision of one-on-one staff at all times provided by [employer]; MEGNA, DRY STARCH SUPERVISOR supervisor [employer]. 3. May have paper cups, plates, finger foods as well as a cardboard spoon with which to eat meals. Diet to follow Lady's home regiment; details provided by staff. 4. Follow [facility] Management of the Admitted Behavioral Health Patient policy. 5. Shower available in Zone B without restriction. 6. Personal belongings-soft items permitted at RN discretion. 7. Visitors- members of Lady's care team may visit, as well as her guardian. 8. Activities: soft cart items, hospital tablets (Netflix/[place]+/music) approved per RN discretion. 9.? Bathroom available in Zone B without restriction. 10. Phone: limited to [facility] cordless phone at RN discretion. Due to VOLUNTARY status, if patient wishes to leave [facility], staff will contact [facility] Crisis Screener ([phone]) and Senior Investigator ([phone]) as soon as possible. In the event of elopement, notify [place] [employer] Police ([phone]). Patient is currently voluntarily at [facility] and seeking inpatient admission when a bed becomes available. [facility] Frontline Valve Technician will continue seeking placement. Please contact the Senior Investigator ([phone]) and [facility] Valve Technician ([phone]) for any needed changes in the Safety Plan. Safety plan has been provided to interdepartmental care team.
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
[2024-09-11] MEDS: LORazepam 0.5 MG TAB PO ×2 (17:23→22:37)
--- NOTE | 2024-09-11 17:25 | NUR.NOTE ---
15:15 pt reported feelings of anxiety to this rn. This rn attempted to distract pt with recommending activites. Pt persisted in becoming agitated and stated she felt anxious. Pt pacing the walk way and common area. Pt requesting medication for anxiety relief Nursing Note:
[2024-09-11] MEDS: Pravastatin 40 MG TAB 80 MG PO (20:13)
--- NOTE | 2024-09-11 21:26 | ED.PROG_ITS ---
Date of service: 09/11/24 Time of Service: 21:26 Medical Decision Making Patient is here complaining of a rash in her left AC area where she had blood drawn. She does have some patches of erythema in the left AC that appear to be urticaria. It is localized just to this area. Suspect contact dermatitis, will order hydrocortisone cream. Discharge Plan Discharge Details Chief Complaint: Suicide-Atempt Clinical Impression: Overdose, Suicide attempt Primary Care Provider: Shani Morrison ED Provider: Yevgeniy Hernandez [place] Meds and New Rx's Prescriptions: No Action docusate sodium 100 mg tablet 100 mg PO DAILY PRN Jardiance 25 mg tablet 25 mg PO DAILY Qty: 90 3RF aripiprazole 20 mg tablet 20 mg PO QHS risperidone 0.5 mg tablet 0.5 mg PO BID guanfacine 2 mg tablet 2 mg PO BID hydroxyzine pamoate 50 mg capsule 50 mg PO TID PRN acetaminophen 650 mg tablet extended release 650 mg PO Q12H PRN Pepto-Bismol Ultra 525 mg tablet 525 mg PO Q30M PRN Rx Instructions: do not exceed 8 doses in a 24 hour period ammonium lactate 12 % cream 1 applic topical DAILY Qty: 280 3RF (DME) lancets 28 gauge misc 1 ea Miscellaneous BID Qty: 200 4RF Rx Instructions: FOR One Touch Ultra METER. DIAGNOSIS CODE E11.9 gabapentin 300 mg capsule 300 mg PO DAILY PRN (Reason: agitation) gabapentin 100 mg capsule 100 mg PO QID fluoxetine 10 mg capsule 10 mg PO DAILY ibuprofen 200 MG capsule 1 - 2 cap PO Q 8 HR PRN Qty: 100 Rx Instructions: 200 MG-400 MG Q8HR PRN loperamide [Imodium A-D] 2 mg capsule 2 mg PO Q4H PRN (Reason: loose stool) Qty: 60 0RF Rx Instructions: administer after each loose stool until symptoms controlled; do not exceed 8 mg per 24 hrs (DME) blood-glucose meter [OneTouch Ultra2 Meter] Misc See Rx Instructions .ROUTE .MEDSUPPLY Qty: 1 0RF Rx Instructions: Check blood sugar BID ketoconazole 2 % cream 1 applic topical DAILY PRN (Reason: tinea corporis) Qty: 60 0RF multivitamin Tablet 1 tab PO DAILY Qty: 90 3RF pravastatin 80 mg tablet 80 mg PO DAILY Qty: 90 4RF Rx Instructions: 02-2021 increased dose/take one tablet daily metformin 500 mg tablet 500 mg PO BID Qty: 180 3RF (DME) OneTouch Ultra Test Strip See Rx Instructions .ROUTE .COMPLEX Qty: 100 4RF Dose Instruction: TEST TWO TIMES A DAY Rx Instructions: Test once daily trazodone 100 MG tablet 100 mg PO HS semaglutide 7 mg tablet 14 mg PO DAILY haloperidol 2 mg tablet 2 mg PO TID PRNQty: 14 0RF
[2024-09-11] MEDS: Hydrocortisone 1% CR 30 GM TUBE TP (22:38)
[2024-09-11] MEDS: Melatonin 3 MG TAB PO ×2 (23:36)
[2024-09-12] MEDS: LORazepam 0.5 MG TAB PO ×4 (04:15→19:58)
[2024-09-12] MEDS: guanFACINE 1 MG TAB 2 MG PO ×2 (07:36→19:58)
[2024-09-12] MEDS: Multivitamin TAB 1 TAB PO (07:36)
[2024-09-12] MEDS: Empaglifozin 25 MG TAB PO (07:36)
[2024-09-12] MEDS: metFORMIN 500 MG TAB PO ×2 (07:36→19:58)
[2024-09-12] MEDS: Gabapentin 100 MG CAP PO ×4 (07:37→19:58)
[2024-09-12 07:45] VITALS: BP 112/75; PULSE 83; RESP 16; TEMP 36.8; O2SAT 96
--- NOTE | 2024-09-12 10:38 | ED.PROG1_ITS ---
Date of service: 09/12/24 Time of Service: 15:51 Psychiatric Border Handoff Update Brief Story: 39-year-old female with history of behavioral issues as well as diabetes [facility] after taking 2 days worth of medication and what patient endorses was a suicide attempt. The patient is currently pending voluntary inpatient placement. There was some initial thought that she would go to [facility], but her guardians have declined this as an option for her. We have been working on placement throughout the day. Status: voluntary Able to leave: would need physician/YING and crisis evaluation prior to leaving Behavioral Concerns: Patient is highly needy, constantly coming up to the window and zone B constantly asking questions constantly asking for things. Very hard to redirect. Thus far has not exhibited any violent or aggressive behavior. Potential Disposition: Referrals have been faxed Barriers to Disposition: Currently not welcome back at the penitentiary, guardians have a lot of say and where she will go Medical Concerns: Prolonged QTc, avoid giving QTc prolonging medication Diet ordered: Yes Discharge Plan Discharge Details Chief Complaint: Suicide-Atempt Clinical Impression: Overdose, Suicide attempt Primary Care Provider: Shani Morrison ED Provider: Ani May [place] Meds and New Rx's Prescriptions: No Action docusate sodium 100 mg tablet 100 mg PO DAILY PRN Jardiance 25 mg tablet 25 mg PO DAILY Qty: 90 3RF aripiprazole 20 mg tablet 20 mg PO QHS risperidone 0.5 mg tablet 0.5 mg PO BID guanfacine 2 mg tablet 2 mg PO BID hydroxyzine pamoate 50 mg capsule 50 mg PO TID PRN acetaminophen 650 mg tablet extended release 650 mg PO Q12H PRN Pepto-Bismol Ultra 525 mg tablet 525 mg PO Q30M PRN Rx Instructions: do not exceed 8 doses in a 24 hour period ammonium lactate 12 % cream 1 applic topical DAILY Qty: 280 3RF (DME) lancets 28 gauge misc 1 ea Miscellaneous BID Qty: 200 4RF Rx Instructions: FOR One Touch Ultra METER. DIAGNOSIS CODE E11.9 gabapentin 300 mg capsule 300 mg PO DAILY PRN (Reason: agitation) gabapentin 100 mg capsule 100 mg PO QID fluoxetine 10 mg capsule 10 mg PO DAILY ibuprofen 200 MG capsule 1 - 2 cap PO Q 8 HR PRN Qty: 100 Rx Instructions: 200 MG-400 MG Q8HR PRN loperamide [Imodium A-D] 2 mg capsule 2 mg PO Q4H PRN (Reason: loose stool) Qty: 60 0RF Rx Instructions: administer after each loose stool until symptoms controlled; do not exceed 8 mg per 24 hrs (DME) blood-glucose meter [OneTouch Ultra2 Meter] Misc See Rx Instructions .ROUTE .MEDSUPPLY Qty: 1 0RF Rx Instructions: Check blood sugar BID ketoconazole 2 % cream 1 applic topical DAILY PRN (Reason: tinea corporis) Qty: 60 0RF multivitamin Tablet 1 tab PO DAILY Qty: 90 3RF pravastatin 80 mg tablet 80 mg PO DAILY Qty: 90 4RF Rx Instructions: increased dose/take one tablet daily metformin 500 mg tablet 500 mg PO BID Qty: 180 3RF (DME) OneTouch Ultra Test Strip See Rx Instructions .ROUTE .COMPLEX Qty: 100 4RF Dose Instruction: TEST TWO TIMES A DAY Rx Instructions: Test once daily trazodone 100 MG tablet 100 mg PO HS semaglutide 7 mg tablet 14 mg PO DAILY haloperidol 2 mg tablet 2 mg PO TID PRNQty: 14 0RF
[2024-09-12] MEDS: Hydrocortisone 1% CR 30 GM TUBE TP (11:09)
[2024-09-12] MEDS: OLANZapine ODT 5 MG TAB 10 MG PO (13:28)
--- NOTE | 2024-09-12 13:35 | CMSP_ITS ---
Date of service: 09/12/24 Time of Service: 13:35 Care Management Safety Plan Status Status: Voluntary Reason for Wait Reason for Wait: Inpatient Admission Safety Plan Safety Plan: VOLUNTARY FOR INPATIENT PSYCHIATRIC STABILIZATION.? Patient is appropriate in all interactions since arriving at [facility]; Pt has demonstrated appropriate coping and communication skills, has articulated his or her needs and concerns and is fully engaged during staff interactions. Safety plan has been established with patient, and care team, to adhere to patient goals, identify restrictions based on behavioral status, address nutrition, and determine allowed personal belongings, tools for hygiene and personal care. Determine level of activity including ambulation, level of supervision, visitors, and determine privileges based on behaviors and level of engagement by pt. VOLUNTARY SAFETY PLAN: 1. Will remain on suicide precautions, in paper clothes 2. Will remain in Zone B under direct supervision of one-on-one staff at all times provided by [employer]; MEGAN, [employer] senior java j2ee developer. 3. May have paper cups, plates, finger foods as well as a cardboard spoon with which to eat meals. Diet to follow Lady's home regiment; details provided by staff. 4. Follow [facility] Management of the Admitted Behavioral Health Patient policy. 5. Shower available in Zone B without restriction. 6. Personal belongings-soft items permitted at RN discretion. 7. Visitors- members of Lady's care team may visit, as well as her guardian. 8. Activities: soft cart items, at RN discretion. 9.? Bathroom available in Zone B without restriction. 10. Phone: limited to [facility] cordless phone at RN discretion. Due to VOLUNTARY status, if patient wishes to leave [facility], staff will contact [facility] Crisis Screener ([phone]) and Temporary Help Agency Referral Clerk ([phone]) as soon as possible. In the event of elopement, notify [place] [employer] ([phone]). Patient is currently voluntarily at [facility] and seeking inpatient admission when a bed becomes available. [facility] Frontline Brim Edge Trimmer will continue seeking placement. Please contact the Temporary Help Agency Referral Clerk ([phone]) and [facility] Brim Edge Trimmer ([phone]) for any needed changes in the Safety Plan. Safety plan has been provided to interdepartmental care team.
--- NOTE | 2024-09-12 13:36 | PDOC.CMPRO ---
Date of service: 09/12/24 Time of Service: 13:36 Care Management Progress Note Progress Note Text Progress Note Text: CM huddled with [facility] and [facility] staff regarding Lady's plan of care. Per [facility], Lady was being considered for admission at the [facility] in [place], [place]. Per guidelines for the facility, she would be able to stay there for 23H, and her DS staff would need to take her out for an hour or two daily. CM called her guardian, Emmie, with [facility] ([facility]) to discuss this plan. Emmie stated that due to Lady's presentation, she did not feel that the [facility] is a safe option for her, and requested that hospitalization continue to be pursued. Per RN, Lady has been appropriate, but has required a lot of time and attention, as she has been anxious and asking about her plan of care. [facility] requested that provide academic support director as visitors to Lady during the day in order to help her remain stable while waiting for treatment. Lady has been struggling with disruptions caused by other patients near her room, in zone B, so having a friendly face with her has been helpful for both Lady and staff. Per Shae [facility], Maureen is reviewing Lady's referral. BR asked if Lady would be agreeable/appropriate for inpatient treatment, such as having a regimented schedule and interacting with staff and other patients. Lady has been to inpatient treatment in the past and did well, and her schedule is regimented at home, therefore Shae felt that inpatient would be appropriate and effective. Emmie, Lady's guardian, is agreeable to her going inpatient, and would like her to transition to [facility] ( crisis bed) after, in order to provide time for coordination in the community to support Lady extermination supervisor. Lady is currently voluntary, seeking inpatient psychiatric treatment. Referrals were sent by [facility]; safety plan in place. CM will continue to follow. Social Determinants of Health Screening Will the Patient Participate in the Screening?: Declined to provide
--- NOTE | 2024-09-12 15:31 | MHPN_ITS ---
Date of service: 09/12/24 Time of Service: 15:33 Mental Health Emergency Note Release [facility] release signed:: Yes Reason for Visit The client is known to [facility] and receives intensive services with the DS program. She has been hospitalized before and the last was many years ago for similar behaviors. The client is seen daily as she has wrap around services and supports in a staffed home in [place]. The client returned to the ED on 09.10.24 after she again became aggressive and took 2 day's worth of am, noon and pm medications to kill myself. This is a re-assessment for placement. In the last 2 weeks has the pt presented for ES prior to today?: Yes, presented at [facility] ED Impression The client is a 39-year-old, single, female who resides in a staff home in [facility]. She is diagnosed with Mild intellectual disabilities, Post-traumatic stress disorder, unspecified, Intermittent explosive disorder and unspecified psychosis. All underrepresented categories were honored during this assessment. The client is observed being very happy when this clinician arrived. She bragged about how well she ate yesterday and that she did not sleep well but later noted that she slept well after getting some melatonin. She reported she is is still feeling suicidal if she were to return home rating herself a 10/10 and the same for HI. She reported she could keep herself safe if she were to go to another place and so we discussed the [facility] to which she was excited about. However, in a huddle with ALISSA Paul and Seth Escamilla long term acute care registered nurse for [facility] and the client's guardian who expressed her concerns that the FP would only be a band-aid and that she would prefer her to go inpatient, then to [place] and eventually to another as she is frustrated with the services and triggers the client is getting from her DS team. The client is observed pacing and interrupting other's assessments needing to be redirected to her room on occasion. Additionally, if the client could see this clinician she was constantly asking to talk and this clinician returned to her room approximately 10 times this am resulting in requesting that DS send a support to sit with her as this clinician could not move forward with referrals etc. if unable to leave and at the same time wanted the client to be safe especially following another client's admittance to [facility] and the client observed them getting deregulated and hurting themselves in a similar manner that the cleint does. A DS support did come for a little while. Plan/Disposition Recommended Disposition: Hospitalization facilities contacted. Plan: [facility] outreached and noted they did not have a bed on T1 where they would prefer to send her so as not to deregulate her further. They anticipate discharges tomorrow. ES will outreach to [facility] in the am. Person reported agreement to plan: Yes Reports/communication Outcome discussed with: ED/Personnel
[2024-09-12] MEDS: Pravastatin 40 MG TAB 80 MG PO (19:58)
[2024-09-13 07:54] VITALS: BP 90/65; PULSE 96; RESP 17; TEMP 36.5; O2SAT 99
[2024-09-13] MEDS: Empaglifozin 25 MG TAB PO (08:13)
[2024-09-13] MEDS: guanFACINE 1 MG TAB 2 MG PO (08:13)
[2024-09-13] MEDS: Gabapentin 100 MG CAP PO ×3 (08:13→15:48)
[2024-09-13] MEDS: Multivitamin TAB 1 TAB PO (08:14)
[2024-09-13] MEDS: metFORMIN 500 MG TAB PO (08:14)
[2024-09-13] MEDS: LORazepam 0.5 MG TAB PO (08:18)
[2024-09-13] MEDS: Hydrocortisone 1% CR 30 GM TUBE TP (08:22)
--- NOTE | 2024-09-13 08:32 | ED.PSYCHBOAR ---
Date of service: 09/13/24 Time of Service: 08:33 Psychiatric Border Handoff Update Brief Story: 86-year-old female with suicidal ideation discontinued off of meds given prolonged QTc. Psychiatry recommended as needed lorazepam. Status: voluntary Able to leave: would need physician/YING and crisis evaluation prior to leaving Behavioral Concerns: None Barriers to Disposition: Pending placement Medical Concerns: None Mediation Reconciliation performed: Yes Code Status ordered: Yes Diet ordered: Yes Future to do Items: Follow-up [facility] services 12:48 PM I was in touch with Dr. Stein from the [facility] who graciously agreed to accept the patient. 4:30 PM Patient transferred to [facility]. I sent transfer paperwork. She will go in the next several hours. I have ordered her a one-time dose of oral olanzapine prior to transfer. Discharge Plan Disposition Patient Disposition: [facility] Hospital/Unit Specific Psychiatric Facility: [facility] Discharge Details Clinical Impression: Overdose, Suicide attempt, Prolonged QT interval Primary Care Provider: Shani Morrison ED Provider: Samuel Vergara Home Meds and New Rx's Prescriptions: Continued docusate sodium 100 mg tablet 100 mg PO DAILY PRN Jardiance 25 mg tablet 25 mg PO DAILY Qty: 90 3RF guanfacine 2 mg tablet 2 mg PO BID acetaminophen 650 mg tablet extended release 650 mg PO Q12H PRN Pepto-Bismol Ultra 525 mg tablet 525 mg PO Q30M PRN Rx Instructions: do not exceed 8 doses in a 24 hour period ammonium lactate 12 % cream 1 applic topical DAILY Qty: 280 3RF (DME) lancets 28 gauge misc 1 ea Miscellaneous BID Qty: 200 4RF Rx Instructions: FOR One Touch Ultra METER. DIAGNOSIS CODE E11.9 gabapentin 300 mg capsule 300 mg PO DAILY PRN (Reason: agitation) gabapentin 100 mg capsule 100 mg PO QID ibuprofen 200 MG capsule 1 - 2 cap PO Q 8 HR PRN Qty: 100 Rx Instructions: 200 MG-400 MG Q8HR PRN loperamide [Imodium A-D] 2 mg capsule 2 mg PO Q4H PRN (Reason: loose stool) Qty: 60 0RF Rx Instructions: administer after each loose stool until symptoms controlled; do not exceed 8 mg per 24 hrs (DME) blood-glucose meter [OneTouch Ultra2 Meter] [facility] [place] Rx Instructions .ROUTE .MEDSUPPLY Qty: 1 0RF Rx Instructions: Check blood sugar BID ketoconazole 2 % cream 1 applic topical DAILY PRN (Reason: tinea corporis) Qty: 60 0RF multivitamin Tablet 1 tab PO DAILY Qty: 90 3RF pravastatin 80 mg tablet 80 mg PO DAILY Qty: 90 4RF Rx Instructions: increased dose/take one tablet daily metformin 500 mg tablet 500 mg PO BID Qty: 180 3RF (DME) OneTouch Ultra Test Strip See Rx Instructions .ROUTE .COMPLEX Qty: 100 4RF Dose Instruction: TEST TWO TIMES A DAY Rx Instructions: Test once daily semaglutide 7 mg tablet 14 mg PO DAILY Discontinued aripiprazole 20 mg tablet 20 mg PO QHS risperidone 0.5 mg tablet 0.5 mg PO BID hydroxyzine pamoate 50 mg capsule 50 mg PO TID PRN fluoxetine 10 mg capsule 10 mg PO DAILY trazodone 100 MG tablet 100 mg PO HS haloperidol 2 mg tablet 2 mg PO TID PRNQty: 14 0RF Discharge Instructions Additional Instructions: You are seen in the emergency department for your thoughts of self-harm. Your QTc was prolonged on your EKG. Many of your meds were discontinued. [facility]
[2024-09-13] MEDS: Acetaminophen 500 MG TAB (10:55)
--- NOTE | 2024-09-13 13:59 | MHPN_ITS ---
Date of service: 09/13/24 Time of Service: 14:01 Mental Health Emergency Note Release [facility] release signed:: Yes Reason for Visit The client is known to [facility] and receives intensive services with the DS program. She has been hospitalized before and the last was many years ago for similar behaviors. The client is seen daily as she has wrap around services and supports in a staffed home in [place]. The client returned to the ED on 09.10.24 after she again became aggressive and took 2 day's worth of am, noon and pm medications to kill myself. This is a re-assessment for placement, day 3. In the last 2 weeks has the pt presented for ES prior to today?: Yes, presented at [facility] ED Impression The client is a 39-year-old, single, female who resides in a staff home in [facility]. She is diagnosed with Mild intellectual disabilities, Post-traumatic stress disorder, unspecified, Intermittent explosive disorder and unspecified psychosis. All underrepresented categories were honored during this assessment. The client is observed initially sitting in her room with her DS mission support specialist. Once she sees this clinician she came right out excited for her chance to meet with this clinician. Reported by nursing she had [place], a muffin, two borjas and two sausage for breakfast however, the client reported she had eggs not [place]. She was also reported to have ordered, a Caesar salad, two egg salad sandwiches, and mac and cheese for lunch along with a fruit bowl and other items. This clinician informed nursing they needed to only get her a biofuels technology development manager salad and a fruit bowl. This clinician discussed this with the client as well along again with the reasons for this change. The client was observed hanging her head with disappointment in her choices. She is observed when this clinician is not in the room to be pacing a geat deal, attempting ot go into the other client's room and needing to be asked to leave and reports feeling anxious, lonely and reporting all kinds of somatic complaints to get he doctor to come visit her. When the nurse inquires about why she needs the doctor and goes to look at whatever ache she expressed the client then stated oh I'm all good now. The client seeks reassurance that she is doing good and this is given freely as over all she has done a fantastic job while waiting other than being fidgety. Nurse also reports that she has been saying she is not going home and repeatedly saying she likes it in Zone [place] its like a vacation. Additionally, the nurse reported that she has been trying to give ultimatums to the staff to get her needs met like asking for something and saying if she does not get it she will hurt herself. They have been able to manage this well. Plan/Disposition Recommended Disposition: Hospitalization facilities contacted. Plan: The client is accepted to today and will leave around 5pm via transport. She will be going to T[facility]. Person reported agreement to plan: Yes Reports/communication Outcome discussed with: ED/Personnel
--- NOTE | 2024-09-13 16:44 | CMPROGNOTE_ITS ---
Date of service: 09/13/24 Time of Service: 16:44 Care Management Progress Note Progress Note Text Progress Note Text: CM huddled with [facility] and [facility] staff regarding Lady's plan of care. Per [facility]. Shae [facility], informed her guardian of the plan to transfer her to [facility] as soon as a bed became available. She was transported to this afternoon via Bilingual Legal Assistant, coordinated by ED staff. She was agreeable to this plan. CM will continue to follow. Social Determinants of Health Screening Will the Patient Participate in the Screening?: Declined to provide
--- NOTE | 2024-09-13 16:44 | PDOC.CMPRO ---
Date of service: 09/13/24 Time of Service: 16:44 Care Management Progress Note Progress Note Text Progress Note Text: CM huddled with [facility] and [facility] staff regarding Lady's plan of care. Per report[facility]. Shae [facility], informed her guardian of the plan to transfer her to [place] as soon as a bed became available. She was transported to this afternoon via Production Expert, coordinated by ED staff. She was agreeable to this plan. CM will continue to follow. Social Determinants of Health Screening Will the Patient Participate in the Screening?: Declined to provide
== END 2024-09-13 16:36 ==
PROVIDERS: Nurse Practitioner Family; Emergency Provider Emergency Medicine; PCP Family Medicine
DX: T42.6X2A Poisoning by other antiepileptic and sedative-hypnotic drugs, intentional self-harm, initial encounter (principal); T43.222A Poisoning by selective serotonin reuptake inhibitors, intentional self-harm, initial encounter; T38.3X2A Poisoning by insulin and oral hypoglycemic [antidiabetic] drugs, intentional self-harm, initial encounter; T43.592A Poisoning by other antipsychotics and neuroleptics, intentional self-harm, initial encounter; T46.5X2A Poisoning by other antihypertensive drugs, intentional self-harm, initial encounter; F39 Unspecified mood [affective] disorder; F70 Mild intellectual disabilities; R94.31 Abnormal electrocardiogram [ECG] [EKG]; R21 Rash and other nonspecific skin eruption; E11.9 Type 2 diabetes mellitus without complications; Z79.899 Other long term (current) drug therapy; Z79.84 Long term (current) use of oral hypoglycemic drugs
CPT/HCPCS: 00123; 80053; 80307; 81025; 82962; 93005; 99285; G0378; 80320; 80329; 81003; 81015; 83735; 84443; 85025; 93010; J3490

== ENCOUNTER 2024-09-29 20:03 | Emergency (ER) | payer MEDICARE, MEDICAID, SELFPAY ==
[2024-09-29 20:15] VITALS: BP 102/71; PULSE 107; RESP 18; TEMP 37; O2SAT 96
[2024-09-29 20:46] LABS: Glucose >=1000 mg/dL (Negative)
[2024-09-29 20:55] LABS: C & S Indicated? No; RBC 0-2 HPF (0-2)
[2024-09-29 21:38] LABS: Abs Immature Grans 0.01 10^3/uL (0.0-0.06); HCT 41.7 % (36.0-46.0); HGB 14.0 g/dL (11.2-15.7); Immature Grans % 0.2 %; MCH 30.2 pg (27.0-33.0); MCHC 33.6 % (32.0-36.0); MCV 90 fL (80-95); MPV 9.4 fL (8.0-11.0); Platelet Count 251 10^3/uL (130-400); RBC 4.64 10^6/uL (3.93-5.22); RDW 12.8 % (11.7-14.6); RDW-SD 42.1 fL; WBC 5.29 10^3/uL (4.4-10.8)
[2024-09-29] MEDS: Omnipaque 350 MG/ML 100 ML BTL 75 ML IJ (21:53)
[2024-09-29 21:54] LABS: ALT 18 U/L (14-59); AST 17 U/L (15-37); Albumin 4.0 g/dL (3.4-5.0); Alkaline Phosphatase 59 U/L (46-116); Anion Gap 6.6 mmol/L (3-11); BUN 13 mg/dL (7-18); Bilirubin, Total 0.2 mg/dL (0.2-1.0); CO2 30.4 mmol/L (21.0-32.0); Calcium 10.1 mg/dL (8.5-10.1); Chloride 99 mmol/L (98-107); Estimated GFR 117.02 (mL/min/1.73m2); Glucose 122 mg/dL (74-106); Magnesium 1.9 mg/dL (1.8-2.4); Potassium 3.7 mmol/L (3.5-5.1); Sodium 136 mmol/L (136-145); Total Protein 7.7 g/dL (6.4-8.2)
[2024-09-29] MEDS: Normal Saline - Diluent 50 ML VIAL IJ (21:54)
--- NOTE | 2024-09-29 21:54 | DI.CT_ITS ---
Exam(s) CT ABDOMEN PELVIS W EXAM: CT ABDOMEN PELVIS W CLINICAL HISTORY: RLQ pain TTP TECHNIQUE: Imaging Protocol: Axial computed tomography images with coronal and sagittal reformatted images were created and reviewed. CONTRAST MATERIAL: Intravenous: Omnipaque 350 Contrast volume:75 mL Oral: No COMPARISON: CT CT ABDOMEN PELVIS W from 10/20/2018 FINDINGS: ABDOMEN: Lung Bases: No acute abnormality. There is a small pericardial effusion. Liver: Normal density. No measurable mass. Portal, Superior Mesenteric, and Splenic Veins: Unremarkable. Gallbladder and Biliary Tract: No radiodense calculus or dilation. Pancreas: Normal density, no abnormal calcifications or inflammatory process. Spleen: Normal. Adrenals: No masses seen. Kidneys: Normal size, contour and axis. There is a nonobstructing 2 mm stone in the upper pole of the right kidney. No masses seen. Abdominal Aorta: Abdominal portion non-dilated. Bowel: There is no evidence of bowel obstruction. There is wall thickening seen in the proximal small bowel. There is stool throughout the colon which may reflect constipation. There is no evidence of appendicitis. Hyperdensities are seen within the stomach likely reflecting ingested food material. Peritoneal Cavity: There is a small amount of free fluid in the pelvis. This may be physiologic. No free air. Lymph Nodes: Within normal limits. Bones: Within normal limits for the patient's age. Soft Tissues: Unremarkable. PELVIS: Bladder: There is mild thickening of the wall of the urinary bladder. This likely is due to underdistention. Please correlate for any concern for cystitis. Reproductive Organs: Left ovarian cysts are present. The largest measures 2.1 cm. These are likely physiologic. Lymph Nodes: Within normal limits. Bones: Within normal limits for the patient's age. IMPRESSION: 1. There is wall thickening seen in the proximal small bowel suggesting an enteritis. 2. Large amount of stool throughout the colon consistent with constipation. 3. Small pericardial effusion. 4. There is no evidence of an acute appendicitis at this time. Follow-up as clinically appropriate. 5. The preliminary [facility] report was reviewed. RADIATION DOSE DELIVERED: 261.74mGy.cm Total DLP DATA REPOSITORY: All CT scans at this facility are submitted to the National Radiology Data Registry (NRDR) Dose Index Registry (DIR) with the [employer] ([employer]). RADIATION OPTIMIZATION: All CT scans at this facility use at least one of these dose optimization techniques: automated exposure control; mA and/or kV adjustment per patient size (includes targeted exams where dose is matched to clinical indication); or iterative reconstruction.
[2024-09-29 22:01] LABS: HCG Qual (Serum) Negative
--- NOTE | 2024-09-29 23:09 | W.ED.GENAD ---
Discharge Plan Disposition Patient Disposition: Other Disposition Not Listed Other Facility: [place] [facility]: Serious Discharge Details Clinical Impression: Abdominal pain Primary Care Provider: Shani Morrison ED Provider: Tabitha Lester Meds and New Rx's Prescriptions: No Action docusate sodium 100 mg tablet 100 mg PO DAILY PRN Jardiance 25 mg tablet 25 mg PO DAILY Qty: 90 3RF fluoxetine 40 mg capsule 40 mg PO DAILY lorazepam 0.5 mg tablet 0.5 mg PO TID PRN trazodone 100 mg tablet 100 mg PO DAILY aripiprazole 20 mg tablet 20 mg PO DAILY guanfacine 2 mg tablet 2 mg PO BID acetaminophen 650 mg tablet extended release 650 mg PO Q12H PRN Pepto-Bismol Ultra 525 mg tablet 525 mg PO Q30M PRN Rx Instructions: do not exceed 8 doses in a 24 hour period ammonium lactate 12 % cream 1 applic topical DAILY Qty: 280 3RF (DME) lancets 28 gauge misc 1 ea Miscellaneous BID Qty: 200 4RF Rx Instructions: FOR One Touch Ultra METER. DIAGNOSIS CODE E11.9 ibuprofen 200 MG capsule 1 - 2 cap PO Q 8 HR PRN Qty: 100 Rx Instructions: 200 MG-400 MG Q8HR PRN loperamide [Imodium A-D] 2 mg capsule 2 mg PO Q4H PRN (Reason: loose stool) Qty: 60 0RF Rx Instructions: administer after each loose stool until symptoms controlled; do not exceed 8 mg per 24 hrs (DME) blood-glucose meter [OneTouch Ultra2 Meter] Misc See Rx Instructions .ROUTE .MEDSUPPLY Qty: 1 0RF Rx Instructions: Check blood sugar BID ketoconazole 2 % cream 1 applic topical DAILY PRN (Reason: tinea corporis) Qty: 60 0RF multivitamin Tablet 1 tab PO DAILY Qty: 90 3RF pravastatin 80 mg tablet 80 mg PO DAILY Qty: 90 4RF Rx Instructions: increased dose/take one tablet daily metformin 500 mg tablet 500 mg PO BID Qty: 180 3RF (DME) OneTouch Ultra Test Strip See Rx Instructions .ROUTE .COMPLEX Qty: 100 4RF Dose Instruction: TEST TWO TIMES A DAY Rx Instructions: Test once daily semaglutide 7 mg tablet 7 mg PO DAILY HPI General Mode of arrival: ambulatory. Date/Time Provider Initiated Documentation: 09/29/24 20:06. Limitations to Documentation: no limitations. Information obtained by: patient and family. HPI Narrative: 39yo F with hx developmental delay, DM, presenting for abdominal pain which started around 3pm today. Has associated nausea, no vomiting. Eating well, taking fewer of her PO fluid supplements which she usually enjoys. No diarreha, last BM yesterday, normal, nonbloody; no BM today. Points to her suraapubic region when asked to localize pain. Feels like she is not able to fully empty her bladder. Otherwise in her usual state of health with no fevers, chills, rash, hematuria, chest pain, shortness of breath, vaginal discharge, or other concerns. Related Data Home Medications ?Medication ?Instructions ?Recorded ?Confirmed ibuprofen 200 mg capsule 1 - 2 cap PO Q 8 HR PRN #100 02/26/15 09/27/24 tab-caps loperamide 2 mg capsule (Imodium 2 mg PO Q4H PRN loose stool #60 09/06/20 09/27/24 A-D) caps guanfacine 2 mg tablet 2 mg PO BID 03/12/21 09/27/24 blood-glucose meter (OneTouch #1 ea 04/22/21 09/27/24 Ultra2 Meter) ketoconazole 2 % topical cream 1 applic topical DAILY PRN tinea 11/12/22 09/27/24 corporis #60 grams acetaminophen 650 mg 650 mg PO Q12H PRN 05/14/23 09/27/24 tablet,extended release bismuth subsalicylate 525 mg 525 mg PO Q30M PRN 05/14/23 09/27/24 tablet (Pepto-Bismol Ultra) docusate sodium 100 mg tablet 100 mg PO DAILY PRN 11/05/23 09/27/24 empagliflozin 25 mg tablet 25 mg PO DAILY #90 tabs 11/05/23 09/27/24 (Jardiance) multivitamin 1 tab PO DAILY #90 tabs 12/27/23 09/27/24 ammonium lactate 12 % topical cream 1 applic topical DAILY dry skin 05/03/24 09/27/24 #280 grams lancets 28 gauge #200 ea 05/03/24 09/27/24 pravastatin 80 mg tablet 80 mg PO DAILY #90 tabs 05/16/24 09/27/24 metformin 500 mg tablet 500 mg PO BID #180 tabs 06/12/24 09/27/24 blood sugar diagnostic (OneTouch #100 strips 08/17/24 09/27/24 Ultra Test strips) aripiprazole 20 mg tablet 20 mg PO DAILY 09/27/24 09/27/24 fluoxetine 40 mg capsule 40 mg PO DAILY 09/27/24 09/27/24 lorazepam 0.5 mg tablet 0.5 mg PO TID PRN 09/27/24 09/27/24 semaglutide 7 mg tablet 7 mg PO DAILY 09/27/24 09/27/24 trazodone 100 mg tablet 100 mg PO DAILY 09/27/24 09/27/24 Previous Rx's ?Medication ?Instructions ?Recorded loperamide 2 mg capsule (Imodium 2 mg PO Q4H PRN loose stool #60 09/06/20 A-D) caps blood-glucose meter (OneTouch #1 ea 04/22/21 Ultra2 Meter) ketoconazole 2 % topical cream 1 applic topical DAILY PRN tinea 11/12/22 corporis #60 grams empagliflozin 25 mg tablet 25 mg PO DAILY #90 tabs 11/05/23 (Jardiance) multivitamin 1 tab PO DAILY #90 tabs 12/27/23 ammonium lactate 12 % topical cream 1 applic topical DAILY dry skin 05/03/24 #280 grams lancets 28 gauge #200 ea 05/03/24 pravastatin 80 mg tablet 80 mg PO DAILY #90 tabs 05/16/24 metformin 500 mg tablet 500 mg PO BID #180 tabs 06/12/24 blood sugar diagnostic (OneTouch #100 strips 08/17/24 Ultra Test strips) Allergies Allergy/AdvReac Type Severity Reaction Status Date / Time risperidone (From Risperdal) AdvReac Severe Agitation Verified 09/29/24 20:17 sertraline AdvReac Intermediate agitation Verified 09/29/24 20:17 General Stated Complaint: Abd Prob VALDO: 3 Review of Systems Narrative: see HPI Exam Narrative Exam Narrative: General: Alert, well appearing, well nourished, in no acute distress. Head: Normocephalic, atraumatic Neck: Trachea midline, ?Neck supple. ENT: ?MMM.? Cardiac: ?RRR, no murmurs appreciated Resp: No respiratory distress. CTAB. Abd: ?Soft, non-distended. Mild diffuse tenderness to palpation with focal tenderness in RLQ, no rebound or guarding : ?+ suprapubic tenderness. No CVA tenderness. Extremities: ?No deformities.? No peripheral edema. Neurologic: GCS 15. ? Moves all extremities freely against gravity Course Vital Signs Vital signs: Vital Signs Temperature 37.0 C 09/29/24 20:15 Pulse 107 H 09/29/24 20:15 Respiratory Rate 18 09/29/24 20:15 Blood Pressure 102/71 09/29/24 20:15 Pulse Oximetry 96 09/29/24 20:15 Temperature 37.0 C 09/29/24 20:15 Temperature Source Tympanic 09/29/24 20:15 Pulse 107 H 09/29/24 20:15 Respiratory Rate 18 09/29/24 20:15 Blood Pressure 102/71 09/29/24 20:15 Blood Pressure Position Sitting 09/29/24 20:15 Pulse Oximetry 96 09/29/24 20:15 Oxygen Delivery Method Room Air 09/29/24 20:15 Oxygen Flow Rate 0 09/29/24 20:15 Lab/Test Results Lab/Test Results: Laboratory Tests Range/Units 09/29/24 09/29/24 20:26 21:30 WBC (4.4-10.8) 10^3/uL 5.29 RBC (3.93-5.22) 10^6/uL 4.64 Hgb (11.2-15.7) g/dL 14.0 Hct (36.0-46.0) % 41.7 MCV (80-95) fL 90 MCH (27.0-33.0) pg 30.2 MCHC (32.0-36.0) % 33.6 RDW (11.7-14.6) % 12.8 Plt Count (130-400) 10^3/uL 251 MPV (8.0-11.0) fL 9.4 Immature Gran % % 0.2 Neutrophils % % 65.4 Lymphocytes % % 25.3 Monocytes % % 8.5 Eosinophils % % 0.2 Basophils % % 0.4 Nucleated RBC % (0.0-0.3) % 0.0 Absolute Neutrophils (1.2-6.7) 10^3/uL 3.46 Absolute Lymphocytes (1.2-3.4) 10^3/uL 1.34 Absolute Monocytes (0.1-0.8) 10^3/uL 0.45 Absolute Eosinophils (0.0-0.7) 10^3/uL 0.01 Absolute Basophils (0.0-0.2) 10^3/uL 0.02 Sodium (136-145) mmol/L 136 Potassium (3.5-5.1) mmol/L 3.7 Chloride (98-107) mmol/L 99 Carbon Dioxide (21.0-32.0) mmol/L 30.4 Anion Gap (3-11) mmol/L 6.6 BUN (7-18) mg/dL 13 Creatinine (0.55-1.02) mg/dL 0.6 Est GFR (CKD-EPI 2020) (mL/min/1.73m2) 117.02 Glucose (74-106) mg/dL 122 H Calcium (8.5-10.1) mg/dL 10.1 Magnesium (1.8-2.4) mg/dL 1.9 Total Bilirubin (0.2-1.0) mg/dL 0.2 AST (15-37) U/L 17 ALT (14-59) U/L 18 Alkaline Phosphatase (46-116) U/L 59 Total Protein (6.4-8.2) g/dL 7.7 Albumin (3.4-5.0) g/dL 4.0 Serum HCG, Qual Negative Urine Color (Yellow) Yellow Urine Clarity (Clear) Clear Urine pH (5-8) 5.0 Ur Specific [place] (1.005-1.025) 1.015 Urine Protein (Neg-Trace) mg/dL Negative Urine Ketones (Negative) mg/dL 15 H Urine Blood (Negative) Negative Urine Nitrite (Negative) Negative Urine Bilirubin (Negative) Negative Urine Urobilinogen (Up to 0.2) mg/dL 0.2 Ur Leukocyte Esterase (Negative) Negative Urine RBC (0-2) HPF 0-2 Urine WBC (0-5) HPF 3-5 Ur Epithelial Cells (Negative) HPF Rare Urine Crystals (Negative) HPF Negative Urine Bacteria (Negative) HPF Rare Urine Casts (Negative) LPF Negative Urine Mucus (Negative) Negative Ur Culture Indicated? No Urine Glucose (Negative) mg/dL >=1000 H POC Urine Test Start: 09/29/24 20:41 Freq: Status: Complete Protocol: Document 09/29/24 20:42 KarelKAMAR (Rec: 09/29/24 20:42 [id number]) Test(Urine)-POC POC- Test( Negative urine) POC- Test(urine) Negative Medical Decision Making 39yo F with hx developmental delay, DM, presenting for abdominal pain which started around 3pm today. Associated nausea, no V/D. Good PO intake although less fluids than usual. Normal BM yesterday. Feels she is not emptying her bladder; no dysuria or hematuria or vaginal discharge. Tachycardiac to low 100's on arrival, vital signs otherwise reassuring. HR 90's on my assessment without intervention. Diffuse abdominal tenderness with focal tenderness in RLQ with no rebound or guarding. Broad differential including cystitis, appendicitis, bowel obstruction, other bowel pathology, ovarian cyst (less likely torsion, ectopic ). No US available at [facility] until Wednesday; will start with CT scan. Will give tylenol and toradol for pain while awaiting results of workup. -Labs reviewed as below, CBC reassuring with no leukocytosis or anemia, CMP with no actionable abnormalities, UA not infected. Not . -CT independently reviewed, no bowel obstruction or free fluid on my view. Radiology read below with copious findings (see below) most significant for small amount of free fluid in the pelvis and no visualization of appendix or right ovary. Also noted: urinary bladder wall thickening, heterogenous uterus, possible enteretis, hyperdensity in the stomach, complex cystic structures in left ovary, moderate pericardial effusion, soft tissue stranding of buttocks. On reassessment patient reports pain has worsened, now appears to be uncomfortable. No CP, pleuritic pain, or SOB; I am unsure what to make of this CT finding of moderate effusion and do not think this is related to her presenting complaint today. EKG NSR, not suggestive of pericarditis. Repeat VS remain reassuring. RLQ remains significantly tender without peritoneal signs; no upper abdominal tenderness. With good PO intake today and no vomiting, as well as normal white count, lower suspicion for appendicitis. Parra score 3, unlikely appy. At this point warrants transfer for pelvic US as I cannot r/o pelvic pathology as the cause of her symptoms here. May also benefit for cardiac US to further characterize effusion noted on CT. D[place] [facility], accepted ED to ED under Dr. Us. Will be transferred by EMS. Oncoming physician Dr. Silver aware of patient and will f/u on transport availability Imaging Data Radiologic Study: Imaging: CT Scan Radiologist's impression: IMPRESSION: 1. There is urinary bladder wall thickening, concerning for urinary tract infection. The uterus is also heterogeneous in appearance which should be correlated with any concern for infection. 2. Findings as described above concerning for enteritis. There is also some hyperdensity within the stomach which may be related to ingested products but should be correlated with any concern for blood products. 3. The appendix is not clearly seen secondary to multiple loops of bowel in pelvis. If there is clinical concern for acute appendicitis, a repeat examination is suggested following the administration of oral contrast. 4. Minimally complex cystic structures in the left ovary. Ultrasound recommended for further evaluation. The right ovary is not well evaluated. If there is thought to be a gynecologic source for the patient's right lower quadrant pain, it is suggested that the ultrasound be performed today. 5. Moderate pericardial effusion, new from prior examination. Clinical correlation and cardiology consult suggested. 6. Small amount of free fluid in the pelvis. 7. There is stranding in the soft tissues of the medial buttocks bilaterally. This may be secondary to edema but should be correlated with any concern for trauma or infection. Findings suggestive of constipation. Other findings/details as above Lab Data Lab results reviewed: Yes I reviewed the patient's lab results. Labs: Laboratory Tests Range/Units 09/29/24 09/29/24 20:26 21:30 WBC (4.4-10.8) 10^3/uL 5.29 RBC (3.93-5.22) 10^6/uL 4.64 Hgb (11.2-15.7) g/dL 14.0 Hct (36.0-46.0) % 41.7 MCV (80-95) fL 90 MCH (27.0-33.0) pg 30.2 MCHC (32.0-36.0) % 33.6 RDW (11.7-14.6) % 12.8 Plt Count (130-400) 10^3/uL 251 MPV (8.0-11.0) fL 9.4 Immature Gran % % 0.2 Neutrophils % % 65.4 Lymphocytes % % 25.3 Monocytes % % 8.5 Eosinophils % % 0.2 Basophils % % 0.4 Nucleated RBC % (0.0-0.3) % 0.0 Absolute Neutrophils (1.2-6.7) 10^3/uL 3.46 Absolute Lymphocytes (1.2-3.4) 10^3/uL 1.34 Absolute Monocytes (0.1-0.8) 10^3/uL 0.45 Absolute Eosinophils (0.0-0.7) 10^3/uL 0.01 Absolute Basophils (0.0-0.2) 10^3/uL 0.02 Sodium (136-145) mmol/L 136 Potassium (3.5-5.1) mmol/L 3.7 Chloride (98-107) mmol/L 99 Carbon Dioxide (21.0-32.0) mmol/L 30.4 Anion Gap (3-11) mmol/L 6.6 BUN (7-18) mg/dL 13 Creatinine (0.55-1.02) mg/dL 0.6 Est GFR (CKD-EPI 2020) (mL/min/1.73m2) 117.02 Glucose (74-106) mg/dL 122 H Calcium (8.5-10.1) mg/dL 10.1 Magnesium (1.8-2.4) mg/dL 1.9 Total Bilirubin (0.2-1.0) mg/dL 0.2 AST (15-37) U/L 17 ALT (14-59) U/L 18 Alkaline Phosphatase (46-116) U/L 59 Total Protein (6.4-8.2) g/dL 7.7 Albumin (3.4-5.0) g/dL 4.0 Serum HCG, Qual Negative Urine Color (Yellow) Yellow Urine Clarity (Clear) Clear Urine pH (5-8) 5.0 Ur Specific [place] (1.005-1.025) 1.015 Urine Protein (Neg-Trace) mg/dL Negative Urine Ketones (Negative) mg/dL 15 H Urine Blood (Negative) Negative Urine Nitrite (Negative) Negative Urine Bilirubin (Negative) Negative Urine Urobilinogen (Up to 0.2) mg/dL 0.2 Ur Leukocyte Esterase (Negative) Negative Urine RBC (0-2) HPF 0-2 Urine WBC (0-5) HPF 3-5 Ur Epithelial Cells (Negative) HPF Rare Urine Crystals (Negative) HPF Negative Urine Bacteria (Negative) HPF Rare Urine Casts (Negative) LPF Negative Urine Mucus (Negative) Negative Ur Culture Indicated? No Urine Glucose (Negative) mg/dL >=1000 H PFSH All Active Problems (Updated 09/29/24 @ 23:59 by Tabitha Lester MD) Abdominal pain (Acute) Premenstrual symptom (Acute) Pica in adults (Acute) eating her feces Prolonged QT interval (Chronic) QTc 494 October 2023 Aggressive behavior (Chronic) for attention, has behavior management plan. Diabetes mellitus type 2, controlled (Chronic) Obsessive-compulsive disorder (Chronic) Managed at [facility] Attention deficit hyperactivity disorder, combined type (Chronic) Managed at [facility] Medical History Benign essential tremor (02/01/17) evaluated by alcohol syndrome (08/23/12) History of developmental delay (10/22/15) Hx of drug overdose (~04/2020) gesture, attention seeking. Surgical History Status post nail surgery Family History Mother No problems noted. Father Essential hypertension Sister No problems noted. Grandfather Stroke Grandfather No problems noted. Grandmother Heart disease Grandmother No problems noted. Social History Smoking/Tobacco Use Status: Never Second Hand Exposure: No Smoking risk assessment performed?: Yes Alcohol Intake: never Drug use: Never Substance use type: does not use Caregiver/Support person: Yes Household members: other Details: 14/09 staff Housing: apartment Do you need help understanding health information?: Rarely Pets and animals: No Sexually active: No Do you think of yourself as: straight/heterosexual Current gender identity: female What is your relationship status?: never How often do you talk on the phone with friends or family?: once per week How often do you get together with friends or relatives?: once per week How often do you attend yarsani or jain services?: 1-3 times per year Do you belong to any clubs or organized social groups?: yes Panel score (0-1 are the most socially isolated patients): 1 What type of physical activity do you participate in: walking, bicycling, swimming and other Details: Hiking, basketball, skiing, bowling Duration: 45-60 minutes/day Frequency: daily Sarah/Samaritan: No preference Seatbelt use: always Drive intox or ride w/intox escort vehicle driver: No Do you feel safe at home: No Do you feel safe in your relationship?: Yes Additional Social history: Enjoys participating in [employer] Olympics, enjoys sports. brought in by [facility] staff attended by security Female Reproductive History Menstrual Duration of menses: 3-5 days control method: none
--- NOTE | 2024-09-29 23:15 | DI.VRAD_ITS ---
Addendum created by Tabitha Arauz MD on 09/29/2024 11:30:40 PM EDT: THIS REPORT CONTAINS FINDINGS THAT MAY BE CRITICAL TO PATIENT CARE. The findings were verbally communicated via telephone conference with TABITHA KING at 11:15 PM EDT on 09/29/2024. The findings were acknowledged and understood. Initial report created on 09/29/2024 11:14:19 PM EDT: PROCEDURE INFORMATION: Exam: CT Abdomen And Pelvis With Contrast Exam date and time: 09/29/2024 9:40 PM Age: 39 years old Clinical indication: Abdominal pain; Localized; Right lower quadrant (rlq); Rlq pain ttp TECHNIQUE: Imaging protocol: Computed tomography of the abdomen and pelvis with contrast. Radiation optimization: All CT scans at this facility use at least one of these dose optimization techniques: automated exposure control; mA and/or kV adjustment per patient size (includes targeted exams where dose is matched to clinical indication); or iterative reconstruction. Contrast material: [id number]; Contrast volume: 75 ml; Contrast route: INTRAVENOUS (IV); COMPARISON: CT ABDOMEN PELVIS W 10/20/2018 4:52 PM FINDINGS: Limitations: This is a technically compromised examination secondary to the lack of intraperitoneal fat. Evaluation of the stomach and bowel is limited secondary to the lack of oral contrast. Heart: There is a moderate pericardial effusion, new from the prior exam. Esophagus: There is wall prominence in the distal esophagus which can be seen with underdistention or esophagitis. Liver: Normal. No mass. Gallbladder and biliary ducts: The gallbladder is contracted and not well assessed. No definite calcified gallstones are identified. Pancreas: Normal. No ductal dilation. Spleen: Normal. No splenomegaly. Adrenal glands: Normal. No mass. Kidneys and ureters: Nonobstructive right renal calculus. No hydronephrosis. Stomach and bowel: There is some hyperdensity within the stomach which may be related to ingested products but should be correlated with any concern for blood products. There are some prominent/ mildly dilated loops of small bowel in the upper abdomen without a clear transition point. Wall thickening is seen. Scattered fluid is also identified within loops of small bowel within the pelvis along with areas of wall prominence and enhancement. Findings are worrisome for enteritis. There is stool throughout the colon which can be seen with constipation. Appendix: The appendix is not clearly seen secondary to multiple loops of bowel in the pelvis. If there is clinical concern for acute appendicitis, a repeat examination is suggested following the administration of oral contrast. Intraperitoneal space: Small amount of free fluid in the pelvis. No free air. Vasculature: Unremarkable. No abdominal aortic aneurysm. Lymph nodes: Unremarkable. No enlarged lymph nodes. Urinary bladder: There is urinary bladder wall thickening. Reproductive: Uterus is somewhat heterogeneous in appearance which should be correlated with any concern for infection. The right ovary is not well assessed secondary to multiple loops of bowel in the pelvis. There are 2 rim enhancing cystic structures in the left adnexa (1.8 cm, 1.6 cm) which may contain subtle septations. Suggest ultrasound for further evaluation. Bones/joints: Scoliosis and skeletal degenerative changes are seen. No acute fracture. Soft tissues: There is stranding in the soft tissues of the medial buttocks bilaterally. This may be secondary to edema but should be correlated with any concern for trauma or infection. IMPRESSION: 1. There is urinary bladder wall thickening, concerning for urinary tract infection. The uterus is also heterogeneous in appearance which should be correlated with any concern for infection. 2. Findings as described above concerning for enteritis. There is also some hyperdensity within the stomach which may be related to ingested products but should be correlated with any concern for blood products. 3. The appendix is not clearly seen secondary to multiple loops of bowel in pelvis. If there is clinical concern for acute appendicitis, a repeat examination is suggested following the administration of oral contrast. 4. Minimally complex cystic structures in the left ovary. Ultrasound recommended for further evaluation. The right ovary is not well evaluated. If there is thought to be a gynecologic source for the patient's right lower quadrant pain, it is suggested that the ultrasound be performed today. 5. Moderate pericardial effusion, new from prior examination. Clinical correlation and cardiology consult suggested. 6. Small amount of free fluid in the pelvis. 7. There is stranding in the soft tissues of the medial buttocks bilaterally. This may be secondary to edema but should be correlated with any concern for trauma or infection. Findings suggestive of constipation. Other findings/details as above. Dictated and Authenticated by: Tabitha Arauz MD. Orderin Tayler Lu MD
[2024-09-29] MEDS: MORPHine 4 MG/ML SYR IVP (23:43)
--- NOTE | 2024-09-29 23:45 | RT.EKG_ITS ---
APPROVED REPORT Exam: Resting ECG Reason for Exam: pericardial effusion Patient Location: E HR:97 bpm ECG Measurements Heart Rate 97 AXIS OK 152 P 74 QRSd 87 QRS 91 QT 388 T 59 QTc 494 Conclusion Sinus rhythm...normal P axis, V-rate 60- [address] segment or T wave abnormalities to suggest occlusive ME
[2024-09-30] MEDS: LORazepam 1 MG TAB PO (01:00)
[2024-09-30] MEDS: ACETAMINOPHEN 1,000 MG/100 ML BAG 400 MG IVPB (05:02)
[2024-09-30] MEDS: MORPHine 4 MG/ML SYR IVP (06:43)
== END 2024-09-30 07:47 | disposition other institution (70) ==
PROVIDERS: Emergency Provider Student in an Organized Health Care Education/Training Program; PCP Family Medicine
DX: R11.0 Nausea (principal); R10.31 Right lower quadrant pain
CPT/HCPCS: 99285 ×2; 96374; 96375; 96376; 81025; 80053; 93005; 74177; 81003; 81015; 83735; 84703; 85025; 93010; J0131; J2270; J3490

== ENCOUNTER 2024-10-18 15:05 | Outpatient (CLI) | payer MEDICARE, MEDICAID, SELFPAY ==
[2024-10-18 14:22] LABS: Lithium 0.4 mmol/L (0.6-1.2)
== END 2024-10-18 15:06 | disposition home or self-care (01) ==
LOC: LBO 15:06
PROVIDERS: PCP Family Medicine; Visit Provider Psychiatry & Neurology Psychiatry
DX: Z79.899 Other long term (current) drug therapy (principal)
CPT/HCPCS: 36415; 80178

== ENCOUNTER 2024-10-25 11:51 | Outpatient (CLI) | payer MEDICARE, MEDICAID, SELFPAY ==
[2024-10-25 12:43] LABS: Lithium 0.7 mmol/L (0.6-1.2)
== END 2024-10-25 11:52 | disposition home or self-care (01) ==
LOC: LBO 11:52
PROVIDERS: PCP Family Medicine; Visit Provider Family Medicine
DX: F42.9 Obsessive-compulsive disorder, unspecified (principal)
CPT/HCPCS: 36415; 80178

== ENCOUNTER → 2024-11-01 14:00 | Outpatient (BNVA) | payer MEDICARE, MEDICAID, SELFPAY | PROVIDERS: PCP Family Medicine; Referring Provider Family Medicine; Visit Provider Surgery | DX: R93.3 Abnormal findings on diagnostic imaging of other parts of digestive tract (principal); R19.8 Other specified symptoms and signs involving the digestive system and abdomen; R19.4 Change in bowel habit; R10.9 Unspecified abdominal pain | CPT/HCPCS: 99213 ==

== ENCOUNTER → 2025-01-11 06:12 | Outpatient (CLI) | payer MEDICARE, MEDICAID, SELFPAY ==
--- NOTE | 2025-01-11 14:30 | DI.US_ITS ---
APPROVED REPORT EXAM: Comprehensive 2D, Doppler, and color-flow Echocardiogram Patient Location: Out-Patient Well Puller: Alice King RDCS (AE) Indications: F/U pericardial effusion Other Information Study Quality: Adequate Conclusion Normal left ventricular wall thickness and chamber size. Ejection fraction is 50 to 55%. Wall motion is normal Normal right ventricular size and function Both atria are normal in size There are no structural valvular abnormalities Mild mitral regurgitation Small pericardial effusion, no signs of tamponade Compared to the echocardiogram report of October 02, 2024, pericardial effusion may be smaller Wall motion Left Ventricle The left ventricle is normal size. The left ventricular systolic function is normal. The left ventricular ejection fraction is within the normal range. There is normal left ventricular wall thickness. There is normal LV segmental wall motion. There is no ventricular septal defect visualized. LVEF is 50-55%. Right Ventricle The right ventricle is normal size. Right ventricular systolic function is grossly normal. Atria The left atrium size is normal. The right atrium size is normal. The interatrial septum is intact with no evidence for an atrial septal defect. Aortic Valve The aortic valve is normal in structure. Aortic valve is trileaflet. There is no aortic valvular stenosis. No aortic regurgitation is present. Mitral Valve The mitral valve is normal in structure. No evidence of mitral valve stenosis. Mild mitral regurgitation. Tricuspid Valve The tricuspid valve is normal in structure. There is no tricuspid valve stenosis. Trace tricuspid regurgitation. Unable to assess PA pressure. Pulmonic Valve The pulmonary valve is normal in structure. There is no pulmonic valvular stenosis. There is no pulmonic valvular regurgitation. Great Vessels The aortic root is normal in size. The ascending aorta is normal in size. Aortic arch is not well visualized. IVC is normal in size and collapses >50% with inspiration. Pericardium Small circumferential pericardial effusion. 2D Dimensions IVSD d PLAX 0.70 cm F: 0.6-1.0 Ao Root d 2.36 cm F: 2.7 - 3.3 LVPW d PLAX 0.72 cm F: 0.6 - 1.0 Ao Asc Diam d 2.86 cm F: 2.3 - 3.1 LVID d PLAX 5.00 cm F: 3.8 - 5.2 LVDs 3.73 cm F: 2.2 - 3.5 LV EF Teichholz 49.7 % FS 25.30 % LV EDV (Teich) 117.7 mL LV ESV (Teich) 59.2 mL Auto EF LV EDV A4C 116.8 mL LV EDV A2C 103.0 mL LV EDV BP 110.4 mL LV ESV A4C 58.4 mL LV ESV A2C 50.7 mL LV ESV BP 53.5 mL LVEF(%) A4C 50.0 % LVEF(%) A2C 50.8 % LVEF(%) BP 51.5 % LV SV A4C 58.4 ml LV SV A2C 52.3 ml LV SV BP 56.9 ml LV CO A4C 4.2 L/min LV CO A2C 3.6 L/min LV CO BP 3.9 L/min HR A4C 71.29 BPM HR A2C 68.94 BPM LV EDV Index (BP) LA Volume LA Length A4C 4.7 cm LA Length A2C 4.7 cm LA Area A4C s 13.26 cm2 LA Area A2C s 12.83 cm2 LA Vol A4C A-L 31.43 mL LA Vol A2C A-L 29.44 mL LA Vol Biplane A-L 30.4 mL LA Vol/BSA A4C A-L LA Vol/BSA A2C A-L LA Vol/BSA BP A-L 19.9 mL/m2 LA Vol A4C MOD 29.7 mL LA Vol A2C MOD 28.0 mL LA Vol BP MOD 28.8 mL RA Volume RA Area A4C 10.3 cm2 RA ESV A4C (A-L) 21.1mL RA Vol/BSA A4C A-L RA Length A4C 4.3 cm RA ESV A4C (MOD) 19.4mL LV Diastology MV E Vmax 0.91 (0.4-1.3 m/s) MV A Vmax 0.85 (0.4-1.3 m/s) E/A Ratio 1.1 Aortic Valve AoV Vmax 1.31 m/s LVOT Vmax 1.11 m/s AoV Peak Grad 6.9 mmHg LVOT Peak Grad 4.9 mmHg AoV Area (Vmax) 2.32 cm2 LVOT VTI 0.227 m AoV VTI 0.284 m LVOT Mean Grad 2.8 mmHg AoV Mean Tal. 0.91 m/s LVOT SV 62.31 mL AoV Mean Grad 3.8 mmHg LVOT Diam s 1.85 cm AoV Area (VTI) 2.19 cm2 AV Regurg Peak Gr. 6.86 mmHg Velocity Ratio 0.85 Mitral Valve MV DT 171 (160-240 msec) MV Vmax TIPS 0.86 m/s MV Mean Grad 1.3 (<2mmHg) MV VTI 0.272 m Pulmonary Valve PV Vmax 0.99 (0.5-1.5 m/s) RVOT Vmax 0.79 m/s PV Peak Grad 4.0 mmHg RVOT Peak Gr. 2.5 mmHg PV Mean Tal 0.71 m/s RVOT VTI 0.219 m PV Mean Grad 2.3 mmHg RVOT Mean Gr. 1.5 mmHg Tricuspid Valve RA Pressure 3.00 mmHg
== END ==
LOC: DI 06:13
PROVIDERS: PCP Family Medicine; Visit Provider Family Medicine
DX: I31.39 Other pericardial effusion (noninflammatory) (principal)
CPT/HCPCS: 93306

== ENCOUNTER 2025-01-17 02:13 | Outpatient (CLI) | payer MEDICARE, MEDICAID, SELFPAY ==
[2025-01-17 12:14] LABS: ALT 25 U/L (10-49); AST 28 U/L (<34); Albumin 4.2 g/dL (3.2-5.0); Alkaline Phosphatase 33 U/L (46-116); Anion Gap 8.5 mmol/L (3-11); BUN 12 mg/dL (9-23); Bilirubin, Total 0.40 mg/dL (0.2-1.2); CO2 23.5 mmol/L (20.0-31.0); Calcium 9.3 mg/dL (8.3-10.6); Chloride 106 mmol/L (98-107); Glucose 134 mg/dL (74-106); Potassium 4.1 mmol/L (3.5-5.1); Sodium 138 mmol/L (136-145); Total Protein 7.3 g/dL (5.7-8.2)
[2025-01-17 12:16] LABS: TSH (W/Ref FT4) 2.05 uIU/mL (0.55-4.78)
[2025-01-17 12:45] LABS: Hemoglobin A1C 6.3 % (<5.7)
[2025-01-17 13:00] LABS: Lithium 0.70 mmol/L (0.60-1.20)
== END 2025-01-17 02:14 | disposition home or self-care (01) ==
LOC: LBO 02:13
PROVIDERS: PCP Family Medicine; Visit Provider Psychiatry & Neurology Psychiatry
DX: Z79.899 Other long term (current) drug therapy (principal)
CPT/HCPCS: 36415; 80053; 80178; 81003; 83036; 84443